=== PATIENT | female | born 1940 | race Caucasian/White ===

== ENCOUNTER → 2016-11-27 | Outpatient (CLI) | payer OTHER ==
[~2016-11-27] MED LIST: ASPI-435 PO; CHOL100027 PO; CLTP PO; DYZ PO; MAGN500C PO; METO25TA3 PO; MULT-506 PO; NAPR500T3 PO; SIMV20TA2 PO; SYN125 PO
[2016-11-27 12:48] LABS: ESTIMATED AVERAGE GLUCOSE 137 mg/dl; HA1C FLAG Normal (Normal)
[2016-11-27 13:04] LABS: BLOOD UREA NITROGEN 23 mg/dl (7-18); BUN/CREATININE RATIO 30.5 (10-20); CALCIUM 9.5 mg/dl (8.5-10.1); CARBON DIOXIDE 32 mmol/L (21-32); CHLORIDE 106 mmol/L (98-107); CREATININE 0.74 mg/dl (0.60-1.20); GLUCOSE 140 mg/dl (70-99); POTASSIUM 3.6 mmol/L (3.5-5.1); SODIUM 141 mmol/L (136-145)
== END | disposition home or self-care (01) ==
LOC: C.LABPVFM 10:04
PROVIDERS: ATTEND Nurse Practitioner
DX: I10 Essential (primary) hypertension (principal); E03.9 Hypothyroidism, unspecified; R73.01 Impaired fasting glucose

== ENCOUNTER 2019-10-05 21:30 | Inpatient (IN) ==
[2019-10-05] MEDS ORDERED: SODIUM CHLORIDE 0.9% 1000ML 1,000 ML IV ONE (21:52)
[2019-10-05 22:25] LABS: Eosinophils # (auto) 0.02 K/uL (0-0.5); Eosinophils % (auto) 0.1 %; Hematocrit (blood only) 48.5 % (37-47); Hemoglobin 16.7 g/dL (12.0-16.0); Immature Granulocytes # (auto) 0.03 K/uL (0.00-0.02); Immature Granulocytes % (auto) 0.2 %; Lymphocytes % (auto) 10.4 %; Mean Corpuscular Hemoglobin 32.4 pg (25-34); Mean Corpuscular Hgb Conc 34.4 g/dL (32-36); Mean Platelet Volume 10.5 fL (7.4-10.4); Monocytes # (auto) 1.31 K/uL (0.11-0.59); Monocytes % (auto) 9.7 %; Neutrophils # (auto) 10.72 K/uL (1.4-6.5); Neutrophils % (auto) 79.6 %; Platelet Count 355 K/uL (130-400); RDW Coefficient of Variation 13.5 % (11.5-14.5); RDW Standard Deviation 46.1 fL (36.4-46.3); Red Blood Count 5.16 M/uL (4.2-5.4); White Blood Count 13.48 K/uL (4.8-10.8)
[2019-10-05 22:41] LABS: Alanine Aminotransferase 45 U/L (12-78); Albumin Level 3.5 gm/dl (3.4-5.0); Aspartate Aminotransferase 27 U/L (15-37); BUN Creatinine Ratio 33.4 (10-20); Blood Urea Nitrogen 34 mg/dl (7-18); Calcium 9.9 mg/dl (8.5-10.1); Carbon Dioxide 35 mmol/L (21-32); Chloride 100 mmol/L (98-107); Creatinine Clr Calc Pharmacy 49.7 ml/min; Est GFR (African American) 60.9; Est GFR (Non-African American) 52.5; Glucose 155 mg/dl (70-99); Magnesium 2.4 mg/dl (1.8-2.4); Sodium 139 mmol/L (136-145)
[2019-10-05 22:52] LABS: Albumin Globulin Ratio 0.9 (0.9-2); Alkaline Phosphatase 58 U/L (45-117); Bilirubin,Total 1.1 mg/dl (0.2-1); Globulin 3.8 gm/dl (2.5-4.0); Total Protein 7.3 gm/dl (6.4-8.2); Troponin I < 0.015 ng/ml (0-0.045)
[2019-10-05] MEDS ORDERED: OPTIRAY 320 125ml IV PRN (23:50)
[2019-10-05 23:59] LABS: Appearance Urine Clear (Clear); Bacteria Urine Automated Negative (Negative); Bilirubin Urine Negative (Negative); Blood Urine Trace (Negative); Color Urine Yellow; Glucose Urine UA Negative (Negative); Ketones Urine Trace (Negative); Leukocyte Esterase Urine 1+ (Negative); Nitrite Urine Negative (Negative); Protein Urine Trace (Negative); Specific Gravity Urine 1.022 (1.000-1.030); Urobilinogen Urine Negative (Negative)
--- NOTE | 2019-10-06 00:16 | Emergency Department Note ---
History of Present Illness General Chief complaint: Fall Stated complaint: WEAKNESS, FALL, FATIGUE Time Seen by Provider: 10/05/19 21:33 Source: patient Mode of arrival: EMS Limitations: no limitations History of Present Illness This patient is an 79-year-old female who presents to the emergency department via EMS for evaluation of weakness and a fall. The patient reports that she fell while getting up to go to the bathroom tonight. She believes that she was tired and may have tripped. Patient does report she has been more weak than normal over the past 4 to 5 days. She states that this started after being outside in the hot sun unloading groceries. She feels it may be heat related. She states that over the past 4 to 5 days, she has been very weak and has wanted to do nothing but sleep all day. She reports some weakness in her left arm which also has been present for several days. She reports a prior supraspinatus repair of the arm. The patient states that she did not strike her head or injure anything when she fell tonight. She states that she tripped and caught herself and landed in a seated position in the bathtub. She called her neighbor, who is a PA and came to help her and recommended that she come here f or evaluation. She denies fevers, headache, chest pain, shortness of breath, abdominal pain, vomiting or urinary symptoms. Home Medications Home Medications Medication Instructions Recorded Confirmed Type Synthroid 125 mcg tablet 125 mcg PO DAILY #90 tab NS 09/26/19 10/05/19 Rx metoprolol succinate 25 mg 25 mg PO DAILY #30 tab 09/26/19 10/05/19 Rx tablet,extended release 24 hr All Day Energy 1 tab PO DAILY 10/05/19 10/05/19 History Probiotic & Vit B 1 tab PO DAILY 10/05/19 10/05/19 History cephalexin [Keflex] 250 mg PO TID 10/05/19 10/05/19 History Allergies Allergy/AdvReac Type Severity Reaction Status Date / Time Penicillins Allergy Unknown HIVES TO Verified 10/05/19 23:03 "CILLINS" Past Med/Surg History Medical History Arthralgia of multiple sites (Chronic) History of hyperlipidemia HTN (hypertension) (Chronic) Hypothyroidism (Chronic) Impaired fasting glucose (Chronic) Open fracture of great toe of left foot (Resolved) Open fracture of great toe of left foot (Inactive) Surgical History History of knee replacement Hx of tonsillectomy Hx of wisdom tooth extraction S/P cholecystectomy (Inactive) Social History Smoking Status: Never smoker Hx Alcohol Use: Yes Alcohol type: wine Hx Substance Use: No Preferred Language: Libyan Communication Ability: Effective Plastics Patternmaker Required: No Beliefs That Will Affect Care: None marital status: Unknown Current Living Situation: Other Current Living Situation Comment: With partner Dalia Angel current occupational status: retired Feels Safe at Home: Yes caffeine: Yes Dental Care, Regularly: No Physical Activity Frequency: Does not Exercise Seatbelt Use: always Sunscreen Use: Yes Review of Systems A total of 10 systems reviewed and were otherwise negative Physical Exam Vital Signs Vital Signs - 24 hr 10/05/19 21:35 10/05/19 21:38 10/05/19 21:39 Temperature 37.0 C Temperature Source Oral Pulse Rate 71 72 71 Pulse Rate from SpO2 Sensor 71 71 Respiratory Rate 20 17 18 Respiratory Effort / Characteristics Non-Labored Spontaneous Respiratory Depth Normal Respiratory Pattern Regular Blood Pressure 203/89 H 203/89 H Blood Pressure Mean 134 127 Pulse Oximetry 95 95 95 Oxygen Delivery Method Room Air Sepsis Recent Fever Within 48 Hours No Sepsis New/Unexplained Change in Mental Status No Sepsis Action Taken by Nursing No Action Required 10/05/19 22:00 10/05/19 22:11 10/05/19 22:30 Temperature Temperature Source Pulse Rate 70 69 69 Pulse Rate from SpO2 Sensor Respiratory Rate 19 Respiratory Effort / Characteristics Respiratory Depth Respiratory Pattern Blood Pressure 173/86 H Blood Pressure Mean 127 Pulse Oximetry Oxygen Delivery Method Sepsis Recent Fever Within 48 Hours Sepsis New/Unexplained Change in Mental Status Sepsis Action Taken by Nursing 10/05/19 22:31 Temperature Temperature Source Pulse Rate 69 Pulse Rate from SpO2 Sensor Respiratory Rate 23 Respiratory Effort / Characteristics Respiratory Depth Respiratory Pattern Blood Pressure 198/92 H Blood Pressure Mean 127 Pulse Oximetry Oxygen Delivery Method Sepsis Recent Fever Within 48 Hours Sepsis New/Unexplained Change in Mental Status Sepsis Action Taken by Nursing VITALS: Vitals are noted on the nurse's note and reviewed by myself. GENERAL: This is an 79-year-old female, in no acute distress, well-developed well-nourished. SKIN: The skin was without rashes, erythema, edema, or bruising. HEAD: Normocephalic atraumatic. EARS: External auditory canals clear, tympanic membranes pearly lay without erythema or effusion bilaterally. EYES: Pupils equal round and reactive to light and accommodation. Extraocular movements intact. MOUTH: Mucous membranes moist. Tonsils are not enlarged. Pharynx without erythema or exudate. NECK: Supple without nuchal rigidity. No lymphadenopathy. HEART: Regular rate and rhythm without murmurs gallops or rubs. LUNGS: Clear to auscultation bilaterally without wheezes, rales or rhonchi. ABDOMEN: Positive bowel sounds x 4. Soft, nontender to palpation. MUSCULOSKELETAL: Patient is full range of motion/strength of her lower extremities. Patient has 2/5 strength in her left upper extremity, 3/5 strength in her right upper extremity. NEURO: Patient was alert and oriented to person place and time. Course Consultations Consultation #1: Dr. Clemente - [facility] [place] Administered Medications Acetaminophen (Tylenol) 650 mg PO Q4H PRN PRN Reason: pain/fever Stop: 11/05/19 03:22 Last Admin: 10/06/19 08:04 Dose: 650 mg Documented by: [id number] Enoxaparin Sodium (Lovenox) 40 mg SQ DAILY@1900 [facility] Stop: 11/05/19 18:59 Last Admin: 10/06/19 19:44 Dose: 40 mg Documented by: [id number] Ioversol (Optiray 320 125ml) 125 ml IV ONCE PRN PRN Reason: Interaction Checking Stop: 10/09/19 23:49 Last Admin: 10/05/19 23:50 Dose: 118 ml Documented by: [id number] Levothyroxine Sodium (Synthroid) 125 mcg PO DAILYBB [facility] Stop: 11/05/19 06:29 Last Admin: 10/06/19 05:25 Dose: 125 mcg Documented by: [id number] Metoprolol Succinate (Toprol Xl) 25 mg PO DAILY [facility] Stop: 11/05/19 08:59 Last Admin: 10/06/19 08:04 Dose: 25 mg Documented by: [id number] Discontinued Medications Hydralazine HCl (Hydralazine Hcl) 10 mg IV NOW [facility] Stop: 10/06/19 16:39 Last Admin: 10/06/19 17:00 Dose: 10 mg Documented by: [id number] Sodium Chloride (Nss 1000ml) 1,000 mls @ 999 mls/hr IV .Q1H1M ONE Stop: 10/05/19 22:52 Last Infusion: 10/05/19 23:40 Dose: 0 mls/hr Documented by: [id number] Admin: 10/05/19 22:19 Dose: 999 mls/hr Documented by: [id number] Potassium Chloride/Sodium Chloride (Normal Saline W/20 Meq Kcl) 20 meq in 1,000 mls @ 100 mls/hr IV .Q10H TONA Stop: 10/06/19 23:59 Last Admin: 10/06/19 15:58 Dose: 100 mls/hr Documented by: [id number] Infusion: 10/06/19 14:50 Dose: 100 mls/hr Documented by: [id number] Infusion: 10/06/19 13:20 Dose: 100 mls/hr Documented by: [id number] Infusion: 10/06/19 12:30 Dose: 0 mls/hr Documented by: [id number] Admin: 10/06/19 04:00 Dose: 100 mls/hr Documented by: [id number] Potassium Chloride (Klor-Con M20) 20 meq PO NOW STA Stop: 10/06/19 08:14 Last Admin: 10/06/19 08:48 Dose: 20 meq Documented by: [id number] Potassium Chloride (Klor-Con M20) 20 meq PO NOW STA Stop: 10/06/19 18:21 Last Admin: 10/06/19 19:07 Dose: 20 meq Documented by: [id number] Medical Decision Making Differential Diagnosis Infection, dehydration, metabolic abnormality, hypo/hyperglycemia, electrolyte disturbance, anemia, hypoxia, cardiac sources, intracerebral event, toxicologic, neurologic, as well as other pathologies. Home Medications Current Medication List: was personally reviewed by me Laboratory Data Attestation: I reviewed the patient's lab results. Result diagrams: 10/06/19 17:28 10/06/19 17:28 Lab Results 10/05/19 10/05/19 10/05/19 Range/Units 22:14 22:14 22:14 WBC 13.48 H (4.8-10.8) K/uL RBC 5.16 (4.2-5.4) M/uL Hgb 16.7 H (12.0-16.0) g/dL Hct 48.5 H (37-47) % MCV 94.0 (80-100) fL MCH 32.4 (25-34) pg MCHC 34.4 (32-36) g/dL RDW Std Deviation 46.1 (36.4-46.3) fL RDW Coeff of Evan 13.5 (11.5-14.5) % Plt Count 355 (130-400) K/uL MPV 10.5 H (7.4-10.4) fL Immature Gran % (Auto) 0.2 % Neut % (Auto) 79.6 % Lymph % (Auto) 10.4 % [place] % (Auto) 9.7 % Eos % (Auto) 0.1 % Baso % (Auto) 0.0 % Neut # (Auto) 10.72 H (1.4-6.5) K/uL Lymph # (Auto) 1.40 (1.2-3.4) K/uL [place] # (Auto) 1.31 H (0.11-0.59) K/uL Eos # (Auto) 0.02 (0-0.5) K/uL Baso # (Auto) 0.00 (0-0.2) K/uL Immature Gran # (Auto) 0.03 H (0.00-0.02) K/uL ESR 21 (0-21) mm/hr Sodium 139 (136-145) mmol/L Potassium 3.0 L (3.5-5.1) mmol/L Chloride 100 (98-107) mmol/L Carbon Dioxide 35 H (21-32) mmol/L Anion Gap 4.0 (3-11) BUN 34 H (7-18) mg/dl Creatinine 1.01 (0.6-1.2) mg/dl Est Cr Clr Drug Dosing 49.7 ml/min Est GFR ( Amer) 60.9 Est GFR (Non-Af Amer) 52.5 BUN/Creatinine Ratio 33.4 H (10-20) Glucose 155 H (70-99) mg/dl Calcium 9.9 (8.5-10.1) mg/dl Phosphorus 2.7 (2.5-4.9) mg/dl Magnesium 2.4 (1.8-2.4) mg/dl Total Bilirubin 1.1 H (0.2-1) mg/dl AST 27 (15-37) U/L ALT 45 (12-78) U/L Alkaline Phosphatase 58 (45-117) U/L Total Creatine Kinase 165 (26-192) U/L Troponin I < 0.015 (0-0.045) ng/ml C-Reactive Protein < 0.29 (0-0.29) mg/dl Total Protein 7.3 (6.4-8.2) gm/dl Albumin 3.5 (3.4-5.0) gm/dl Globulin 3.8 (2.5-4.0) gm/dl Albumin/Globulin Ratio 0.9 (0.9-2) TSH 1.730 (0.300-4.500) uIu/ml Urine Color Urine Appearance (Clear) Urine pH (4.5-7.5) Ur Specific [place] (1.000-1.030) Urine Protein (Negative) Urine Glucose (UA) (Negative) Urine Ketones (Negative) Urine Blood (Negative) Urine Nitrite (Negative) Urine Bilirubin (Negative) Urine Urobilinogen (Negative) Ur Leukocyte Esterase (Negative) Urine WBC (Auto) (0-5) /hpf Urine RBC (Auto) (0-4) /hpf U Hyaline Cast (Auto) (0-5) /lpf U Epithel Cells (Auto) (0-5) /lpf Urine Bacteria (Auto) (Negative) 10/05/19 Range/Units 23:40 WBC (4.8-10.8) K/uL RBC (4.2-5.4) M/uL Hgb (12.0-16.0) g/dL Hct (37-47) % MCV (80-100) fL MCH (25-34) pg MCHC (32-36) g/dL RDW Std Deviation (36.4-46.3) fL RDW Coeff of [place] (11.5-14.5) % Plt Count (130-400) K/uL MPV (7.4-10.4) fL Immature Gran % (Auto) % Neut % (Auto) % Lymph % (Auto) % [place] % (Auto) % Eos % (Auto) % Baso % (Auto) % Neut # (Auto) (1.4-6.5) K/uL Lymph # (Auto) (1.2-3.4) K/uL [place] # (Auto) (0.11-0.59) K/uL Eos # (Auto) (0-0.5) K/uL Baso # (Auto) (0-0.2) K/uL Immature Gran # (Auto) (0.00-0.02) K/uL ESR (0-21) mm/hr Sodium (136-145) mmol/L Potassium (3.5-5.1) mmol/L Chloride (98-107) mmol/L Carbon Dioxide (21-32) mmol/L Anion Gap (3-11) BUN (7-18) mg/dl Creatinine (0.6-1.2) mg/dl Est Cr Clr Drug Dosing ml/min Est GFR ( Amer) Est GFR (Non-Af Amer) BUN/Creatinine Ratio (10-20) Glucose (70-99) mg/dl Calcium (8.5-10.1) mg/dl Phosphorus (2.5-4.9) mg/dl Magnesium (1.8-2.4) mg/dl Total Bilirubin (0.2-1) mg/dl AST (15-37) U/L ALT (12-78) U/L Alkaline Phosphatase (45-117) U/L Total Creatine Kinase (26-192) U/L Troponin I (0-0.045) ng/ml C-Reactive Protein (0-0.29) mg/dl Total Protein (6.4-8.2) gm/dl Albumin (3.4-5.0) gm/dl Globulin (2.5-4.0) gm/dl Albumin/Globulin Ratio (0.9-2) TSH (0.300-4.500) uIu/ml Urine Color Yellow Urine Appearance Clear (Clear) Urine pH 7.0 (4.5-7.5) Ur Specific [place] 1.022 (1.000-1.030) Urine Protein Trace H (Negative) Urine Glucose (UA) Negative (Negative) Urine Ketones Trace H (Negative) Urine Blood Trace H (Negative) Urine Nitrite Negative (Negative) Urine Bilirubin Negative (Negative) Urine Urobilinogen Negative (Negative) Ur Leukocyte Esterase 1+ H (Negative) Urine WBC (Auto) 5-10 H (0-5) /hpf Urine RBC (Auto) 5-10 H (0-4) /hpf U Hyaline Cast (Auto) 5-10 H (0-5) /lpf U Epithel Cells (Auto) 5-10 H (0-5) /lpf Urine Bacteria (Auto) Negative (Negative) Imaging Data Attestation: I personally reviewed and interpreted this imaging study as follows: My Impression: CHEST 1 VIEW: No pulmonary consolidation or pneumothorax. No cardiomegaly. Bony silhouette is unremarkable. Radiologist's Impression: CT HEAD: No intracranial hemorrhage or skull fracture. Involutional changes with small vessel disease. CTA HEAD: No central occlusion related to the [place]. Atherosclerotic changes. CTA NECK: No occlusion or high-grade stenosis. Bovine arch. Fracture of uncertain chronicity versus degenerative changes/calcific tendinopathy related to left shoulder area. Should change of the right shoulder. Radiologist: Brando Milner M.D. ECG Data Attestation: I personally reviewed and interpreted this ECG as follows: Indication: + weakness Rate (beats per minute): 68 Rhythm: + normal sinus ECG Intervals/blocks: + Normal QRS ECG ST segments: + Normal ST segments Change: no significant change Blood Pressure Blood Pressure Findings: Elevated blood pressure Blood Pressure Disposition: elevated BP felt to be situational MDM Narrative The patient is an 79-year-old female who presents today after a fall. Patient states that she has been progressively weaker over the past 4 or 5 days. She reports that she is having a hard time getting around. Patient's neighbor who is a healthcare provider went to her house today to help her and had a very difficult time getting the patient up after her fall. Patient has some weakness of both arms, left greater than right. She initially reports this has been going on for for 5 days, however review of her records shows that the patient has been seen by her primary care provider for the same symptoms in the past. Labs revealed a mild leukocytosis of 13,000. The source of this is unclear. Patient is hypokalemic. Kidney function is within normal limits. Urinalysis is not suggestive of infection. CT of the head as well as CT angiogram of the head and neck were performed and reviewed by radiology with no acute findings. Given the patient's weakness and difficulty getting around at home, I do feel inpatient evaluation is warranted. Patient was agreeable with the plan of care. [facility] agreed to evaluate the patient for further care. Impression & Plan Generalized weakness, Fall, Hypokalemia Discharge Plan Visit Data *Final* Discharge Date/Time: 10/06/19 01:59 Chief Complaint: Fall Stated Complaint: WEAKNESS, FALL, FATIGUE ED Provider: Mp Cuellar ED Midlevel Provider: Niesha Tucker Discharge Problem: Generalized weakness, Fall, Hypokalemia Patient Disposition: Admitted As Inpatient Discharge Instructions Interventions: ED Discharge Assessment Last Done: 10/06/19 01:59 Addendum (Blank) Addendum October 07, 2019 00:23 HPI: 79F with pmhx of HTN, HLD recently not taking her medications p/w fall in the setting of worsening generalized weakness. Patient is a poor historian. Reports to me that she has not been able to move both arms for past 6 days, yet cannot explain how she performs ADLs like this. PE: AFVSS, NAD NC/AT RRR CTAB Abd soft NT/ND Ext: no edema, erythema Neuro: 4+/5 strength BLE, 2/5 strength BUE. Plan: CT head, CTA head and neck without ICH, ischemia or occlusion of large vessels per preliminary [facility] report. BUN 34. H/H 16/48 similar to recent but suggestive dehydration. EKG without overt acute ischemia. Troponin negative. Admit for generalized weakness/confusion. I reviewed the patient's past medical history, medications, and visit nursing notes. I discussed the case with the physician clinical nursing assistant, examined the patient, and agree with the findings and plan as documented in GUERDA Tucker's note. Discharge Problem: Fall Qualifiers: Encounter type: initial encounter Qualified Code(s): W19.XXXA - Unspecified fall, initial encounter
--- NOTE | 2019-10-06 01:12 | History & Physical Report ---
Date of Service October 06, 2019 Assessment & Plan (1) Left arm weakness: Left shoulder pain and weakness, limited mobility affecting ADLs. Calcific tendinosis noted on CT imaging. -Check ESR for possible PMR -Check CK -MRI left shoulder -PT/OT evaluation -Rest/Heat. Patient may benefit from steroid injection Present on Admission?: Yes (2) Hypothyroidism: Chronic. Stable -Continue Synthroid 125mcg po daily Present on Admission?: Yes (3) HTN (hypertension): Blood pressure stable -Continue Metoprolol F/E/N - NSS with KCl repletion, monitor electrolytes, Heart healthy diet as tolerated Ppx- Low risk for DVT Code - Full Dispo - Observation to medical floor Admission and Anticipated Discharge Date Admission Date: 10/06/19 Anticipated date of discharge: 10/07/19 History of Present Illness Chief Complaint: fall, weakness Primary Care Provider: ANNY Tinoco Colleen Sanchez is an 79yo C female presenting from home after a mechanical fall. Patient recently completed treatment for a LUE cellulitis with a course of Keflex. She reports feeling weak for the last 4-5 days as well as having worsening pain in her left shoulder as well as new pain in her right shoulder. This afternoon patient tripped and fell into her bathtub. She denies LOC or head trauma. No CP/SOB/Palpitations/Dizziness/Numbness/Weakness or incontinence preceding or following the fall. She was unable to get out of the bathtub due to weakness. She required assistance from 3 people to get her from the bathroom and ambulate to her bed. Patient complaining of left shoulder pain and weakness, inability to lift her arms and difficulty with ADLs. She denies headache/jaw claudication or leg weakness. No fevers/chills/CP/SOB/cough. No recent travel or exposure to Covid-19 positive individuals. She was evaluated by her PCP for this complaint on 09/26/19. Imaging was offered but patient declined at that time. OMT was offered as well. ER Course: NSS X 1L Allergies Allergy/AdvReac Type Severity Reaction Status Date / Time Penicillins Allergy Unknown HIVES TO Verified 10/05/19 23:03 "CILLINS" Home Medications Home Medications Medication Instructions Recorded Confirmed Type Synthroid 125 mcg tablet 125 mcg PO DAILY #90 tab NS 09/26/19 10/05/19 Rx metoprolol succinate 25 mg 25 mg PO DAILY #30 tab 09/26/19 10/05/19 Rx tablet,extended release 24 hr [employer] 1 tab PO DAILY 10/05/19 10/05/19 History Probiotic & Vit B 1 tab PO DAILY 10/05/19 10/05/19 History cephalexin [Keflex] 250 mg PO TID 10/05/19 10/05/19 History Past Med/Surg History Social History Smoking Status: Never smoker Hx Alcohol Use: No Hx Substance Use: No Preferred Language: [place]serratian marital status: Unknown Current Living Situation: Other Current Living Situation Comment: room mate current occupational status: retired Feels Safe at Home: Yes caffeine: Yes Dental Care, Regularly: No Physical Activity Frequency: Does not Exercise Seatbelt Use: always Sunscreen Use: Yes Review of Systems Review of Systems: All systems reviewed & are unremarkable except as noted in HPI & below Physical Exam Physical Exam: General: patient resting comfortably, NAD, non-toxic in appearance, AA&O x 4 Skin: warm, dry, intact, no rashes or lesions HEENT: NC/AT, PERRL, EOMI, anicteric sclera, conjunctiva without injection, external ear normal to inspection and nontender, nares patent, moist mucus membranes, dentition intact, no oropharyngeal lesions, neck supple, trachea midline, no LAD, no thyromegaly, no JVD, no temporal artery tenderness or nodularity Heart: +S1/S2, regular, no m/r/g Lungs: equal air entry bilaterally, no rales/rhonchi/wheezes Abd: +BS, soft, NT/ND, no masses/organomegaly/ascites Ext: warm, 2+ pulses in UE/LE bilaterally, no clubbing/cyanosis or edema Neuro: chronic right foot drop. 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 Patient unable to lift arms due to weakness Results & Data Results & [facility] ([facility] Vital Signs (Past 12 Hours) Vital Signs Temp Pulse Resp BP Pulse Ox 10/05/19 22:31 69 23 198/92 H 10/05/19 22:30 69 10/05/19 22:11 69 19 173/86 H 10/05/19 22:00 70 10/05/19 21:39 71 18 95 10/05/19 21:38 37.0 C 72 17 203/89 H 95 10/05/19 21:35 71 20 203/89 H 95 Laboratory Results Lab Results 10/05/19 10/05/19 10/05/19 Range/Units 22:14 22:14 23:40 WBC 13.48 H (4.8-10.8) K/uL RBC 5.16 (4.2-5.4) M/uL Hgb 16.7 H (12.0-16.0) g/dL Hct 48.5 H (37-47) % MCV 94.0 (80-100) fL MCH 32.4 (25-34) pg MCHC 34.4 (32-36) g/dL RDW Std Deviation 46.1 (36.4-46.3) fL RDW Coeff of Evan 13.5 (11.5-14.5) % Plt Count 355 (130-400) K/uL MPV 10.5 H (7.4-10.4) fL Immature Gran % (Auto) 0.2 % Neut % (Auto) 79.6 % Lymph % (Auto) 10.4 % [place] % (Auto) 9.7 % Eos % (Auto) 0.1 % Baso % (Auto) 0.0 % Neut # (Auto) 10.72 H (1.4-6.5) K/uL Lymph # (Auto) 1.40 (1.2-3.4) K/uL [place] # (Auto) 1.31 H (0.11-0.59) K/uL Eos # (Auto) 0.02 (0-0.5) K/uL Baso # (Auto) 0.00 (0-0.2) K/uL Immature Gran # (Auto) 0.03 H (0.00-0.02) K/uL Sodium 139 (136-145) mmol/L Potassium 3.0 L (3.5-5.1) mmol/L Chloride 100 (98-107) mmol/L Carbon Dioxide 35 H (21-32) mmol/L Anion Gap 4.0 (3-11) BUN 34 H (7-18) mg/dl Creatinine 1.01 (0.6-1.2) mg/dl Est Cr Clr Drug Dosing 49.7 ml/min Est GFR ( Amer) 60.9 Est GFR (Non-Af Amer) 52.5 BUN/Creatinine Ratio 33.4 H (10-20) Glucose 155 H (70-99) mg/dl Calcium 9.9 (8.5-10.1) mg/dl Magnesium 2.4 (1.8-2.4) mg/dl Total Bilirubin 1.1 H (0.2-1) mg/dl AST 27 (15-37) U/L ALT 45 (12-78) U/L Alkaline Phosphatase 58 (45-117) U/L Troponin I < 0.015 (0-0.045) ng/ml Total Protein 7.3 (6.4-8.2) gm/dl Albumin 3.5 (3.4-5.0) gm/dl Globulin 3.8 (2.5-4.0) gm/dl Albumin/Globulin Ratio 0.9 (0.9-2) TSH 1.730 (0.300-4.500) uIu/ml Urine Color Yellow Urine Appearance Clear (Clear) Urine pH 7.0 (4.5-7.5) Ur Specific [place] 1.022 (1.000-1.030) Urine Protein Trace H (Negative) Urine Glucose (UA) Negative (Negative) Urine Ketones Trace H (Negative) Urine Blood Trace H (Negative) Urine Nitrite Negative (Negative) Urine Bilirubin Negative (Negative) Urine Urobilinogen Negative (Negative) Ur Leukocyte Esterase 1+ H (Negative) Urine WBC (Auto) 5-10 H (0-5) /hpf Urine RBC (Auto) 5-10 H (0-4) /hpf U Hyaline Cast (Auto) 5-10 H (0-5) /lpf U Epithel Cells (Auto) 5-10 H (0-5) /lpf Urine Bacteria (Auto) Negative (Negative) Diagnostic Findings CXR - no acute process CT Head - No intracranial hemorrhage or skull fractures. Involutional changes with small vessel CTA Neck - No occlusion or high-grade stenosis. Bovine arch. Fracture of uncertain chronicity versus degenerative changes/calcific tendinopathy related to left shoulder area. CTA Head - No central occlusion related to the [place]. Atherosclerotic changes Code Status & VTE Plan Code Status FUll PG Care Time/CCT Total # of Minutes Spent Total Time Spent with Patient: Total time spent is greater than 50% in coordination of care (as documented) at patient's floor/unit and/or counseling patient: Coding Level of Care Code 51533 Initial Inpt Care Lvl 2 Diagnoses Left arm weakness R29.898 Hypothyroidism E03.9 Hypothyroidism type: unspecified HTN (hypertension) I10 Hypertension type: essential hypertension (1) Hypothyroidism Hypothyroidism type: unspecified Qualified Code(s): E03.9 - Hypothyroidism, unspecified (2) HTN (hypertension) Hypertension type: essential hypertension Qualified Code(s): I10 - Essential (primary) hypertension
[2019-10-06] MEDS: NSS + 20MEQ KCL 20 MEQ/1,000 ML BAG IV SCH ×2 (04:00→15:58)
[2019-10-06 04:03] LABS: C Reactive Protein < 0.29 mg/dl (0-0.29); Creatine Kinase 165 U/L (26-192); Phosphorus 2.7 mg/dl (2.5-4.9)
[2019-10-06] MEDS: LEVOTHYROXINE SODIUM 125 MCG TABLET PO SCH (05:25)
--- NOTE | 2019-10-06 06:41 | CT Scan Report ---
CT head/brain wo con CLINICAL HISTORY: 79 years-old Female with weakness. Acute head injury status post fall. Acute weakn ess TECHNIQUE: Multiple axial CT images of the head were obtained without contrast. A dose lowering tech nique was utilized adhering to the principles of ALARA. COMPARISON: CTA had and neck of same day FINDINGS: No acute intracranial hemorrhage, midline shift, intracranial mass, hydrocephalus, territorial ischem ia or abnormal extra-axial collection. Age-related involutional changes. Patchy white matter hypodens ities suggest chronic microvascular ischemic disease. Cerebral vascular calcifications. The calvarium is intact. Trace right mastoid effusion. The left mastoid air cells are clear. The par anasal sinuses are also generally clear. Soft tissues and orbits are unremarkable. IMPRESSION: No acute intracranial abnormality. ACT 112: Negative or not required by law. The above report was generated using voice recognition software. It may contain grammatical, syntax o r spelling errors. Electronically signed by: Hong Cox M.D. 10/06/2019 6:39 AM
--- NOTE | 2019-10-06 06:53 | CT Scan Report ---
CT angio head w con CLINICAL HISTORY: 79 years-old Female with weakness. Acute head injury status post fall. Acute wea kness COMPARISON STUDY: Head CT of same day TECHNIQUE: Following the IV administration of 118 cc of Optiray 320, CT angiogram of the brain was pe rformed from the skull base to the vertex. Images are reviewed in the axial, sagittal, and coronal pl anes. 3-D MIPS images are created and assessed. IV contrast was administered without complication. Al l measurements were obtained according to NASCET criteria. A dose lowering technique was utilized adh ering to the principles of ALARA. CT DOSE: 1310.49 mGy.cm FINDINGS: Calcified plaque of the cavernous and supraclinoid segments of the internal carotid arterie s without high-grade stenosis. There is short segment 2 mm area of high-grade luminal narrowing invol ving the left distal M1 segment (image 129 series 5). There is a tiny focal area of high-grade lumina l narrowing also noted involving the mid aspect of the right M1 segment on image 129 series 5. Mild m ultifocal luminal narrowing of the anterior cerebral arteries. Short segment areas of high-grade john nal narrowing involve the right A2 segment on image 147 of series 5 and also on image 181 of series 5 . Calcified plaque of the bilateral V4 segments of the vertebral arteries. Short segment area of high-g rade stenosis involves the left V4 segment, image 45 series 5 secondary to atheromatous plaque. There is mild stenosis involving the right vertebral artery. Patent basilar artery. Posterior cerebral art eries are patent. There is moderate luminal narrowing involving the left P1 segment on image 124 seri es 5. Cerebral venous sinuses are patent. No aneurysm or dissection. There is no abnormal intracrania l enhancement. No acute calvarial fracture. IMPRESSION: 1. 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 This f inding was called/faxed to the nurses station at time of review. 2. No aneurysm, dissection or proximal branch occlusion. ACT 112: Negative or not required by law. The above report was generated using voice recognition software. It may contain grammatical, syntax o r spelling errors. Electronically signed by: Hong Cox M.D. 10/06/2019 6:51 AM
--- NOTE | 2019-10-06 07:03 | XRay Report ---
XR chest 1V portable CLINICAL HISTORY: weakness COMPARISON STUDY: No previous studies for comparison. FINDINGS: The heart is the upper limits of normal in size. There is no overt failure. There is no lob ar consolidation. There is minor basilar atelectasis. Arthritic changes are present within both shoul ders. There is evidence of calcific tendinitis.[ IMPRESSION: No active disease in the chest. ACT 112: Negative or not required by law. Electronically signed by: Avel Yu M.D. 10/06/2019 7:01 AM
--- NOTE | 2019-10-06 07:11 | CT Scan Report ---
CT angio neck with con CLINICAL HISTORY: weakness TRAUMA. POSSIBLE STROKE. COMPARISON STUDY: No previous studies for comparison. TECHNIQUE: CT angiography was performed from the aortic arch to the skull base. MIP imaging was perfo rmed. The patient was scanned in a dynamic helical fashion during intravenous administration of 118 c c of Optiray 320. A dose lowering technique was utilized adhering to the principles of ALARA. CT DOSE: Technique: CT angiogram of the carotid and vertebral arteries was obtained using intravenous contrast and 3-D reconstruction. NASCET criteria was utilized. Findings: The right carotid revealed no evidence of aneurysm and no evidence of dissection. There is no evidenc e of hemodynamic significant stenosis. The left carotid revealed no evidence of hemodynamic significant stenosis. There is no evidence of an eurysm. There is no evidence of dissection. There is no evidence of vertebral occlusion. There is a 50% diameter stenosis of the distal left vert ebral artery. There is no evidence of vertebral artery dissection. There is a bovine arch. IMPRESSION: 1. No evidence of hemodynamically significant carotid stenosis 2. 50% diameter stenosis of the distal left vertebral artery 3. Bovine arch ACT 112: Negative or not required by law. Electronically signed by: Avel Yu M.D. 10/06/2019 7:09 AM
[2019-10-06] MEDS: METOPROLOL SUCC 25MG EXT REL TAB PO SCH (08:04)
[2019-10-06] MEDS: ACETAMINOPHEN 325 MG TAB PO PRN (08:04)
[2019-10-06] MEDS ORDERED: POTASSIUM CHLORIDE 20 MEQ TABCR PO STA ×2 (08:13→18:20)
--- NOTE | 2019-10-06 08:55 | Electrocardiogram Report ---
Test Reason : Blood Pressure : / mmHG Vent. Rate : 068 BPM Atrial Rate : 068 BPM P-R Int : 160 ms QRS Dur : 094 ms QT Int : 448 ms P-R-T Axes : 053 018 055 degrees QTc Int : 476 ms Normal sinus rhythm Normal ECG When compared with ECG of 04-JUN-2013 12:26, Nonspecific ST abnormality no longer present Confirmed by Augie Garza ([id number]) on 10/06/2019 8:54:27 AM Referred By: REFERRED SELF Confirmed By:Augie Garza
--- NOTE | 2019-10-06 13:06 | Magnetic Resonance Report ---
MR shoulder LT wo con HISTORY: Postoperative pain, weakness, limited function of LUE TECHNIQUE: Multisequence, multiplanar MR imaging of the left shoulder was performed without the use o f intravenous contrast. IV contrast: None. COMPARISON STUDY: None. FINDINGS: AC joint: Moderate hypertrophic change. Trace amount of fluid within the subdeltoid region. Rotator cuff: Findings consistent with surgical sutures in the region of the supraspinatus tendon. Th ere appears to be at least a high-grade partial and are focally complete tear of the supraspinatus te ndon. There is mild musculotendinous retraction. The infraspinatus and subscapularis tendons are unremarkable. There is deformity of the lateral aspect of the humeral head presumably on the basis of old posttraum atic change versus postoperative change. Labrum: Generalized degenerative substance change. No well-defined acute tear. Biceps: Intact Bones: Degenerative and/or posttraumatic changes lateral aspect humeral head. This appears to be ric cute based on signal characteristics. Mild soft tissue contusion immediately anterior to the humeral head. Cartilage: Intact Miscellaneous: Intact IMPRESSION: 1. Mild soft tissue contusion anterior to the humeral head. 2. High-grade partial thickness tear versus focal complete tear mid and anterior aspect of the supras pinatus tendon. 3. Degenerative change of the outer cortical margin of the humeral head presumably on the basis of ol d trauma and/or postoperative change. 4. Generalized degenerative changes of the articular surfaces throughout. ACT 112: Negative or not required by law. The above report was generated using voice recognition software. It may contain grammatical, syntax or spelling errors. Electronically signed by: Cristino Man M.D. 10/06/2019 1:05 PM
[2019-10-06] MEDS ORDERED: HydrALAZINE HCL 20 MG/ML VIAL IV STA (16:38)
[2019-10-06 17:37] LABS: Basophils # (auto) 0.01 K/uL (0-0.2); Basophils % (auto) 0.1 %; Eosinophils # (auto) 0.01 K/uL (0-0.5); Eosinophils % (auto) 0.1 %; Hemoglobin 16.3 g/dL (12.0-16.0); Immature Granulocytes # (auto) 0.02 K/uL (0.00-0.02); Immature Granulocytes % (auto) 0.2 %; Lymphocytes # (auto) 1.71 K/uL (1.2-3.4); Lymphocytes % (auto) 14.3 %; Mean Corpuscular Hemoglobin 31.9 pg (25-34); Mean Corpuscular Volume 93.9 fL (80-100); Mean Platelet Volume 10.8 fL (7.4-10.4); Monocytes # (auto) 0.88 K/uL (0.11-0.59); Monocytes % (auto) 7.4 %; Neutrophils # (auto) 9.33 K/uL (1.4-6.5); Neutrophils % (auto) 77.9 %; Platelet Count 307 K/uL (130-400); RDW Coefficient of Variation 13.6 % (11.5-14.5); RDW Standard Deviation 46.6 fL (36.4-46.3); Red Blood Count 5.11 M/uL (4.2-5.4); White Blood Count 11.96 K/uL (4.8-10.8)
[2019-10-06 17:59] LABS: BUN Creatinine Ratio 28.7 (10-20); Calcium 9.3 mg/dl (8.5-10.1); Creatinine Clr Calc Pharmacy 63.6 ml/min; Est GFR (African American) 83.2; Est GFR (Non-African American) 71.8; Potassium 3.3 mmol/L (3.5-5.1)
--- NOTE | 2019-10-06 18:13 | Consultation Report ---
DATE OF CONSULTATION: 10/06/2019 HISTORY OF PRESENT ILLNESS: This is a right hand dominant 79-year-old female seen at the request of Dr. Gisela Clemente for left shoulder pain. Apparently, this 79-year-old female was in her usual state of health approximately 3 days prior to admission when she started to feel like she was overly tired and was sleeping more and felt that may be heat related, however, she is uncertain. She also mentioned that she had a chronic left lower molar that she was concerned about a possible abscess. She had seen her primary dentist before and addressed this; however, was hoping to have it pulled; however, then had no opportunity due to current events. She had a fall on 10/04, says she tripped and caught herself and landed in the seated position in the bathtub. She called her neighbor who is a PA and came to help her, recommended that she come to the hospital for evaluation. She denied fever or chills. She does have occasional headaches and the dental pain, lower left molar. Denies any abdominal or chest pain. Denied vomiting, hematemesis, melena, or urinary symptoms. She had a prior left rotator cuff repair by Dr. Carl Clemente in 2000, which was a mini open repair and had been doing well with that until sometime around early September. She reached up for a dog brush and felt pain in the shoulder sometime after that. The left shoulder had been her strong shoulder up until the beginning of September of this year. 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 She has weakness and inability to elevate or rotate the shoulder. PAST MEDICAL HISTORY: Arthralgia, chronic. History of hyperlipidemia. Dental pain, left lower molar. Hypertension. Hypothyroidism. Impaired fasting glucose. Chronic open fracture of the great toe of the left foot. PAST SURGICAL HISTORY: Knee replacements. History of tonsillectomy. [place] tooth extractions, multiple. Cholecystectomy. Left open rotator cuff repair by Dr. Carl Clemente in 2000. ALLERGIES: PENICILLIN, UNKNOWN HIVES TO CILLINS; however, the patient has been taking Keflex on a regular intermittent basis for multiple ailments for years without any difficulty. MEDICATIONS: Synthroid 125 daily, metoprolol 25 mg daily, All-Day Energy 1 tab daily, probiotic and vitamin B 1 tab daily, Keflex 250 mg p.o. t.i.d. occasionally for dental pain with Anbesol [id number] on occasion. SOCIAL HISTORY: She is since 1976. She lives with her partner, Amina Easton. Denies tobacco use. Drinks wine occasionally. No drug use. She works at [employer] in [place]. She is retired otherwise. PHYSICAL EXAMINATION: This is an 79-year-old female, sitting supine in her hospital room bed. She is alert and oriented x3. Speech clear and fluent. Affect is appropriate. Examination of the left upper extremity demonstrates skin warm, dry and intact. Cap refill less than 2 seconds. Radial pulse 2/4. Radial, ulnar, median and axillary nerve sensory and motor function are intact. She has a prominence of the acromioclavicular joint, tenderness to palpation of the AC joint and also tenderness at the bicipital groove. She has discomfort with active and passive range of motion of the left shoulder, primarily at the anterolateral corner. She has mild crepitation with active and passive range of motion of the left shoulder. She has weakness with abduction, external rotation and forward elevation. Positive drop arm and positive empty can test on the left. She has pain with cross arm impingement testing, positive Mendez. She has positive Yergason's and positive Speed's. Range of motion is somewhat limited due to pain in the left compared to the right. IMAGING: Reviewed, demonstrates a left shoulder partial tear of the supraspinatus tendon with tendinopathy. She has subacromial impingement. She has obvious calcific tendinopathy, bilateral, left greater than right shoulder. She has an inferior spur on the distal acromion. She has arthropathy of the acromioclavicular joint. She has cystic change within the glenoid and the proximal humerus. Degenerative change in the glenohumeral space as well. IMPRESSION: 1. Left shoulder partial tear, supraspinatus tendon with history of previous repair by Dr. Clemente in 2000. 2. Subacromial impingement. 3. Acromioclavicular joint degenerative joint disease. 4. Degenerative changes, glenohumeral joint osteoarthritis, calcific tendinopathy, left shoulder. RECOMMENDATION: At this point, recommend physical therapy and steroid injection x1. Should the symptoms persist or worsen after steroid injection, would recommend possible revision for rotator cuff repair arthroscopically; however, since she has had an open repair previously, it may limit the ability to use an arthroscope in this case. We will consider further based upon conservative management. We will offer steroid injection in the a.m. should symptoms persist. In the interim, topical anti-inflammatories could be considered if approved by the medical service. Thank you for the opportunity to consult in the care of this patient.
--- NOTE | 2019-10-06 18:16 | History & Physical Bridge Note ---
Date of Service October 06, 2019 History & Physical Bridge Note I have examined the patient, reviewed the History & Physical and in the interval since the performance of the History & Physical I have noted the following changes of clinical significance: Recent abx with Keflex for LUE cellulitis, finished on Thursday. ALso with L lower molar tooth infection which has decreased her oral intake over past several weeks. Had been attempting to get in to see dentist. Thought partial coverage previously with keflex. No reported fever, but has had chills. No reported temp since admission. Denies chest pain, shortness of breath, but would obtain bcx if spikes temp. No hx valve replacement so will hold off on any type of ECHO at this time. Patient with reported significant weakness. States primarily located in LUE but generalized. MRI shoulder with partial vs focal full thickness tear supraspinatus. Ortho consulted -- appreciate assistance. Expect conservative management with therapy PT/OT with recommendation for inpatient rehab at discharge. CM to assist Will obtain MRI spine for foot drop, weakness Lyme to be added to labs -- possible longer standing lyme leading to progressive weakness? Pt with elevated WBC at
--- NOTE | 2019-10-06 18:36 | Hospitalist Progress Note ---
Date of Service October 06, 2019 Assessment & Plan (1) Left arm weakness: Recent abx with Keflex for LUE cellulitis, finished on Thursday. Also with L lower molar tooth infection which has decreased her oral intake over past several weeks. Had been attempting to get in to see dentist. Thought partial coverage previously with keflex. No reported fever, but has had chills. No reported temp since admission. Denies chest pain, shortness of breath, but would obtain Bcx if spikes temp. No hx valve replacement so will hold off on any type of ECHO at this time. * Left shoulder pain and weakness, limited mobility affecting ADLs. Calcific tendinosis noted on CT imaging. * EST 21 -- unlikely PMR * CK 165 * MRI LEFT shoulder with partial vs focal full thickness tear supraspinatus * Ortho consulted -- appreciate assistance * PT/OT with rec for SNF at d/c -- CM to assist * Heat to affect area. Possible benefit from steroid injection but will hold off for now * MRI spine pending for LE weakness * Lyme to be added to labs -- possible longer standing lyme leading to progressive weakness and generalized arthralgias. Pt with elevated WBC at 13K, Hgb at 16.7, Plt 355 (1 wk ago at 408). ? MDS (2) Hypothyroidism: * Chronic. Stable * TSH 1.73 * Continue Synthroid 125mcg po daily (3) HTN (hypertension): * Chronic. BP stable at 133/78 * Continue home metoprolol 25mg daily * Continue to monitor (4) Generalized weakness: * PT/OT as above * CM to assist with placement * Lyme pending (5) Fall: (6) Hypokalemia: (7) Obesity, diabetes, and hypertension syndrome: * Most recent A1c 6.9 * Not on an outpatient medications -- will address with pt in AM * (8) Arthralgia of multiple sites: * See above (9) Tooth infection: * reported infection L bottom tooth -- had been attempting to get in with dentist but not yet able. Thought partial coverage with Keflex for recent LUE cellulitis (completed course on thursday) * Will need follow up and possible cont'd abx. Pt with allergy to PCN (10) Hyperlipemia: * Most recent cholesterol September 2019 -- patient should ideally be on statin given elevated cholesterol and atherosclerosis/stenosis on imaging -- will hold off for now given generalized weakness but will need to discuss with pt in AM (11) DVT prophylaxis: * SCDs, Lovenox given limited mobility secondary to weakness Admission and Anticipated Discharge Date Admission Date: October 06, 2019 Subjective BRIDGE NOTE: NO BILL See A/P Results & Data Results & Data ([facility]) Vital Signs (Past 12 Hours) Vital Signs Temp Pulse Resp BP Pulse Ox 10/06/19 16:20 36.7 C 71 16 191/76 H 95 10/06/19 08:53 67 179/71 H 10/06/19 07:53 36.9 C 71 18 184/92 H 94 Laboratory Results 10/06/19 10/06/19 10/05/19 Range/Units 17:28 17:28 23:40 WBC 11.96 H (4.8-10.8) K/uL RBC 5.11 (4.2-5.4) M/uL Hgb 16.3 H (12.0-16.0) g/dL Hct 48.0 H (37-47) % MCV 93.9 (80-100) fL MCH 31.9 (25-34) pg MCHC 34.0 (32-36) g/dL RDW Std Deviation 46.6 H (36.4-46.3) fL RDW Coeff of Evan 13.6 (11.5-14.5) % Plt Count 307 (130-400) K/uL MPV 10.8 H (7.4-10.4) fL Immature Gran % (Auto) 0.2 % Neut % (Auto) 77.9 % Lymph % (Auto) 14.3 % [place] % (Auto) 7.4 % Eos % (Auto) 0.1 % Baso % (Auto) 0.1 % Neut # (Auto) 9.33 H (1.4-6.5) K/uL Lymph # (Auto) 1.71 (1.2-3.4) K/uL [place] # (Auto) 0.88 H (0.11-0.59) K/uL Eos # (Auto) 0.01 (0-0.5) K/uL Baso # (Auto) 0.01 (0-0.2) K/uL Immature Gran # (Auto) 0.02 (0.00-0.02) K/uL ESR (0-21) mm/hr Sodium 141 (136-145) mmol/L Potassium 3.3 L (3.5-5.1) mmol/L Chloride 106 (98-107) mmol/L Carbon Dioxide 28 (21-32) mmol/L Anion Gap 7.0 (3-11) BUN 22 H (7-18) mg/dl Creatinine 0.78 (0.6-1.2) mg/dl Est Cr Clr Drug Dosing 63.6 ml/min Est GFR ( Amer) 83.2 Est GFR (Non-Af Amer) 71.8 BUN/Creatinine Ratio 28.7 H (10-20) Glucose 180 H (70-99) mg/dl Calcium 9.3 (8.5-10.1) mg/dl Phosphorus (2.5-4.9) mg/dl Magnesium (1.8-2.4) mg/dl Total Bilirubin (0.2-1) mg/dl AST (15-37) U/L ALT (12-78) U/L Alkaline Phosphatase (45-117) U/L Total Creatine Kinase (26-192) U/L Troponin I (0-0.045) ng/ml C-Reactive Protein (0-0.29) mg/dl Total Protein (6.4-8.2) gm/dl Albumin (3.4-5.0) gm/dl Globulin (2.5-4.0) gm/dl Albumin/Globulin Ratio (0.9-2) TSH (0.300-4.500) uIu/ml Urine Color Yellow Urine Appearance Clear (Clear) Urine pH 7.0 (4.5-7.5) Ur Specific [place] 1.022 (1.000-1.030) Urine Protein Trace H (Negative) Urine Glucose (UA) Negative (Negative) Urine Ketones Trace H (Negative) Urine Blood Trace H (Negative) Urine Nitrite Negative (Negative) Urine Bilirubin Negative (Negative) Urine Urobilinogen Negative (Negative) Ur Leukocyte Esterase 1+ H (Negative) Urine WBC (Auto) 5-10 H (0-5) /hpf Urine RBC (Auto) 5-10 H (0-4) /hpf U Hyaline Cast (Auto) 5-10 H (0-5) /lpf U Epithel Cells (Auto) 5-10 H (0-5) /lpf Urine Bacteria (Auto) Negative (Negative) 10/05/19 10/05/19 10/05/19 Range/Units 22:14 22:14 22:14 WBC 13.48 H (4.8-10.8) K/uL RBC 5.16 (4.2-5.4) M/uL Hgb 16.7 H (12.0-16.0) g/dL Hct 48.5 H (37-47) % MCV 94.0 (80-100) fL MCH 32.4 (25-34) pg MCHC 34.4 (32-36) g/dL RDW Std Deviation 46.1 (36.4-46.3) fL RDW Coeff of Evan 13.5 (11.5-14.5) % Plt Count 355 (130-400) K/uL MPV 10.5 H (7.4-10.4) fL Immature Gran % (Auto) 0.2 % Neut % (Auto) 79.6 % Lymph % (Auto) 10.4 % [place] % (Auto) 9.7 % Eos % (Auto) 0.1 % Baso % (Auto) 0.0 % Neut # (Auto) 10.72 H (1.4-6.5) K/uL Lymph # (Auto) 1.40 (1.2-3.4) K/uL [place] # (Auto) 1.31 H (0.11-0.59) K/uL Eos # (Auto) 0.02 (0-0.5) K/uL Baso # (Auto) 0.00 (0-0.2) K/uL Immature Gran # (Auto) 0.03 H (0.00-0.02) K/uL ESR 21 (0-21) mm/hr Sodium 139 (136-145) mmol/L Potassium 3.0 L (3.5-5.1) mmol/L Chloride 100 (98-107) mmol/L Carbon Dioxide 35 H (21-32) mmol/L Anion Gap 4.0 (3-11) BUN 34 H (7-18) mg/dl Creatinine 1.01 (0.6-1.2) mg/dl Est Cr Clr Drug Dosing 49.7 ml/min Est GFR ( Amer) 60.9 Est GFR (Non-Af Amer) 52.5 BUN/Creatinine Ratio 33.4 H (10-20) Glucose 155 H (70-99) mg/dl Calcium 9.9 (8.5-10.1) mg/dl Phosphorus 2.7 (2.5-4.9) mg/dl Magnesium 2.4 (1.8-2.4) mg/dl Total Bilirubin 1.1 H (0.2-1) mg/dl AST 27 (15-37) U/L ALT 45 (12-78) U/L Alkaline Phosphatase 58 (45-117) U/L Total Creatine Kinase 165 (26-192) U/L Troponin I < 0.015 (0-0.045) ng/ml C-Reactive Protein < 0.29 (0-0.29) mg/dl Total Protein 7.3 (6.4-8.2) gm/dl Albumin 3.5 (3.4-5.0) gm/dl Globulin 3.8 (2.5-4.0) gm/dl Albumin/Globulin Ratio 0.9 (0.9-2) TSH 1.730 (0.300-4.500) uIu/ml Urine Color Urine Appearance (Clear) Urine pH (4.5-7.5) Ur Specific [place] (1.000-1.030) Urine Protein (Negative) Urine Glucose (UA) (Negative) Urine Ketones (Negative) Urine Blood (Negative) Urine Nitrite (Negative) Urine Bilirubin (Negative) Urine Urobilinogen (Negative) Ur Leukocyte Esterase (Negative) Urine WBC (Auto) (0-5) /hpf Urine RBC (Auto) (0-4) /hpf U Hyaline Cast (Auto) (0-5) /lpf U Epithel Cells (Auto) (0-5) /lpf Urine Bacteria (Auto) (Negative) Diagnostic Findings MRI LEFT SHOULDER IMPRESSION: 1. Mild soft tissue contusion anterior to the humeral head. 2. High-grade partial thickness tear versus focal complete tear mid and anterior aspect of the supraspinatus tendon. 3. Degenerative change of the outer cortical margin of the humeral head presumably on the basis of old trauma and/or postoperative change. 4. Generalized degenerative changes of the articular surfaces throughout. CT HEad IMPRESSION: No acute intracranial abnormality. Head CTA IMPRESSION: 1. 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 This finding was called/faxed to the nurses station at time of review. 2. No aneurysm, dissection or proximal branch occlusion. Neck CTA IMPRESSION: 1. No evidence of hemodynamically significant carotid stenosis 2. 50% diameter stenosis of the distal left vertebral artery 3. Bovine arch PG Care Time/CCT Total # of Minutes Spent Total Time Spent with Patient: Total time spent is greater than 50% in coordination of care (as documented) at patient's floor/unit and/or counseling patient: Coding Level of Care Code None Diagnoses Left arm weakness R29.898 Hypothyroidism E03.9 Hypothyroidism type: unspecified HTN (hypertension) I10 Hypertension type: essential hypertension Generalized weakness R53.1 Fall W19.XXXA Encounter type: initial encounter Hypokalemia E87.6 Obesity, diabetes, and hypertension syndrome E11.69; E11.59; E66.9; I10 Arthralgia of multiple sites M25.50 Tooth infection K04.7 Hyperlipemia E78.5 DVT prophylaxis Z29.9 (1) Hypothyroidism Hypothyroidism type: unspecified Qualified Code(s): E03.9 - Hypothyroidism, unspecified (2) HTN (hypertension) Hypertension type: essential hypertension Qualified Code(s): I10 - Essential (primary) hypertension (3) Fall Encounter type: initial encounter Qualified Code(s): W19.XXXA - Unspecified fall, initial encounter
[2019-10-06] MEDS: ENOXAPARIN INJ 40 MG/0.4 ML SYR SQ SCH (19:44)
--- NOTE | 2019-10-06 20:49 | Magnetic Resonance Report ---
MR cervical spine wo con HISTORY: Pain. Neuropathy. Trauma. b/l UE weakness TECHNIQUE: Multiplanar multisequence MRI of the cervical spine was performed without the use of contr ast. COMPARISON STUDY: None. FINDINGS: Severe degenerative disc changes throughout the entire cervical region. Signal characterist ics of the cervical cord appear unremarkable. C2-C3: No significant central canal or neural foraminal narrowing. C3-C4: Minimal broad-based central disc pole. C4-C5: Minimal broad-based disc bulge. No significant impact of the cervical cord. C5-C6: Significant osteophytic narrowing of the right neural foramina. Left neural foramina is patent . Minimal broad-based disc bulge. C6-C7: No significant central canal or neural foraminal narrowing. C7-T1: No significant central canal or neural foraminal narrowing. IMPRESSION: 1. Considerable degenerative disc changes throughout the entire cervical region. 2. No major compromise of the spinal canal. 3. Significant osteophytic narrowing right neural foramina C5-C6. ACT 112: Negative or not required by law. The above report was generated using voice recognition software. It may contain grammatical, syntax or spelling errors. Electronically signed by: Cristino Man M.D. 10/06/2019 8:48 PM
[2019-10-07] MEDS: LEVOTHYROXINE SODIUM 125 MCG TABLET PO SCH (06:01)
[2019-10-07 07:30] LABS: Basophils # (auto) 0.01 K/uL (0-0.2); Basophils % (auto) 0.1 %; Eosinophils # (auto) 0.01 K/uL (0-0.5); Eosinophils % (auto) 0.1 %; Hematocrit (blood only) 47.6 % (37-47); Hemoglobin 16.5 g/dL (12.0-16.0); Immature Granulocytes # (auto) 0.04 K/uL (0.00-0.02); Immature Granulocytes % (auto) 0.4 %; Lymphocytes # (auto) 1.24 K/uL (1.2-3.4); Lymphocytes % (auto) 11.8 %; Mean Corpuscular Hemoglobin 32.5 pg (25-34); Mean Corpuscular Hgb Conc 34.7 g/dL (32-36); Mean Corpuscular Volume 93.9 fL (80-100); Mean Platelet Volume 10.6 fL (7.4-10.4); Monocytes # (auto) 0.82 K/uL (0.11-0.59); Monocytes % (auto) 7.8 %; Neutrophils % (auto) 79.8 %; Platelet Count 282 K/uL (130-400); RDW Coefficient of Variation 13.7 % (11.5-14.5); RDW Standard Deviation 46.8 fL (36.4-46.3); Red Blood Count 5.07 M/uL (4.2-5.4); White Blood Count 10.52 K/uL (4.8-10.8)
--- NOTE | 2019-10-07 07:47 | Magnetic Resonance Report ---
MR lumbar spine wo con HISTORY: Pain. Neuropathy. b/l UE weakness TECHNIQUE: Multiplanar multisequence MRI of the lumbar spine was performed without the use of contras t. COMPARISON: None. FINDINGS: For the purpose of the report the L5-S1 disc space will be located on axial image 23 of 25. Significant degenerative disc changes throughout. Sagittal images suggest multifactorial spinal steno sis at multiple levels. No evidence for compression deformity. L1-L2: Broad-based paracentral disc herniation. Moderate multifactorial narrowing of the spinal canal . Moderate narrowing of the neural foramina bilaterally. L2-L3: Moderate multifactorial narrowing of the spinal canal. Moderate to significant narrowing of th e neural foramina bilaterally. L3-L4: Mild broad-based disc herniation. Slight grade 1 anterolisthesis of L3 on L4. Moderate multifa ctorial narrowing of the spinal canal. Mild narrowing of neuroforamina bilaterally. L4-L5: Moderate multifactorial narrowing of the spinal canal. Broad-based disc herniation. Narrowing of the right to a lesser extent left neural foramina. L5-S1: The central disc herniation. Slight posterior displacement left S1 nerve root. Significant alonso rowing of the left and to a lesser extent right neural foramina. IMPRESSION: 1. Severe degenerative disc changes throughout with moderate to significant multifactorial spinal prakash nosis throughout the entire lumbar region. 2. Narrowing of the neural foramina bilaterally at virtually all levels.. 3. No evidence for an acute compression deformity. 112: Negative or not required by law. The above report was generated using voice recognition software. It may contain grammatical, syntax or spelling errors. Electronically signed by: Cristino Man M.D. 10/07/2019 7:46 AM
--- NOTE | 2019-10-07 07:49 | Magnetic Resonance Report ---
MR thoracic spine wo con HISTORY: 79 years-old Female b/l UE weakness acute back pain status post fall with bilateral upper e xtremity weakness. COMPARISON: MRI lumbar spine of same day TECHNIQUE: Multiplanar multisequence MRI of the thoracic spine was obtained without the use of IV con trast FINDINGS: The imaged posterior fossa structures and extraskeletal thoracic structures which are imaged appear u nremarkable. Dependent bibasilar consolidation suggest probable atelectasis. Trace right pleural effu karyna. T2 hyperintense foci the bilateral kidneys are incompletely characterized on the study however favors cysts measuring up to 2.8 cm on the left. No adenopathy identified. Study is motion degraded. There is a 1.3 cm vertebral body hemangioma noted at T10. No acute fracture, subluxation, bone marrow or significant soft tissue edema. Signal within the image d cervical and thoracic spinal cord appears unremarkable. Conus medullaris terminates at the L1 inter space. There is moderate multilevel disc space narrowing and spondylitic spurring with small posterio r annular disc bulging noted at multiple levels. Posterior annular fissure at T12-L1 with probable trotter perimposed small central disc protrusion. This flattens the ventral thecal sac without significant ce ntral canal stenosis. No high-grade central canal stenosis identified. There is a least mild multilev el foraminal narrowing. T1-T2: Severe disc space narrowing with spondylitic spurring. Grade 1 anterolisthesis is likely secon neo to long-standing facet arthrosis. Circumferential annular disc bulge flattens the ventral thecal sac. No significant central canal stenosis. Moderate bilateral foraminal narrowing. T2-T3: Severe disc space narrowing with spondylitic spurring. Grade 1 anterolisthesis is likely secon neo to long-standing facet arthrosis. Circumferential annular disc bulge with disc space uncovering. Superimposed left paracentral/left lateral recess disc protrusion results in severe left lateral rec ess narrowing. Moderate central canal stenosis, AP dimension of the thecal sac measuring 7 mm. Modera te bilateral foraminal narrowing. Central canal and neuroforaminal narrowing noted within the imaged upper lumbar spine. IMPRESSION: 1. No acute fracture, subluxation or bone marrow edema. 2. Multilevel disc space narrowing with spondylitic spurring and facet arthrosis as above. 3. At T1-T2 there is severe disc space narrowing with likely degenerative grade 1 anterolisthesis and resultant moderate bilateral foraminal narrowing. 4. At T2-T3 there is severe disc space narrowing with likely degenerative grade 1 anterolisthesis and severe facet arthrosis with left paracentral/left lateral recess disc protrusion resulting in severe left lateral recess narrowing with moderate central canal and moderate bilateral foraminal narrowing . 5. Trace right pleural effusion. ACT 112: Negative or not required by law. The above report was generated using voice recognition software. It may contain grammatical, syntax o r spelling errors. Electronically signed by: Hong Cox M.D. 10/07/2019 7:48 AM
[2019-10-07 07:56] LABS: Albumin Level 2.9 gm/dl (3.4-5.0); BUN Creatinine Ratio 26.4 (10-20); Bilirubin Direct 0.2 mg/dl (0-0.2); Calcium 9.1 mg/dl (8.5-10.1); Est GFR (African American) 98.7; Est GFR (Non-African American) 85.2; Potassium 3.1 mmol/L (3.5-5.1)
[2019-10-07 07:59] LABS: Total Protein 6.8 gm/dl (6.4-8.2)
--- NOTE | 2019-10-07 08:02 | Hospitalist Progress Note ---
Date of Service October 07, 2019 Assessment & Plan (1) Left arm weakness: Recent abx with Keflex for LUE cellulitis, finished on Thursday. Also with L lower molar tooth infection which has decreased her oral intake over past several weeks. Had been attempting to get in to see dentist. Thought partial coverage previously with keflex. No reported fever, but has had chills. No reported temp since admission. Denies chest pain, shortness of breath, but would obtain Bcx if spikes temp. No hx valve replacement so will hold off on any type of ECHO at this time. * Left shoulder pain and weakness, limited mobility affecting ADLs. Calcific tendinosis noted on CT imaging. * EST 21 -- unlikely PMR * CK 165 * MRI LEFT shoulder with partial vs focal full thickness tear supraspinatus * Ortho consulted -- appreciate assistance. Possible injection suggested * PT/OT -- please continue while inpatient with rec for SNF at d/c -- CM to assist. Encompass * Heat to affect area. * MRIs as above * Ortho spine consulted -- conservative management with PT/OT. No radicular symptoms noted per note * Lyme with IgG, IgM positive, WB pending --> follow. Holding off on doxy at this time given + IgG * Adding anaplasmosis, babesiosis, peripheral smear * T 38C this afternoon --> given tylenol with repeat down to 36.3C * Blood cultures drawn -- follow * ?MDS vs progressive lyme vs other tick bourne illness * (2) Hypothyroidism: * Chronic. Stable * TSH 1.73 * Continue Synthroid 125mcg po daily (3) HTN (hypertension): * Chronic. BP significantly elevated at 198/82 -- ordered lisinopril 5mg x 1 this AM and hydralazine 10mg IV x 1 NOW. Denies any CP, SOB, decreased UO or s/sx ischemia at this time. No blurred/changes to vision at this time * Continue home metoprolol 25mg daily * Continue to monitor --> may need to consider addition of ISMAEL/ARB to current regimen given continued elevated BPs during admission and hx DM (4) Generalized weakness: * PT/OT as above -- continue while inpatient * CM to assist with placement * See above (5) Fall: (6) Hypokalemia: * K 3.1 -- orderd 40meq x 1 * Follow (7) Obesity, diabetes, and hypertension syndrome: * Most recent A1c 6.9 * Not on an outpatient medications -- should ideally be initiated on metformin at this time but patient not wanting to be on additional medication at this time (8) Arthralgia of multiple sites: * See above (9) Tooth infection: * reported infection L bottom tooth -- had been attempting to get in with dentist but not yet able. Thought partial coverage with Keflex for recent LUE cellulitis (completed course on thursday) * Will need follow up and possible cont'd abx. Pt with allergy to PCN. Denies pain while feeding lunch tray today. (10) Hyperlipemia: * Most recent cholesterol September 2019 -- patient should ideally be on statin given elevated cholesterol and atherosclerosis/stenosis on imaging -- will hold off for now given generalized weakness but will need to discuss with pt (11) DVT prophylaxis: * SCDs, Lovenox given limited mobility secondary to weakness Admission and Anticipated Discharge Date Admission Date: October 06, 2019 Subjective Patient evaluated this morning. Still with significant weakness. DIffiicult time feeding herself due to LUE weakness. Difficult as well secondary to weakness to RUE. Patient states she had chills yesterday but denies fevers/chills since that time. Episode of anxiety and sweating last night while in MRI and states she will not ever do a closed MRI in the future. States she has been using gravity sneakers/boot at home but discussed getting better fitting AFo to prevent falls. To be seen tomorrow. Still with plans to go to [facility] at discharge but still awaiting further testing to determine cause of weakness prior to discharge. Burning to eyes this morning without pain improved with saline eye drops. Denies visual changes at this time or headache. Main complaint is profound weakness and fatigue. Denies specific joint pain/arthralgia proceeding fall or known tick exposure. Denies chest pain, shortness of breath. Review of Systems Review of Systems: All systems reviewed & are unremarkable except as noted in HPI & below Physical Exam Constitutional: + ill appearing and cooperative Visible difficulty with feeding self lunch tray secondary to inability to raise right arm to mouth without dropping food Eyes: clear drainage b/l eyes no conjunctival injection noted no pain with EOM Neck: trachea midline, no thyromegaly Respiratory: normal respiratory effort, lungs clear to auscultation Cardiovascular: RRR, no murmur, no edema Gastrointestinal (Abdomen): normal bowel sounds, soft, nontender, no hepatosplenomegaly Musculoskeletal: equal strength b/l LE UE: RUE with ROM 45degrees weakness with abduction bilaterally although LUE with significant weakness 3/5 UE strength Skin: warm, dry Neurologic: patellar DTR's 2+ bilat, sensation intact and PERRL, EOMI, accommodation nl, no face palsy, no dysarthria Psychiatric: Orientation: alert, oriented x 3 and cooperative Lymphatic: no cervical or axillary lymphadenopathy Results & Data Results & Data ([facility]) Vital Signs (Past 12 Hours) Vital Signs Temp Pulse Resp BP BP Pulse Ox 10/07/19 01:12 154/80 H 162/82 H 10/07/19 00:10 37.4 C 76 18 180/75 H 93 Laboratory Results 10/07/19 10/07/19 10/07/19 Range/Units 16:41 16:41 08:13 WBC (4.8-10.8) K/uL RBC (4.2-5.4) M/uL Hgb (12.0-16.0) g/dL Hct (37-47) % MCV (80-100) fL MCH (25-34) pg MCHC (32-36) g/dL RDW Std Deviation (36.4-46.3) fL RDW Coeff of Evan (11.5-14.5) % Plt Count (130-400) K/uL MPV (7.4-10.4) fL Immature Gran % (Auto) % Neut % (Auto) % Lymph % (Auto) % [place] % (Auto) % Eos % (Auto) % Baso % (Auto) % Neut # (Auto) (1.4-6.5) K/uL Lymph # (Auto) (1.2-3.4) K/uL [place] # (Auto) (0.11-0.59) K/uL Eos # (Auto) (0-0.5) K/uL Baso # (Auto) (0-0.2) K/uL Immature Gran # (Auto) (0.00-0.02) K/uL Peripher Smr Path Cons Pending Sodium (136-145) mmol/L Potassium (3.5-5.1) mmol/L Chloride (98-107) mmol/L Carbon Dioxide (21-32) mmol/L Anion Gap (3-11) BUN (7-18) mg/dl Creatinine (0.6-1.2) mg/dl Est Cr Clr Drug Dosing ml/min Est GFR ( Amer) Est GFR (Non-Af Amer) BUN/Creatinine Ratio (10-20) Glucose (70-99) mg/dl Calcium (8.5-10.1) mg/dl Magnesium (1.8-2.4) mg/dl Total Bilirubin (0.2-1) mg/dl Direct Bilirubin (0-0.2) mg/dl AST (15-37) U/L ALT (12-78) U/L Alkaline Phosphatase (45-117) U/L Total Protein (6.4-8.2) gm/dl Albumin (3.4-5.0) gm/dl Anaplasma Smear Pending Babesia microti IgG Ab Pending Babesia microti IgM Ab Pending Babesia Interpretation Pending Lyme Disease IgG Ab (Negative) Lyme IgG (Western Blot) Pending Lyme IgG 18 kDa Band Pending Lyme IgG 23 kDa Band Pending Lyme IgG 28 kDa Band Pending Lyme IgG 30 kDa Band Pending Lyme IgG 39 kDa Band Pending Lyme IgG 41 kDa Band Pending Lyme IgG 45 kDa Band Pending Lyme IgG 58 kDa Band Pending Lyme IgG 66 kDa Band Pending Lyme IgG 93 kDa Band Pending Lyme IgM Ab (WB) Pending Lyme Disease IgM Ab (Negative) Lyme IgM 23 kDa Band Pending Lyme IgM 39 kDa Band Pending Lyme IgM 41 kDa Band Pending 10/07/19 10/07/19 10/07/19 Range/Units 08:13 07:02 07:02 WBC (4.8-10.8) K/uL RBC (4.2-5.4) M/uL Hgb (12.0-16.0) g/dL Hct (37-47) % MCV (80-100) fL MCH (25-34) pg MCHC (32-36) g/dL RDW Std Deviation (36.4-46.3) fL RDW Coeff of Evan (11.5-14.5) % Plt Count (130-400) K/uL MPV (7.4-10.4) fL Immature Gran % (Auto) % Neut % (Auto) % Lymph % (Auto) % [place] % (Auto) % Eos % (Auto) % Baso % (Auto) % Neut # (Auto) (1.4-6.5) K/uL Lymph # (Auto) (1.2-3.4) K/uL [place] # (Auto) (0.11-0.59) K/uL Eos # (Auto) (0-0.5) K/uL Baso # (Auto) (0-0.2) K/uL Immature Gran # (Auto) (0.00-0.02) K/uL Peripher Smr Path Cons Sodium 140 (136-145) mmol/L Potassium 3.1 L (3.5-5.1) mmol/L Chloride 106 (98-107) mmol/L Carbon Dioxide 28 (21-32) mmol/L Anion Gap 6.0 (3-11) BUN 17 (7-18) mg/dl Creatinine 0.62 (0.6-1.2) mg/dl Est Cr Clr Drug Dosing 80.0 ml/min Est GFR ( Amer) 98.7 Est GFR (Non-Af Amer) 85.2 BUN/Creatinine Ratio 26.4 H (10-20) Glucose 169 H (70-99) mg/dl Calcium 9.1 (8.5-10.1) mg/dl Magnesium 1.9 (1.8-2.4) mg/dl Total Bilirubin 1.0 (0.2-1) mg/dl Direct Bilirubin 0.2 (0-0.2) mg/dl AST 19 (15-37) U/L ALT 37 (12-78) U/L Alkaline Phosphatase 53 (45-117) U/L Total Protein 6.8 (6.4-8.2) gm/dl Albumin 2.9 L (3.4-5.0) gm/dl Anaplasma Smear Babesia microti IgG Ab Babesia microti IgM Ab Babesia Interpretation Lyme Disease IgG Ab Positive A (Negative) Lyme IgG (Western Blot) Lyme IgG 18 kDa Band Lyme IgG 23 kDa Band Lyme IgG 28 kDa Band Lyme IgG 30 kDa Band Lyme IgG 39 kDa Band Lyme IgG 41 kDa Band Lyme IgG 45 kDa Band Lyme IgG 58 kDa Band Lyme IgG 66 kDa Band Lyme IgG 93 kDa Band Lyme IgM Ab (WB) Lyme Disease IgM Ab Positive A (Negative) Lyme IgM 23 kDa Band Lyme IgM 39 kDa Band Lyme IgM 41 kDa Band 10/07/19 10/06/19 10/06/19 Range/Units 07:02 17:28 17:28 WBC 10.52 11.96 H (4.8-10.8) K/uL RBC 5.07 5.11 (4.2-5.4) M/uL Hgb 16.5 H 16.3 H (12.0-16.0) g/dL Hct 47.6 H 48.0 H (37-47) % MCV 93.9 93.9 (80-100) fL MCH 32.5 31.9 (25-34) pg MCHC 34.7 34.0 (32-36) g/dL RDW Std Deviation 46.8 H 46.6 H (36.4-46.3) fL RDW Coeff of Evan 13.7 13.6 (11.5-14.5) % Plt Count 282 307 (130-400) K/uL MPV 10.6 H 10.8 H (7.4-10.4) fL Immature Gran % (Auto) 0.4 0.2 % Neut % (Auto) 79.8 77.9 % Lymph % (Auto) 11.8 14.3 % [place] % (Auto) 7.8 7.4 % Eos % (Auto) 0.1 0.1 % Baso % (Auto) 0.1 0.1 % Neut # (Auto) 8.40 H 9.33 H (1.4-6.5) K/uL Lymph # (Auto) 1.24 1.71 (1.2-3.4) K/uL [place] # (Auto) 0.82 H 0.88 H (0.11-0.59) K/uL Eos # (Auto) 0.01 0.01 (0-0.5) K/uL Baso # (Auto) 0.01 0.01 (0-0.2) K/uL Immature Gran # (Auto) 0.04 H 0.02 (0.00-0.02) K/uL Peripher Smr Path Cons Sodium 141 (136-145) mmol/L Potassium 3.3 L (3.5-5.1) mmol/L Chloride 106 (98-107) mmol/L Carbon Dioxide 28 (21-32) mmol/L Anion Gap 7.0 (3-11) BUN 22 H (7-18) mg/dl Creatinine 0.78 (0.6-1.2) mg/dl Est Cr Clr Drug Dosing 63.6 ml/min Est GFR ( Amer) 83.2 Est GFR (Non-Af Amer) 71.8 BUN/Creatinine Ratio 28.7 H (10-20) Glucose 180 H (70-99) mg/dl Calcium 9.3 (8.5-10.1) mg/dl Magnesium (1.8-2.4) mg/dl Total Bilirubin (0.2-1) mg/dl Direct Bilirubin (0-0.2) mg/dl AST (15-37) U/L ALT (12-78) U/L Alkaline Phosphatase (45-117) U/L Total Protein (6.4-8.2) gm/dl Albumin (3.4-5.0) gm/dl Anaplasma Smear Babesia microti IgG Ab Babesia microti IgM Ab Babesia Interpretation Lyme Disease IgG Ab (Negative) Lyme IgG (Western Blot) Lyme IgG 18 kDa Band Lyme IgG 23 kDa Band Lyme IgG 28 kDa Band Lyme IgG 30 kDa Band Lyme IgG 39 kDa Band Lyme IgG 41 kDa Band Lyme IgG 45 kDa Band Lyme IgG 58 kDa Band Lyme IgG 66 kDa Band Lyme IgG 93 kDa Band Lyme IgM Ab (WB) Lyme Disease IgM Ab (Negative) Lyme IgM 23 kDa Band Lyme IgM 39 kDa Band Lyme IgM 41 kDa Band Diagnostic Findings MRI Cervical Spine IMPRESSION: 1. Considerable degenerative disc changes throughout the entire cervical region. 2. No major compromise of the spinal canal. 3. Significant osteophytic narrowing right neural foramina C5-C6. MRI Lumbar Spine IMPRESSION: 1. Severe degenerative disc changes throughout with moderate to significant multifactorial spinal stenosis throughout the entire lumbar region. 2. Narrowing of the neural foramina bilaterally at virtually all levels.. 3. No evidence for an acute compression deformity. MRI Thoracic Spine IMPRESSION: 1. No acute fracture, subluxation or bone marrow edema. 2. Multilevel disc space narrowing with spondylitic spurring and facet arthrosis as above. 3. At T1-T2 there is severe disc space narrowing with likely degenerative grade 1 anterolisthesis and resultant moderate bilateral foraminal narrowing. 4. At T2-T3 there is severe disc space narrowing with likely degenerative grade 1 anterolisthesis and severe facet arthrosis with left paracentral/left lateral recess disc protrusion resulting in severe left lateral recess narrowing with moderate central canal and moderate bilateral foraminal narrowing. 5. Trace right pleural effusion. PG Care Time/CCT Total # of Minutes Spent Total Time Spent with Patient: Total time spent is greater than 50% in coordination of care (as documented) at patient's floor/unit and/or counseling patient: Coding Level of Care Code 32364 Subseq Hosp Care Lvl 3 Diagnoses Left arm weakness R29.898 Hypothyroidism E03.9 Hypothyroidism type: unspecified HTN (hypertension) I10 Hypertension type: essential hypertension Generalized weakness R53.1 Fall W19.XXXA Encounter type: initial encounter Hypokalemia E87.6 Obesity, diabetes, and hypertension syndrome E11.69; E11.59; E66.9; I10 Arthralgia of multiple sites M25.50 Tooth infection K04.7 Hyperlipemia E78.5 DVT prophylaxis Z29.9 (1) Hypothyroidism Hypothyroidism type: unspecified Qualified Code(s): E03.9 - Hypothyroidism, unspecified (2) HTN (hypertension) Hypertension type: essential hypertension Qualified Code(s): I10 - Essential (primary) hypertension (3) Fall Encounter type: initial encounter Qualified Code(s): W19.XXXA - Unspecified fall, initial encounter
[2019-10-07] MEDS ORDERED: POTASSIUM CHLORIDE 20 MEQ TABCR PO STA (08:05)
[2019-10-07] MEDS ORDERED: lisinopriL 5 MG TAB PO ONE (08:10)
[2019-10-07] MEDS: NSS + 20MEQ KCL 20 MEQ/1,000 ML BAG IV SCH ×2 (08:36→20:54)
[2019-10-07] MEDS: METOPROLOL SUCC 25MG EXT REL TAB PO SCH (08:36)
[2019-10-07 09:44] LABS: Lyme Ab IgG w/WB Rflx Positive (Negative); Lyme Ab IgM w/WB Rflx Positive (Negative)
--- NOTE | 2019-10-07 10:00 | Orthopedic Consultation ---
Date of Consultation October 07, 2019 Assessment & Plan (1) Right foot drop: At this point the patient has a well-established right foot drop. She does have multilevel multifactorial spinal stenosis noted on her MRI. She does not complain of any radicular complaints or claudicant symptoms but has generalized weakness. I believe continue with physical therapy and occupational therapy is reasonable. Dr. Dye and I have reviewed the films and do not believe urgent intervention is necessary. She may follow-up as an outpatient if symptoms persist. Please contact us if you have any other questions or concerns. History of Present Illness Attending Physician: Jesse Fox MD History of Present Illness Patient is a pleasant 79-year-old female who was seen bedside in room 316. She has been having increased difficulty ambulating. Due to her difficulty she had MRIs of her cervical thoracic and lumbar spine performed. 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 She has an AFO at home which is ill fitting. She does not feel that her legs are any weaker than they had been. She is however having difficulties with ambulation. She is not having any fatimah radicular complaints. She is not complaining of any claudicant symptoms. She denies any other numbness, tingling, or paresthesias. Allergies Allergy/AdvReac Type Severity Reaction Status Date / Time Penicillins Allergy Unknown HIVES TO Verified 10/05/19 23:03 "CILLINS" Home Medications Home Medications Medication Instructions Recorded Confirmed Type Synthroid 125 mcg tablet 125 mcg PO DAILY #90 tab NS 09/26/19 10/05/19 Rx metoprolol succinate 25 mg 25 mg PO DAILY #30 tab 09/26/19 10/05/19 Rx tablet,extended release 24 hr [employer] 1 tab PO DAILY 10/05/19 10/05/19 History Probiotic & Vit B 1 tab PO DAILY 10/05/19 10/05/19 History cephalexin [Keflex] 250 mg PO TID 10/05/19 10/05/19 History Patient History Medical History Arthralgia of multiple sites (Chronic) History of hyperlipidemia HTN (hypertension) (Chronic) Hypothyroidism (Chronic) Impaired fasting glucose (Chronic) Open fracture of great toe of left foot (Resolved) Open fracture of great toe of left foot (Inactive) Surgical History History of knee replacement Hx of tonsillectomy Hx of wisdom tooth extraction S/P cholecystectomy (Inactive) Social History Smoking Status: Never smoker Hx Alcohol Use: Yes Alcohol type: wine Hx Substance Use: No Preferred Language: Turkish Communication Ability: Effective Export Manager Required: No Beliefs That Will Affect Care: None marital status: Unknown Current Living Situation: Other Current Living Situation Comment: With partner Dalia Angel current occupational status: retired Feels Safe at Home: Yes caffeine: Yes Dental Care, Regularly: No Physical Activity Frequency: Does not Exercise Seatbelt Use: always Sunscreen Use: Yes Physical Exam Physical Exam: On exam she is alert and oriented. She is seated on the side of her bed. She is nontender along the lower portion of her lumbar spine. Her lower extremity motor exam reveals no focal atrophy or strength 5 out of 5 to detailed muscle testing with exception of the anterior tibialis inverters and everters of the right foot. Sensation is intact to light touch. She has full range of motion hips and knees. Her gait was not observed. Results & Data ([facility]) Vital Signs (Past 12 Hours) Vital Signs Temp Pulse Resp BP BP Pulse Ox 10/07/19 08:50 190/90 H 10/07/19 08:15 36.7 C 71 16 205/82 H 92 10/07/19 01:12 154/80 H 162/82 H 10/07/19 00:10 37.4 C 76 18 180/75 H 93
[2019-10-07] MEDS ORDERED: DOXYCYCLINE HYCLATE 100 MG in DEXTROSE 5% 100 ML IV SCH (10:30)
[2019-10-07] MEDS: ARTIFICIAL TEARS OP OINT 3.5 GM TUBE OP PRN (13:43)
[2019-10-07] MEDS: ACETAMINOPHEN 325 MG TAB PO PRN (16:10)
[2019-10-07] MEDS ORDERED: HydrALAZINE HCL 20 MG/ML VIAL IV STA (16:13)
[2019-10-07] MEDS: ENOXAPARIN INJ 40 MG/0.4 ML SYR SQ SCH (19:42)
[2019-10-08] MEDS: LEVOTHYROXINE SODIUM 125 MCG TABLET PO SCH (05:50)
[2019-10-08] MEDS: NSS + 20MEQ KCL 20 MEQ/1,000 ML BAG IV SCH ×2 (08:17→22:21)
[2019-10-08] MEDS: METOPROLOL SUCC 25MG EXT REL TAB PO SCH (09:11)
[2019-10-08 10:20] LABS: Eosinophils # (auto) 0.02 K/uL (0-0.5); Eosinophils % (auto) 0.2 %; Hematocrit (blood only) 46.7 % (37-47); Hemoglobin 16.1 g/dL (12.0-16.0); Immature Granulocytes # (auto) 0.08 K/uL (0.00-0.02); Immature Granulocytes % (auto) 0.7 %; Lymphocytes # (auto) 1.36 K/uL (1.2-3.4); Lymphocytes % (auto) 12.1 %; Mean Corpuscular Hemoglobin 32.1 pg (25-34); Mean Corpuscular Hgb Conc 34.5 g/dL (32-36); Monocytes # (auto) 0.72 K/uL (0.11-0.59); Monocytes % (auto) 6.4 %; Neutrophils # (auto) 9.06 K/uL (1.4-6.5); Neutrophils % (auto) 80.6 %; Platelet Count 288 K/uL (130-400); RDW Coefficient of Variation 13.9 % (11.5-14.5); Red Blood Count 5.02 M/uL (4.2-5.4); White Blood Count 11.24 K/uL (4.8-10.8)
[2019-10-08 10:54] LABS: BUN Creatinine Ratio 24.5 (10-20); Calcium 8.8 mg/dl (8.5-10.1); Creatinine Clr Calc Pharmacy 69.9 ml/min; Est GFR (African American) 93.2; Est GFR (Non-African American) 80.4; Potassium 3.6 mmol/L (3.5-5.1)
[2019-10-08] MEDS: lisinopriL 5 MG TAB PO SCH (12:37)
[2019-10-08] MEDS ORDERED: DOCUSATE SODIUM 100 MG CAP PO ONE (13:21)
--- NOTE | 2019-10-08 13:29 | Hospitalist Progress Note ---
Date of Service October 08, 2019 Assessment & Plan (1) Generalized weakness: Recent abx with Keflex for LUE cellulitis, finished on Thursday. Also with L lower molar tooth infection which has decreased her oral intake over past several weeks. Had been attempting to get in to see dentist. Thought partial coverage previously with keflex. 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 * Left shoulder pain and weakness, limited mobility affecting ADLs. Calcific tendinosis noted on CT imaging. * ESR 21 -- unlikely PMR * CK 165 * MRI LEFT shoulder with partial vs focal full thickness tear supraspinatus * Ortho consulted -- appreciate assistance. Possible injection suggested * PT/OT -- please continue while inpatient with rec for SNF at d/c -- CM to assist. [facility] denied. Ref sent to [facility] pending. * Heat to affect area -- ordered K pad but pt had not received. RN to call SP and have brought up. Will also add voltaren gel topical to see if any additional relief/improvement * MRIs as above * Ortho spine consulted -- conservative management with PT/OT. No radicular symptoms noted per note * Lyme with IgG, IgM positive, WB pending --> follow. Holding off on doxy at this time given + IgG but will follow WB. * Peripheral smear without evidence for inclusion bodies. Babesiosis pending * T 38C afternoon 10/06 --> given tylenol with repeat down to 36.3C. No further fever reported * UA intially without growth, then re-incubated --> resulted with corynebacterium urealyticum -- WBC only elevated up to 11.2k so would doubt this as source. * Blood cultures drawn -- follow, NGTD * Patient with recorded Pox 74% on RA. Of note, patient denied cough, shortness of breath or sputum production during encounter.Bibasilar crackles on exam althouhg patient with difficult time doing incentive spirometer without assistance CXR obtained which showed LLL infiltrate CT chest pending --> based on results, would initiate ceftriaxone or similar. * ECHO pending to r/o IE given tooth infection/weakness/back pain (2) Left arm weakness: * See above (3) Hypothyroidism: * Chronic. Stable * TSH 1.73 * Continue Synthroid 125mcg po daily (4) HTN (hypertension): * Chronic. * BPs have been elevated -- given additional dose hydralazine 10mg IV x 1. Will order prn hydralazine to be utilized for SBP >180/DBP >100 * Added lisinopril 5mg daily (on 10/07) given DM (A1c 6.9 on most recent draw) * BP currently 136/71 after administration of hydralazine and lisinopril * Continue home metoprolol 25mg daily * VS changed to Q4h for closer monitoring * Trop 0.018, likely in setting of HTN -- repeat level pending now that BP better controlled * Continue to monitor (5) Fall: * See above (6) Hypokalemia: * K 3.1 -- ordered 40meq x 1 * Resolved -- K 3.6 * Continue to monitor (7) Obesity, diabetes, and hypertension syndrome: * Most recent A1c 6.9 * Not on an outpatient medications -- should ideally be initiated on metformin at this time but patient not wanting to be on additional medication at this time (8) Arthralgia of multiple sites: * See above (9) Tooth infection: * reported infection L bottom tooth -- had been attempting to get in with dentist but not yet able. Thought partial coverage with Keflex for recent LUE cellulitis * Will need follow up and possible cont'd abx. Pt with allergy to PCN. Denies pain while feeding lunch tray today. * Placed on clinda empirically given DM and pt states she actually only took for one day (10) Hyperlipemia: * Most recent cholesterol September 2019 -- patient should ideally be on statin given elevated cholesterol and atherosclerosis/stenosis on imaging -- will hold off for now given generalized weakness but will need to discuss with pt prior to discharge (11) DVT prophylaxis: * SCDs, Lovenox given limited mobility secondary to weakness Admission and Anticipated Discharge Date Admission Date: October 07, 2019 Subjective Patient evaluated this morning. Feeling cold, but noted thermostat in room turned all the way down. I adjusted this level. Patient states she is still having difficulty with feeding herself. I personally assisted patient in eating 100% of her lunch tray, including fruit and turkey sandwich with half glass of water. No further reported fevers. Improved strength to legs, but states she is having a friend bring in her shoes this afternoon because the socks are too slippery for her to ambulate without feeling like she is going to fall. Patient reports pain to left shoulder and states she has not had heating pad to this area as of yet. Some pain between shoulder blades this morning while up to eat. Non-reproducible on exam. Denies chest pain, shortness of breath, abdominal pain, dysuria at this time. States she had a looser stool this morning but denies that it is liquid. Review of Systems Review of Systems: All systems reviewed & are unremarkable except as noted in HPI & below Physical Exam Constitutional: + physical limitations (with feeding herself upon entry to room) and cooperative; no acute distress Eyes: + anicteric sclerae and PERRL Neck: trachea midline, no thyromegaly Respiratory: normal respiratory effort and able to speak in complete sentences; no respiratory distress Auscultation: + diminished lung sounds and + crackles (bibasilar); no wheezes Cardiovascular: RRR, no murmur, no edema Gastrointestinal (Abdomen): normal bowel sounds, soft, nontender, no hepatosplenomegaly Musculoskeletal: equal strength b/l LE with exception of R foot drop UE: RUE with ROM up to 45degrees, 4/5 strength, LUE with limited mobility/ROM and 2/5 strength weakness with abduction with ROM Skin: warm, dry Neurologic: PERRL, EOMI, accommodation nl, no face palsy, no dysarthria sensation intact Psychiatric: Orientation: alert, oriented x 3 and cooperative Lymphatic: no cervical or axillary lymphadenopathy Results & Data Results & Data ([facility]) Vital Signs (Past 12 Hours) Vital Signs Temp Pulse Resp BP Pulse Ox 10/08/19 16:50 136/71 10/08/19 15:16 36.4 C L 75 17 198/84 H 93 10/08/19 13:32 36.8 C 96 H 20 178/72 H 74 L 10/08/19 07:11 37.1 C 72 20 182/78 H 93 10/07/19 23:18 37.2 C 73 16 182/79 H 94 10/07/19 17:32 125/73 Intake and Output 10/08/19 10/08/19 10/08/19 06:59 14:59 22:59 Intake Total 910.667 / 910.667 Output Total 700 / 1875 150 / 150 Balance -700 / -421 760.667 / 760.667 Intake: IV 910.667 / 910.667 NORMAL SALINE w/20 MEQ KCL 20 910.667 / 910.667 meq In 1,000 ml @ 80 mls/hr IV .[id number] [facility] Rx#:[id number] Output: Urine Amount (Catheter) 700 / 975 150 / 150 External 700 / 975 150 / 150 Other: # Unmeasured Voids 1 Laboratory Results 10/08/19 10/08/19 10/08/19 Range/Units Unknown 09:40 09:40 WBC (4.8-10.8) K/uL RBC (4.2-5.4) M/uL Hgb (12.0-16.0) g/dL Hct (37-47) % MCV (80-100) fL MCH (25-34) pg MCHC (32-36) g/dL RDW Std Deviation (36.4-46.3) fL RDW Coeff of Evan (11.5-14.5) % Plt Count (130-400) K/uL MPV (7.4-10.4) fL Immature Gran % (Auto) % Neut % (Auto) % Lymph % (Auto) % Gallia % (Auto) % Eos % (Auto) % Baso % (Auto) % Neut # (Auto) (1.4-6.5) K/uL Lymph # (Auto) (1.2-3.4) K/uL Gallia # (Auto) (0.11-0.59) K/uL Eos # (Auto) (0-0.5) K/uL Baso # (Auto) (0-0.2) K/uL Immature Gran # (Auto) (0.00-0.02) K/uL Sodium 139 (136-145) mmol/L Potassium 3.6 D (3.5-5.1) mmol/L Chloride 109 H (98-107) mmol/L Carbon Dioxide 24 (21-32) mmol/L Anion Gap 6.0 (3-11) BUN 17 (7-18) mg/dl Creatinine 0.71 (0.6-1.2) mg/dl Est Cr Clr Drug Dosing 69.9 ml/min Est GFR ( Amer) 93.2 Est GFR (Non-Af Amer) 80.4 BUN/Creatinine Ratio 24.5 H (10-20) Glucose 201 H (70-99) mg/dl Calcium 8.8 (8.5-10.1) mg/dl Troponin I 0.018 (0-0.045) ng/ml Nasal Screen MRSA (PCR) Negative (Negative) Anaplasma Smear 10/08/19 10/07/19 Range/Units 09:40 16:41 WBC 11.24 H (4.8-10.8) K/uL RBC 5.02 (4.2-5.4) M/uL Hgb 16.1 H (12.0-16.0) g/dL Hct 46.7 (37-47) % MCV 93.0 (80-100) fL MCH 32.1 (25-34) pg MCHC 34.5 (32-36) g/dL RDW Std Deviation 47.0 H (36.4-46.3) fL RDW Coeff of Evan 13.9 (11.5-14.5) % Plt Count 288 (130-400) K/uL MPV 11.0 H (7.4-10.4) fL Immature Gran % (Auto) 0.7 % Neut % (Auto) 80.6 % Lymph % (Auto) 12.1 % Gallia % (Auto) 6.4 % Eos % (Auto) 0.2 % Baso % (Auto) 0.0 % Neut # (Auto) 9.06 H (1.4-6.5) K/uL Lymph # (Auto) 1.36 (1.2-3.4) K/uL Gallia # (Auto) 0.72 H (0.11-0.59) K/uL Eos # (Auto) 0.02 (0-0.5) K/uL Baso # (Auto) 0.00 (0-0.2) K/uL Immature Gran # (Auto) 0.08 H (0.00-0.02) K/uL Sodium (136-145) mmol/L Potassium (3.5-5.1) mmol/L Chloride (98-107) mmol/L Carbon Dioxide (21-32) mmol/L Anion Gap (3-11) BUN (7-18) mg/dl Creatinine (0.6-1.2) mg/dl Est Cr Clr Drug Dosing ml/min Est GFR ( Amer) Est GFR (Non-Af Amer) BUN/Creatinine Ratio (10-20) Glucose (70-99) mg/dl Calcium (8.5-10.1) mg/dl Troponin I (0-0.045) ng/ml Nasal Screen MRSA (PCR) (Negative) Anaplasma Smear See Comment Diagnostic Findings CXR IMPRESSION: Small parenchymal infiltrate left base. PG Care Time/CCT Total # of Minutes Spent Total Time Spent with Patient: Total time spent is greater than 50% in coordination of care (as documented) at patient's floor/unit and/or counseling patient: Coding Level of Care Code 72529 Subseq Hosp Care Lvl 3 Diagnoses Generalized weakness R53.1 Left arm weakness R29.898 Hypothyroidism E03.9 Hypothyroidism type: unspecified HTN (hypertension) I10 Hypertension type: essential hypertension Fall W19.XXXA Encounter type: initial encounter Hypokalemia E87.6 Obesity, diabetes, and hypertension syndrome E11.69; E11.59; E66.9; I10 Arthralgia of multiple sites M25.50 Tooth infection K04.7 Hyperlipemia E78.5 DVT prophylaxis Z29.9 (1) Hypothyroidism Hypothyroidism type: unspecified Qualified Code(s): E03.9 - Hypothyroidism, unspecified (2) HTN (hypertension) Hypertension type: essential hypertension Qualified Code(s): I10 - Essential (primary) hypertension (3) Fall Encounter type: initial encounter Qualified Code(s): W19.XXXA - Unspecified fall, initial encounter
[2019-10-08] MEDS ORDERED: CLINDAMYCIN HCL 150 MG CAP PO SCH (14:00)
[2019-10-08] MEDS: POLYETHYLENE (MIRALAX) 17 GM PACK PO SCH (14:19)
[2019-10-08] MEDS ORDERED: HydrALAZINE HCL 20 MG/ML VIAL IV STA ×2 (15:30→20:27)
--- NOTE | 2019-10-08 16:54 | XRay Report ---
XR chest 2V PA/lateral CLINICAL HISTORY: hypoxia dyspnea COMPARISON STUDY: 10/05/2019 FINDINGS: Small parenchymal infiltrate left base. Lungs otherwise appear clear. Diaphragms are smooth . IMPRESSION: Small parenchymal infiltrate left base. ACT 112: Negative or not required by law. The above report was generated using voice recognition software. It may contain grammatical, syntax or spelling errors. Electronically signed by: Cristino Man M.D. 10/08/2019 4:53 PM
--- NOTE | 2019-10-08 18:43 | CT Scan Report ---
CT chest wo con CT DOSE: 883.49 mGy.cm HISTORY: Dyspnea f/u LLL infiltrate on CXR, hypoxia TECHNIQUE: Multiaxial CT images of the chest were performed without contrast. A dose lowering techni que was utilized adhering to the principles of ALARA. COMPARISON: None. FINDINGS: Left basilar parenchymal infiltrate. Smaller right basilar infiltrate. Small bilateral pleu ral effusions. Mid and upper lungs are considered clear. There is atherosclerotic change and ectasia thoracic. Limited evaluation of the upper abdomen is unremarkable. IMPRESSION: 1. Left and to a lesser extent right basilar parenchymal infiltrates. 2. Very small bilateral pleural effusions. ACT 112: Negative or not required by law. The above report was generated using voice recognition software. It may contain grammatical, syntax or spelling errors. Electronically signed by: Cristino Man M.D. 10/08/2019 6:42 PM
[2019-10-08] MEDS ORDERED: cefTRIAXone SODIUM 1,000 MG in DEXTROSE 5% 50 ML IV SCH (19:00)
[2019-10-08] MEDS: cefTRIAXone SODIUM 2,000 MG in DEXTROSE 5% 50 ML IV SCH (20:03)
[2019-10-08] MEDS: ENOXAPARIN INJ 40 MG/0.4 ML SYR SQ SCH (20:10)
[2019-10-08] MEDS: DOXYCYCLINE HYCLATE 100 MG in DEXTROSE 5% 100 ML IV SCH (20:41)
[2019-10-08] MEDS: DICLOFENAC SOD 1% GEL 100 GM TUBE EXT SCH (22:59)
[2019-10-09 05:51] LABS: Eosinophils # (auto) 0.03 K/uL (0-0.5); Eosinophils % (auto) 0.2 %; Hemoglobin 14.8 g/dL (12.0-16.0); Immature Granulocytes # (auto) 0.05 K/uL (0.00-0.02); Immature Granulocytes % (auto) 0.4 %; Lymphocytes # (auto) 1.52 K/uL (1.2-3.4); Mean Corpuscular Hemoglobin 32.1 pg (25-34); Mean Corpuscular Hgb Conc 34.4 g/dL (32-36); Mean Corpuscular Volume 93.3 fL (80-100); Monocytes # (auto) 0.82 K/uL (0.11-0.59); Monocytes % (auto) 6.5 %; Neutrophils # (auto) 10.25 K/uL (1.4-6.5); Neutrophils % (auto) 80.9 %; Platelet Count 272 K/uL (130-400); RDW Coefficient of Variation 14.1 % (11.5-14.5); RDW Standard Deviation 47.9 fL (36.4-46.3); Red Blood Count 4.61 M/uL (4.2-5.4); White Blood Count 12.67 K/uL (4.8-10.8)
[2019-10-09] MEDS: DICLOFENAC SOD 1% GEL 100 GM TUBE EXT SCH ×3 (06:13→20:50)
[2019-10-09] MEDS: LEVOTHYROXINE SODIUM 125 MCG TABLET PO SCH (06:13)
[2019-10-09 06:19] LABS: BUN Creatinine Ratio 28.2 (10-20); Calcium 8.4 mg/dl (8.5-10.1); Creatinine Clr Calc Pharmacy 81.3 ml/min; Est GFR (African American) 99.2; Est GFR (Non-African American) 85.6; Potassium 3.6 mmol/L (3.5-5.1)
[2019-10-09 06:24] LABS: Troponin I 0.034 ng/ml (0-0.045)
--- NOTE | 2019-10-09 09:21 | Orthopedic Progress Note ---
Date of Service October 09, 2019 Assessment & Plan (1) Left arm weakness: Left shoulder RC tear and calcific tendinitis. Continue conservative management until can be seen as outpatient. Steroid injection questionable with active oral infection, will discuss with primary team, poss out patient f/u for injection. PT/ OT as able. Admission and Anticipated Discharge Date Admission Date: October 07, 2019 Anticipated date of discharge: 10/07/19 Subjective F/U Left shoulder pain/ weakness. Still cannot raise her arm. States this is a chronic condition for both shoulders Left worse than right. Being treated for dental infection. Diagnosed with RC tear and Calcific tendonitis. Physical Exam Physical Exam: Left UE, AROM to 20 degrees of FE. 2/5 isometric strength Fingers mobile PROM deferred. Results & Data ([facility]) Vital Signs (Past 12 Hours) Vital Signs Temp Pulse Pulse Resp BP Pulse Ox 10/09/19 07:30 36.4 C L 78 18 163/75 H 95 10/08/19 23:45 37.2 C 92 H 16 145/72 H 92
[2019-10-09] MEDS: METOPROLOL SUCC 25MG EXT REL TAB PO SCH (09:27)
[2019-10-09] MEDS: lisinopriL 5 MG TAB PO SCH (09:27)
[2019-10-09] MEDS: POLYETHYLENE (MIRALAX) 17 GM PACK PO SCH ×2 (09:27→12:28)
[2019-10-09] MEDS: DOXYCYCLINE HYCLATE 100 MG in DEXTROSE 5% 100 ML IV SCH ×2 (09:32→20:41)
--- NOTE | 2019-10-09 10:11 | Hospitalist Progress Note ---
Date of Service October 09, 2019 Assessment & Plan (1) Generalized weakness: Recent abx with Keflex for LUE cellulitis, finished on Thursday. Also with L lower molar tooth infection which has decreased her oral intake over past several weeks. Had been attempting to get in to see dentist. Thought partial coverage previously with keflex. 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 * Left shoulder pain and weakness on admission, limited mobility affecting ADLs s/p fall. Calcific tendinosis noted on CT imaging. --> Although, with generalized weakness and b/l UE weakness * ESR 21 -- unlikely PMR * CK 165 * MRI LEFT shoulder with partial vs focal full thickness tear supraspinatus * Ortho consulted -- possible injection suggested but holding off given recent dental infxn * PT/OT -- please continue while inpatient with rec for SNF at d/c -- CM to assist. [facility] denied. Ref sent to [facility] pending. * Heat to affect area -- ordered K pad but pt had not received. RN to call SP and have brought up. Voltaren gel topical to see if any additional relief/improvement * MRIs as above * Ortho spine consulted -- conservative management with PT/OT. No radicular symptoms noted per note * Peripheral smear without evidence for inclusion bodies. Babesiosis pending * T 38C afternoon 10/06 --> given Tylenol with repeat down to 36.3C. No further fever reported * UA initially without growth, then re-incubated --> resulted with corynebacterium urealyticum -- WBC only elevated up to 11.2k so would doubt this as source. * Blood cultures drawn -- follow, NGTD * ECHO pending to r/o IE given tooth infection/weakness/back pain * Initiated on Ceftriaxone and Doxy IV for pneumonia on imaging evening 10/07 ( which should also cover for possible Lyme Neuritis) * Lyme with IgG, IgM positive, WB pending --> follow. Initially holding off on doxy at this time given + IgG but will follow WB. * Neurology consulted -- appreciate assistance. Concerning with subacute onset, absent reflexes. idiopathic polyneuropathy cannot be excluded. Give MRIs of spine with stenosis at T2-T3/T1-T2 could causes issues downstream but no obv UMN signs although could be masked by a significant polyneuropathy. In either case would not explain proximal arm weakness. --> If WB comes back positive, may be a Lyme Neuritis and would be treated with Ceftriaxone IV x 28 days (initiated evening of 10/07 given pneumonia noted on and combined with doxy for atypical coverage to cover for both possibilities) and would need a PICC line. If still with significant issues after discharge, could consider EMG and nerve studies on all 4 limbs outpatient. If without improvement could consider spinal tap for further evaluation. Case was discussed with Dr Han who also spoke with Dr. Dye who has reviewed films. (2) Left arm weakness: * See above (3) Hypothyroidism: * Chronic. Stable * TSH 1.73 * Continue Synthroid 125mcg po daily (4) HTN (hypertension): * Chronic. * BPs have been elevated but are under slightly better control. Had received multiple doses of hydralazine and initiated on Lisinopril 5mg daily * Currently BP 163/75 * Continue home metoprolol 25mg -- could consider titrating this up as well if needing more BP control * VS changed to Q4h for closer monitoring * Trop slightly bumped, likely secondary to HTN --> will repeat to ensure coming down * Continue to monitor (5) Fall: * See above (6) Hypokalemia: * K 3.1 -- ordered 40meq x 1 * Continues to be stable at 3.6 (7) Obesity, diabetes, and hypertension syndrome: * Most recent A1c 6.9 * Not on an outpatient medications -- should ideally be initiated on metformin at this time but patient not wanting to be on additional medication at this time (8) Arthralgia of multiple sites: * See above (9) Tooth infection: * reported infection L bottom tooth -- had been attempting to get in with dentist but not yet able. Thought partial coverage with Keflex for recent LUE cellulitis * Will need follow up and possible cont'd abx. Pt with allergy to PCN. Denies pain while feeding lunch tray today. * Placed on clinda empirically but placed on IV abx as above that should cover (10) Hyperlipemia: * Most recent cholesterol September 2019 -- patient should ideally be on statin given elevated cholesterol and atherosclerosis/stenosis on imaging * -- will hold off for now given generalized weakness but will need to discuss with pt prior to discharge (11) Pneumonia: * Patient with recorded Pox 74% on RA. Of note, patient denied cough, shortness of breath or sputum production during encounter.Bibasilar crackles on exam although patient with difficult time doing incentive spirometer without assistance * CXR obtained which showed LLL infiltrate * CT chest with confirmation of infiltrate with small b/l effusions. Pox 95%on RA and has been using IS when able to have assistance with this * Started on Ceftriaxone, Doxy IV, continued (should also cover for Lyme as above) (12) DVT prophylaxis: * SCDs, Lovenox given limited mobility secondary to weakness Dispo: follow WB, possible need for tap if not with improvement Admission and Anticipated Discharge Date Admission Date: October 07, 2019 Subjective Patient evaluated this morning. States that yesterday when I fed her lunch was the only time she has had a complete meal. Strength about the same today. Awaiting shoes from a friend. Discussed conversation with Neurology regarding her weakness and possibility for a lyme neuritis and what that would entail as far as treatment with both the patient and son Ryan on the phone in the room during conversation. Discussed if minimal improvement we may need to consider a tap but we will await western blot and continue with current IV antibiotics at this time. Denies any further fever. Some chills. Denies chest pain, shortness of breath, abdominal pain, n/v/d/c at this time. Still with back and neck pain, discussed voltaren gel to see if any relief. Still feeling very fatigued and concerns regarding having someone help her with meals to help get her strength back. Review of Systems Review of Systems: All systems reviewed & are unremarkable except as noted in HPI & below Physical Exam Constitutional: well developed, + physical limitations (when eating) and cooperative; no acute distress Eyes: + anicteric sclerae and PERRL Respiratory: normal respiratory effort and able to speak in complete sentences; no labored breathing Auscultation: + crackles (bibasilar crackles); no wheezes Cardiovascular: RRR, no murmur, no edema Gastrointestinal (Abdomen): normal bowel sounds, soft, nontender, no hepatosplenomegaly Skin: warm, dry Neurologic: 0/5 strength of shoulders bilaterally 2-3/5 strength RUE but 2/5 on LUE with muscle testing 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) Vital Signs (Past 12 Hours) Vital Signs Temp Pulse Pulse Resp BP Pulse Ox 10/09/19 07:30 36.4 C L 78 18 163/75 H 95 10/08/19 23:45 37.2 C 92 H 16 145/72 H 92 Laboratory Results 10/09/19 10/09/19 10/09/19 Range/Units 06:42 05:13 05:13 WBC 12.67 H (4.8-10.8) K/uL RBC 4.61 (4.2-5.4) M/uL Hgb 14.8 (12.0-16.0) g/dL Hct 43.0 (37-47) % MCV 93.3 (80-100) fL MCH 32.1 (25-34) pg MCHC 34.4 (32-36) g/dL RDW Std Deviation 47.9 H (36.4-46.3) fL RDW Coeff of Evan 14.1 (11.5-14.5) % Plt Count 272 (130-400) K/uL MPV 11.0 H (7.4-10.4) fL Immature Gran % (Auto) 0.4 % Neut % (Auto) 80.9 % Lymph % (Auto) 12.0 % Ashley % (Auto) 6.5 % Eos % (Auto) 0.2 % Baso % (Auto) 0.0 % Neut # (Auto) 10.25 H (1.4-6.5) K/uL Lymph # (Auto) 1.52 (1.2-3.4) K/uL Ashley # (Auto) 0.82 H (0.11-0.59) K/uL Eos # (Auto) 0.03 (0-0.5) K/uL Baso # (Auto) 0.00 (0-0.2) K/uL Immature Gran # (Auto) 0.05 H (0.00-0.02) K/uL PT 11.0 (9.0-12.0) Seconds INR 1.0 (0.9-1.1) Sodium (136-145) mmol/L Potassium (3.5-5.1) mmol/L Chloride (98-107) mmol/L Carbon Dioxide (21-32) mmol/L Anion Gap (3-11) BUN (7-18) mg/dl Creatinine (0.6-1.2) mg/dl Est Cr Clr Drug Dosing ml/min Est GFR ( Amer) Est GFR (Non-Af Amer) BUN/Creatinine Ratio (10-20) Glucose (70-99) mg/dl Calcium (8.5-10.1) mg/dl Troponin I (0-0.045) ng/ml Random Cortisol 27.59 mcg/dl 10/09/19 10/08/19 10/08/19 Range/Units 05:13 17:05 09:40 WBC (4.8-10.8) K/uL RBC (4.2-5.4) M/uL Hgb (12.0-16.0) g/dL Hct (37-47) % MCV (80-100) fL MCH (25-34) pg MCHC (32-36) g/dL RDW Std Deviation (36.4-46.3) fL RDW Coeff of Evan (11.5-14.5) % Plt Count (130-400) K/uL MPV (7.4-10.4) fL Immature Gran % (Auto) % Neut % (Auto) % Lymph % (Auto) % Ashley % (Auto) % Eos % (Auto) % Baso % (Auto) % Neut # (Auto) (1.4-6.5) K/uL Lymph # (Auto) (1.2-3.4) K/uL Ashley # (Auto) (0.11-0.59) K/uL Eos # (Auto) (0-0.5) K/uL Baso # (Auto) (0-0.2) K/uL Immature Gran # (Auto) (0.00-0.02) K/uL PT (9.0-12.0) Seconds INR (0.9-1.1) Sodium 144 (136-145) mmol/L Potassium 3.6 (3.5-5.1) mmol/L Chloride 113 H (98-107) mmol/L Carbon Dioxide 25 (21-32) mmol/L Anion Gap 6.0 (3-11) BUN 17 (7-18) mg/dl Creatinine 0.61 (0.6-1.2) mg/dl Est Cr Clr Drug Dosing 81.3 ml/min Est GFR ( Amer) 99.2 Est GFR (Non-Af Amer) 85.6 BUN/Creatinine Ratio 28.2 H (10-20) Glucose 159 H (70-99) mg/dl Calcium 8.4 L (8.5-10.1) mg/dl Troponin I 0.034 0.018 0.018 (0-0.045) ng/ml Random Cortisol mcg/dl Diagnostic Findings CXR IMPRESSION: Small parenchymal infiltrate left base. CT Chest IMPRESSION: 1. Left and to a lesser extent right basilar parenchymal infiltrates. 2. Very small bilateral pleural effusions. PG Care Time/CCT Total # of Minutes Spent Total Time Spent with Patient: Total time spent is greater than 50% in coordination of care (as documented) at patient's floor/unit and/or counseling patient: Coding Level of Care Code 84958 Subseq Hosp Care Lvl 3 Diagnoses Generalized weakness R53.1 Left arm weakness R29.898 Hypothyroidism E03.9 Hypothyroidism type: unspecified HTN (hypertension) I10 Hypertension type: essential hypertension Fall W19.XXXA Encounter type: initial encounter Hypokalemia E87.6 Obesity, diabetes, and hypertension syndrome E11.69; E11.59; E66.9; I10 Arthralgia of multiple sites M25.50 Tooth infection K04.7 Hyperlipemia E78.5 Pneumonia J18.9 DVT prophylaxis Z29.9 (1) Hypothyroidism Hypothyroidism type: unspecified Qualified Code(s): E03.9 - Hypothyroidism, unspecified (2) HTN (hypertension) Hypertension type: essential hypertension Qualified Code(s): I10 - Essential (primary) hypertension (3) Fall Encounter type: initial encounter Qualified Code(s): W19.XXXA - Unspecified fall, initial encounter
--- NOTE | 2019-10-09 10:14 | Neurology Consultation ---
Date of Consultation October 09, 2019 Assessment & Plan (1) Generalized weakness: (2) Left arm weakness: (3) Right foot drop: (4) Lumbar spinal stenosis: (5) Thoracic spinal stenosis: (6) Idiopathic polyneuropathy: This patient has the subacute (1 month) onset of weakness in all 4 limbs, left arm greater than the right , and arms greater than the legs. the weakness pattern is more proximal than distal. CK and sed rate were normal. This started as a presumed cellulitis in the left upper extremity helped with Keflex. It has progressed despite improvement of the left upper extremity swelling and there is a positive IgG and IgM Lyme screening test. Western blot is pending. she was initiated on IV ceftriaxone and doxycycline last evening. With the absent reflexes an underlying idiopathic polyneuropathy cannot be excluded although there is not much in the way of sensory deficit on exam. MRIs of the spine revealed some significant stenosis at T2-3 and T1-2 as well as diffusely in the lumbar spine. This type of spinal stenosis could cause issues from that level down, however, there are no obvious upper motor neuron signs. Upper motor neuron signs , however, could be masked by a significant polyneuropathy. in addition the upper thoracic spinal stenosis does not explain the proximal arm weakness bilaterally. The patient has no meningeal signs or encephalopathy. The patient has an old (43 years) right foot drop stemming from her lumbar spine disease. This is stable. 1. Continue IV Rocephin and doxycycline. If the Western blot is positive for IgM Lyme, I would recommend 1 month IV Rocephin via a PICC line 2. Awaiting Western blot results. 3. PT and OT for strengthening and better use of hands for activities of daily living 4. have dietary assess her food likes and dislikes. 5. if she is not improving ( or worsens ) in the next couple of days I would consider CT scan of the head and LP. Overall, I spent a total of 105 minutes this case including review of records, review of MRI films, direct evaluation the patient at bedside, and discussion of the case with the patient and RN at bedside, Dr. [facility], and Edel Lebron PA-C, including differential diagnosis and treatment options. History of Present Illness Reason for Consultation: Patient is an 79-year-old, who I was asked to see at the request of Edel Lebron PA-C, for neurologic consultation regarding weakness Requesting Physician: Edel Lebron PA-C Attending Physician: Jesse Fox MD History of Present Illness patient tells me that she had lumbar spine problems in the past and about 43 years ago she ended up having right foot weakness from this. Because she was a single parent at the time, she elected not to undergo lumbar surgery but treated her right leg weakness conservatively. She had that up having a permanent right foot drop. She has had some mild hypertension and diabetes for several years as well as some dyslipidemia hypothyroidism. In 2000 she had a fall, tripping while pulling a sled full of wood and carrying wood in the other arm, ending up dislocating her left shoulder. Dr. Clemente repaired the supraspinatus tendon and she did well with her left shoulder and arm since. Patient has diffuse osteoarthritis in the joints and is post total knee replacement bilaterally. however, in the half 2019, she was doing very well being active with no significant weakness, pain, or numbness in her limbs (other than the old right foot drop). In early September she stuck her finger with a metal bristle cleaning something outdoors by September 08 she started having pain and swelling in her left elbow area and this spread up to the shoulder and down the arm. She does not remember any cut at the elbow and never had any new joint pains or rashes. she did, however, within a few days of the onset of the left arm swelling, start having left arm weakness centered around the shoulder upper arms. Within a few days she noted some right shoulder weakness which was never quite as bad as the left. She did not have new neck pain. On September 16 she received Keflex 4 times a day and this decrease the pain and swelling of the left arm. However, the weakness in the left and right upper extremities continued to progress (always left more than right). on September 25, she saw her PCP who felt that the cellulitis was getting somewhat better but noted pain and weakness in the left shoulder as well as some neck pain. On October 04, patient slipped and fell in the bathroom catching herself injuring her left upper extremity. She arrived to the emergency and had a temperature of 37.0, pulse 72 and regular, blood pressure 203/89, and O2 saturation 95 percent. Exam was noted for 2/5 strength in the left upper extremity and 3/5 strength in the right upper extremity. CBC showed a elevated white count of 30.48 and the sed rate was 21. Glucose was 155 otherwise Chem profile was unremarkable. CK was 165 and TSH was 1.73. Urinalysis was unremarkable. Blood cultures have shown no growth after 24 hours. She has positive Lyme screening test for both IgM and IgG but Western blot is pending. Anaplasmosis screen was negative. MRI of the left shoulder showed partial supraspinatus tear and osteoarthritis. MRI of the cervical spine showed significant degenerative changes of disc and bone with some multiple levels of very mild stenosis but no cord impingement. MRI of the thoracic spine showed a significant /moderate spinal stenosis at T2-3 and to a lesser degree at T1-2. This was from disc and bone. MRI of the lumbar spine showed severe diffuse spinal stenosis from disc and bone. the patient denies spine pain or new balance issues. She has some incontinence of urine since 2003 but this is unchanged. She has an infected left lower 2 which has not been removed yet. Her energy level is decreased since this has all started in September. Blood pressure today is 163/75. Allergies Allergy/AdvReac Type Severity Reaction Status Date / Time Penicillins Allergy Unknown HIVES TO Verified 10/05/19 23:03 "CILLINS" Home Medications Home Medications Medication Instructions Recorded Confirmed Type Synthroid 125 mcg tablet 125 mcg PO DAILY #90 tab NS 09/26/19 10/05/19 Rx metoprolol succinate 25 mg 25 mg PO DAILY #30 tab 09/26/19 10/05/19 Rx tablet,extended release 24 hr All Day Energy 1 tab PO DAILY 10/05/19 10/05/19 History Probiotic & Vit B 1 tab PO DAILY 10/05/19 10/05/19 History cephalexin [Keflex] 250 mg PO TID 10/05/19 10/05/19 History Patient History Medical History Arthralgia of multiple sites (Chronic) History of hyperlipidemia HTN (hypertension) (Chronic) Hypothyroidism (Chronic) Impaired fasting glucose (Chronic) Open fracture of great toe of left foot (Resolved) Open fracture of great toe of left foot (Inactive) Surgical History History of knee replacement Hx of tonsillectomy Hx of wisdom tooth extraction S/P cholecystectomy (Inactive) Family History Grandfather (Paternal) Myocardial infarction Father , age 73 of a stroke Stroke Mother , age 87 of renal disease Kidney disease Denies family history of Ovarian cancer Prostate cancer Breast cancer Colorectal cancer Social History Smoking Status: Never smoker Hx Alcohol Use: Yes Alcohol type: wine Alcohol Intake Frequency Comment: very rare, 2 or 3 times per year Hx Substance Use: No Preferred Language: Italian Communication Ability: Effective Panel 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 Required: No Beliefs That Will Affect Care: None marital status: Unknown Current Living Situation: Other Current Living Situation Comment: With partner Dalia Angel 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 Other Information That Helps Us Care for You: No Feels Safe at Home: Yes Safety Concerns: Feels Safe At This Time caffeine: Yes Dental Care, Regularly: No Physical Activity Frequency: Does not Exercise Seatbelt Use: always Sunscreen Use: Yes Review of Systems Constitutional: + fatigue and + weakness; no fever Eyes: no diplopia, no eye pain and no worsening vision Ear, Nose, Mouth, Throat: no ear pain, no tinnitus, no hearing loss, no dizziness, no hoarseness and no dysphagia Respiratory: no cough and no dyspnea Cardiovascular: no chest pain, no palpitations and no lightheadedness Gastrointestinal: no abdominal pain, no nausea and no vomiting Genitourinary: no dysuria, no urinary frequency and no urinary incontinence Musculoskeletal: + back pain, + neck pain and + joint pain; no radicular pain and no myalgia Integumentary: no rash and no lesions Neurologic: + localized weakness and + generalized weakness; no gait abnormality, no tingling, no numbness, no tremor(s), no abnormal movements, no headache(s), no abnormal speech, no confusion and no memory loss Psychiatric: no depression, no irritability, no anxiety, no difficulty concentrating, no confusion and no hallucinations Endocrine: + fatigue; no flushing Hematologic / Lymphatic: no easy bleeding and no easy bruising Allergy / Immunological: no urticaria and no problem reported Exam (Neuro) Physical Exam: The patient is right-handed. The patient is awake, alert, and attentive. Speech is normal without any aphasia or dysarthria. She can name objects, repeat phrases, and has normal spontaneous speech. Mentation and thought processes are intact, with orientation to person, place and time, and normal fund of knowledge. Attention and concentration are normal. Mood and affect are normal and appropriate. General appearance and grooming are normal. Short and long-term memory are intact. Pupils are 4 mm bilaterally and reactive to light. Extraocular eye muscles are intact without nystagmus. Visual acuity and visual velazquez seem normal grossly to confrontation. There are no deficits to sensation in the face in all 3 distributions of the fifth cranial nerve bilaterally. Corneal reflexes are positive bilaterally. Facial strength and symmetry was normal bilaterally. Hearing seems normal to whisper and finger rub bilaterally. Palate moves well without asymmetry. There is normal sternocleidomastoid and trapezius (shoulder shrug) strength bilaterally. Tongue is midline with good strength bilaterally. Neck has a full range of motion without discomfort. Cervical, thoracic, and lumbar spine are nontender to palpation. Gait is not tested and stance sitting up in bed on her own is quite poor. Patient is very weak and cannot out stretch her arms. There are no resting, postural, or action tremors. It is very difficult for her to reach her nose with her finger but she does not have any obvious ataxia or tremor.. There is good facility in the hands. No other abnormal involuntary movements are noted. Motor strength is 0/5 at the shoulders bilaterally. Biceps and triceps is 3/5 on the right and 2/5 on the left. Rpg Programmer and intrinsic hand muscles seem closer to 4-/ 5 bilaterally. Hip flexor and quadriceps strength is 4/5 bilaterally. This would also include hip abduction and abduction. Tibialis anterior is 0/5 on the right and 5/5 on the left. There is 1/5 toe movement on the right and it is 5/5 on the left. The limbs have some decreased tone in the arms. tone in the legs is recent. There is no atrophy noted in the muscles. Muscle bulk is normal, there is no tenderness to palpation, no myotonia to percussion, and no fasciculations seen. Sensory examination is intact to touch and pin throughout all 4 limbs diffusely. Reflexes are 0/4 in the biceps, triceps, brachioradialis, quadriceps, and Achil les tendons bilaterally. There is no clonus bilaterally. Toes are downgoing with plantar stimulation bilaterally. Peripheral pulses are present and of normal quality distally in all 4 limbs. There is no peripheral edema noted in the limbs. Results & Data ([facility]) Vital Signs (Past 12 Hours) Vital Signs Temp Pulse Pulse Resp BP Pulse Ox 10/09/19 07:30 36.4 C L 78 18 163/75 H 95 10/08/19 23:45 37.2 C 92 H 16 145/72 H 92 PG Care Time/CCT Total # of Minutes Spent Total Time Spent with Patient: Total time spent is greater than 50% in coordination of care (as documented) at patient's floor/unit and/or counseling patient: Coding Level of Care Code 89753 Initial Inpt Care Lvl 3 Diagnoses Generalized weakness R53.1 Left arm weakness R29.898 Right foot drop M21.371 Lumbar spinal stenosis M48.061 Thoracic spinal stenosis M48.04 Idiopathic polyneuropathy G60.9 Time Spent (min) 105 Comment Add [id number] the [id number]
[2019-10-09] MEDS: NSS + 20MEQ KCL 20 MEQ/1,000 ML BAG IV SCH (12:28)
[2019-10-09] MEDS ORDERED: METOPROLOL TARTRATE 25 MG TAB PO STA (15:58)
[2019-10-09] MEDS: cefTRIAXone SODIUM 2,000 MG in DEXTROSE 5% 50 ML IV SCH (20:41)
[2019-10-09] MEDS: ENOXAPARIN INJ 40 MG/0.4 ML SYR SQ SCH (20:47)
[2019-10-10] MEDS: HydrALAZINE HCL 20 MG/ML VIAL IV PRN ×2 (00:17→07:11)
[2019-10-10] MEDS: NSS + 20MEQ KCL 20 MEQ/1,000 ML BAG IV SCH ×2 (01:34→12:49)
[2019-10-10] MEDS: ACETAMINOPHEN 325 MG TAB PO PRN (01:38)
[2019-10-10] MEDS: DICLOFENAC SOD 1% GEL 100 GM TUBE EXT SCH ×3 (06:20→22:54)
[2019-10-10] MEDS: LEVOTHYROXINE SODIUM 125 MCG TABLET PO SCH (06:21)
[2019-10-10] MEDS: DOXYCYCLINE HYCLATE 100 MG in DEXTROSE 5% 100 ML IV SCH ×2 (06:22→20:43)
[2019-10-10 06:24] LABS: Basophils # (auto) 0.01 K/uL (0-0.2); Basophils % (auto) 0.1 %; Eosinophils # (auto) 0.23 K/uL (0-0.5); Eosinophils % (auto) 3.2 %; Hematocrit (blood only) 44.3 % (37-47); Hemoglobin 15.4 g/dL (12.0-16.0); Immature Granulocytes # (auto) 0.06 K/uL (0.00-0.02); Immature Granulocytes % (auto) 0.8 %; Lymphocytes # (auto) 1.49 K/uL (1.2-3.4); Lymphocytes % (auto) 20.6 %; Mean Corpuscular Hemoglobin 32.1 pg (25-34); Mean Corpuscular Hgb Conc 34.8 g/dL (32-36); Mean Corpuscular Volume 92.3 fL (80-100); Monocytes # (auto) 0.59 K/uL (0.11-0.59); Monocytes % (auto) 8.1 %; Neutrophils # (auto) 4.87 K/uL (1.4-6.5); Neutrophils % (auto) 67.2 %; Platelet Count 255 K/uL (130-400); RDW Coefficient of Variation 13.8 % (11.5-14.5); RDW Standard Deviation 46.8 fL (36.4-46.3); White Blood Count 7.25 K/uL (4.8-10.8)
[2019-10-10 06:52] LABS: Albumin Level 2.6 gm/dl (3.4-5.0); BUN Creatinine Ratio 29.9 (10-20); Calcium 8.8 mg/dl (8.5-10.1); Creatinine Clr Calc Pharmacy 90.2 ml/min; Est GFR (African American) 102.7; Est GFR (Non-African American) 88.6; Magnesium 1.7 mg/dl (1.8-2.4); Potassium 3.4 mmol/L (3.5-5.1)
[2019-10-10 06:55] LABS: Albumin Globulin Ratio 0.7 (0.9-2); Bilirubin,Total 0.6 mg/dl (0.2-1); Globulin 3.5 gm/dl (2.5-4.0); Total Protein 6.1 gm/dl (6.4-8.2)
[2019-10-10] MEDS ORDERED: POTASSIUM CHLORIDE 20 MEQ TABCR PO STA (09:14)
[2019-10-10] MEDS: lisinopriL 5 MG TAB PO SCH (10:15)
[2019-10-10] MEDS: METOPROLOL SUCC 50MG EXT REL TAB PO SCH (10:15)
[2019-10-10] MEDS: POLYETHYLENE (MIRALAX) 17 GM PACK PO SCH (10:16)
--- NOTE | 2019-10-10 13:17 | XCELERA ---
[id number]___[id number]
--- NOTE | 2019-10-10 13:45 | Neurology Progress Note ---
Date of Service October 10, 2019 Assessment & Plan (1) Generalized weakness: Colleen Sanchez is an 79 yo woman w/ PMH of hypertension, prediabetes, hypothyroidism, anxiety, obesity, chronic right foot drop and recent tooth infection who presents to [facility] with subacute proximal weakness, worse on the left than the right, that has progressed over the last month. #Generalized weakness: c/f possible new onset myasthenia gravis given bilateral ptosis and generalized weakness vs possible GBS vs possible West Nile virus infection, most likely brainstem stroke or encephalitis. -Recommend obtaining LP with glucose, protein, cell counts, CSF bio fire panel and West Nile virus PCR -Lyme titer appears to be age-indeterminate infection since both IgG and IgM are positive and newer studies show that Lyme infection can keep the titers positive for up to 20 years -Would obtain MRI brain without contrast to rule out stroke or encephalitis -Would send for myasthenia antibodies as well (will order for you) -Agree with outpatient EMG if no other cause found #Possible delirium: She seemed a bit delirious this afternoon when talking with her. Would do standard delirium precautions with lights on during day, lights off at night, frequent reorientation and avoidance of benzos/opiates as able to. Thank you for this interesting consult. Plan of care discussed with primary team. Please call or text with questions. (2) Thoracic spinal stenosis: (3) Lumbar spinal stenosis: Admission and Anticipated Discharge Date Admission Date: October 07, 2019 Anticipated date of discharge: 10/07/19 Subjective NAEs overnight. She was intermittently inattentive this afternoon, and would start to fall asleep at times. She reports that her face feels weak, she has pain in bilateral shoulders and feels weaker on the left than the right side. She does have a left facial droop that was not noticed previously in the documentation. She reports having a several year history of significant neuropathy that extends from her feet up to her knees. Review of Systems Review of Systems: 14 point review of systems completed and negative except as in HPI. Results & Data ([facility]) Vital Signs (Past 12 Hours) Vital Signs Temp Pulse Pulse Resp BP Pulse Ox 10/10/19 10:13 81 159/74 H 10/10/19 08:02 36.6 C 66 16 206/82 H 94 10/10/19 07:41 183/72 H 10/10/19 07:05 206/82 H 10/10/19 04:58 37.4 C 77 12 184/88 H 95 Exam (Neuro) Physical Exam: General Exam: GEN: NAD, sitting in chair. HEENT: No conjunctival injection, no rhinorrhea. CV: RRR, no peripheral edema PULM: Nonlabored respirations on room air. Neuro Exam: MS: Drowsy, required frequent stimulation to stay awake. Oriented to person, place, and month/year. Speech fluent and appropriate with mild dysarthria, no paraphasic errors. Language intact including naming, comprehension, repetition. Cognition and memory grossly intact. Inattentive. No neglect. CN: Visual velazquez full. No extinction to double simultaneous stimuli. No optic disc edema on fundoscopic exam. PERRLA OU. EOMI without nystagmus. Facial sensation intact to LT. Left facial droop. Hearing intact to conversation. Uvula midline with symmetric palatal elevation. Shoulder shrug normal. Tongue midline. Bilateral ptosis noted with diplopia on extended upgaze. Unable to elevate head from bed. MOTOR: Normal bulk, decreased tone in BUEs. Unable to assess pronator drift due BUE weakness. BUE strength 1/5 at deltoids, 3/5 R biceps, 2/5 L biceps, 2/5 bilateral triceps, and 4/5 hand grasp bilaterally. BLE strength 4/5 at R iliopsoas, 4-/5 L iliopsoas, 4/5 bilateral hamstrings, 4/5 bilateral quadriceps, 5/5 L tibialis anterior, 0/5 R tibialis anterior, and 5/5 gastrocnemius bilaterally. REFLEXES: Trace at biceps, triceps, brachioradialis, absent patella and absent Achilles bilaterally. Flexor plantar responses bilaterally. SENSORY: Intact to LT without extinction to double simultaneous stimuli. Vibration intact in BUEs, absent in BLEs up to the knees. COORDINATION: No dysmetria or ataxia on [id number] bilaterally. Normal Regi bilaterally. GAIT: deferred given weakness/fall risk PG Care Time/CCT Total # of Minutes Spent Total Time Spent with Patient: Total time spent is greater than 50% in coordination of care (as documented) at patient's floor/unit and/or counseling patient: Coding Level of Care Code 80932 Subseq Hosp Care Lvl 3 Diagnoses Generalized weakness R53.1 Thoracic spinal stenosis M48.04 Lumbar spinal stenosis M48.061
[2019-10-10 14:38] LABS: 18KDIGG Band REACTIVE; 23KDIGG Band REACTIVE; 23KDIGM Band REACTIVE; 28KDIGG Band NON-REACTIVE; 30KDIGG Band NON-REACTIVE; 39KDIGG Band NON-REACTIVE; 39KDIGM Band REACTIVE; 41KDIGG Band REACTIVE; 41KDIGM Band REACTIVE; 45KDIGG Band NON-REACTIVE; 58KDIGG Band NON-REACTIVE; 66KDIGG Band NON-REACTIVE; 93KDIGG Band REACTIVE; Lyme Antibodies, WB IgG NEGATIVE (NEGATIVE); Lyme Antibodies, WB IgM POSITIVE (NEGATIVE)
--- NOTE | 2019-10-10 17:43 | Hospitalist Progress Note ---
Date of Service October 10, 2019 Assessment & Plan (1) Generalized weakness: Recent abx with Keflex for LUE cellulitis, finished on Thursday. Also with L lower molar tooth infection which has decreased her oral intake over past several weeks. Had been attempting to get in to see dentist. Thought partial coverage previously with keflex. 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 * Left shoulder pain and weakness on admission, limited mobility affecting ADLs s/p fall. Calcific tendinosis noted on CT imaging. --> Although, with generalized weakness and b/l UE weakness * ESR 21 -- unlikely PMR * CK 165 * MRI LEFT shoulder with partial vs focal full thickness tear supraspinatus * Ortho consulted -- possible injection suggested but holding off given recent dental infxn * PT/OT -- please continue while inpatient with rec for SNF at d/c -- CM to assist. [facility] denied. Ref sent to [facility] pending. * Heat to affect area Voltaren gel topical to see if any additional relief/improvement * MRIs as above * Ortho spine consulted -- conservative management with PT/OT. No radicular symptoms noted per note * Peripheral smear without evidence for inclusion bodies. Babesiosis pending * UA initially without growth, then re-incubated --> resulted with corynebacterium urealyticum -- WBC only elevated up to 11.2k so would doubt this as source. * Blood cultures NGTD * ECHO without vegetation but cannot exclude defnitively, normal EF * Initiated on Ceftriaxone and Doxy IV for pneumonia on imaging evening 10/07 (which should also cover for possible Lyme Neuritis) * Lyme with IgG, IgM positive, WB pending --> follow. Initially holding off on doxy at this time given + IgG but will follow WB. * Neurology consulted -- appreciate assistance. Concern for new onset myasthenia gravis vs west nile vs brain stem stroke vs GBS --> WB with 3 reactive IGM bands and 3 reactive IGg bands - possible Lyme Neuritis and would be treated with Ceftriaxone IV x 28 days (initiated evening of 8 given pneumonia noted on and combined with doxy for atypical coverage to cover for both possibilities) and would need a PICC line. If still with significant issues after discharge, could consider EMG and nerve studies on all 4 limbs outpatient. Patient will have LP tomorrow as well as MRI brain per neurology. (2) Left arm weakness: * See above (3) Hypothyroidism: * Chronic. Stable * TSH 1.73 * Continue Synthroid 125mcg po daily (4) HTN (hypertension): * Chronic. * BPs have been elevated - will increase lisinopril to 10mg * Continue prn hydralazine * SBP running 150s to 180s systolically * Continue home metoprolol 25mg -- could consider titrating this up as well if needing more BP control * VS changed to Q4h for closer monitoring * Trop normal x 3, no complaints of chest pain or sob. (5) Fall: * See above (6) Hypokalemia: * K 3.4 -- ordered 40meq x 1, replaced mag as well with 1g IV * bmp am (7) Obesity, diabetes, and hypertension syndrome: * Most recent A1c 6.9 * Not on an outpatient medications -- should ideally be initiated on metformin but patient not wanting to be on additional medication at this time (8) Arthralgia of multiple sites: * See above (9) Tooth infection: * reported infection L bottom tooth -- had been attempting to get in with dentist but not yet able. Thought partial coverage with Keflex for recent LUE cellulitis * Will need follow up and possible cont'd abx. No pain with eating * continue ceftriaxone (10) Hyperlipemia: * Most recent cholesterol September 2019 -- patient should ideally be on statin given elevated cholesterol and atherosclerosis/stenosis on imaging * -- will hold off for now given generalized weakness but will need to discuss with pt prior to discharge (11) Pneumonia: * Patient with recorded Pox 74% on RA. O * CXR showed LLL infiltrate * CT chest with confirmation of infiltrate with small b/l effusions. * Continue IS * Continue Ceftriaxone, Doxy IV (12) DVT prophylaxis: * SCDs, Lovenox - held for LP am Dispo: continued hospital stay, LP am Admission and Anticipated Discharge Date Admission Date: October 07, 2019 Subjective Ms. Sanchez continues to have significant weakness. She is requiring max assistance from 2 nurses to get to the [facility]. She cannot lift her arms or legs. ROS Constitutional: no chills, aches, sweats or fever Respiratory: no sob,cough, sputum, or wheezing Cardiac: no chest pain, palpitations, edema, orthopnea or lightheadedness GI: no abdominal pain, nausea, vomiting, diarrhea or constipation : no dysuria or hesitancy Extremities: no joint pain or weakness Skin: no rash All other systems reviewed and negative Physical Exam Physical Exam: General: no distress Eyes: normal inspection, PERLL Respiratory: chest non tender, clear to auscultation, normal breath sounds, no respiratory distress, no accessory muscle use Cardiac: regular rate and rhythm, no rub or gallop, no murmur, no edema, no jvd GI/: active bowel sounds, no abd pain or tenderness, soft, non distended Extremities: normal range of motion, normal strength, non tender Neuro/Psych: alert and oriented x 3, normal mood and affect, generalized weakness Skin: normal color, dry Results & Data Results & Data ([facility]) Vital Signs (Past 12 Hours) Vital Signs Temp Pulse Pulse Resp BP Pulse Ox 10/10/19 15:02 36.4 C L 78 20 186/82 H 94 10/10/19 10:13 81 159/74 H 10/10/19 08:02 36.6 C 66 16 206/82 H 94 10/10/19 07:41 183/72 H 10/10/19 07:05 206/82 H PG Care Time/CCT Total # of Minutes Spent Total Time Spent with Patient: Total time spent is greater than 50% in coordination of care (as documented) at patient's floor/unit and/or counseling patient: Coding Level of Care Code 11647 Subseq Hosp Care Lvl 3 Diagnoses Generalized weakness R53.1 Left arm weakness R29.898 Hypothyroidism E03.9 Hypothyroidism type: unspecified HTN (hypertension) I10 Hypertension type: essential hypertension Fall W19.XXXA Encounter type: initial encounter Hypokalemia E87.6 Obesity, diabetes, and hypertension syndrome E11.69; E11.59; E66.9; I10 Arthralgia of multiple sites M25.50 Tooth infection K04.7 Hyperlipemia E78.5 Pneumonia J18.9 DVT prophylaxis Z29.9 (1) Hypothyroidism Hypothyroidism type: unspecified Qualified Code(s): E03.9 - Hypothyroidism, unspecified (2) HTN (hypertension) Hypertension type: essential hypertension Qualified Code(s): I10 - Essential (primary) hypertension (3) Fall Encounter type: initial encounter Qualified Code(s): W19.XXXA - Unspecified fall, initial encounter
[2019-10-10] MEDS ORDERED: MAGNESIUM SULFATE / D5W 1 GM/100 ML BAG IV ONE (18:15)
[2019-10-10] MEDS: cefTRIAXone SODIUM 2,000 MG in DEXTROSE 5% 50 ML IV SCH (19:13)
[2019-10-11] MEDS: HydrALAZINE HCL 20 MG/ML VIAL IV PRN ×2 (00:37→12:32)
[2019-10-11] MEDS: NSS + 20MEQ KCL 20 MEQ/1,000 ML BAG IV SCH ×3 (02:13→14:41)
[2019-10-11] MEDS: DOXYCYCLINE HYCLATE 100 MG in DEXTROSE 5% 100 ML IV SCH (06:42)
[2019-10-11] MEDS: DICLOFENAC SOD 1% GEL 100 GM TUBE EXT SCH ×3 (06:43→21:49)
[2019-10-11] MEDS: LEVOTHYROXINE SODIUM 125 MCG TABLET PO SCH (06:44)
--- NOTE | 2019-10-11 06:44 | Magnetic Resonance Report ---
MR brain wo con HISTORY: Mental status change r/o brainstem stroke or encephalitis TECHNIQUE: Multiplanar multisequence MRI of the brain was performed without the use of contrast. COMPARISON STUDY: None. FINDINGS: There are no areas of restricted diffusion to suggest acute infarction. The midline structu res are intact. The paranasal sinuses are clear. The mastoid air cells are clear. The ventricles and sulci are within normal limits for age. There is no mass, hematoma, midline shift. The major vascular flow-voids at the skull base are well maintained. Age-related atrophy and chronic small vessel dickerson e IMPRESSION: No acute intracranial abnormality. Age-related atrophy and chronic small vessel change ACT 112: Negative or not required by law. The above report was generated using voice recognition software. It may contain grammatical, syntax or spelling errors. Electronically signed by: Cristino Man M.D. 10/11/2019 6:43 AM
[2019-10-11 07:23] LABS: Basophils # (auto) 0.01 K/uL (0-0.2); Basophils % (auto) 0.1 %; Eosinophils # (auto) 0.29 K/uL (0-0.5); Eosinophils % (auto) 3.4 %; Hematocrit (blood only) 46.9 % (37-47); Hemoglobin 16.4 g/dL (12.0-16.0); Immature Granulocytes # (auto) 0.06 K/uL (0.00-0.02); Immature Granulocytes % (auto) 0.7 %; Lymphocytes % (auto) 15.2 %; Mean Corpuscular Hemoglobin 32.3 pg (25-34); Mean Corpuscular Volume 92.5 fL (80-100); Mean Platelet Volume 10.7 fL (7.4-10.4); Monocytes # (auto) 0.69 K/uL (0.11-0.59); Monocytes % (auto) 8.1 %; Neutrophils # (auto) 6.21 K/uL (1.4-6.5); Neutrophils % (auto) 72.5 %; Platelet Count 271 K/uL (130-400); RDW Standard Deviation 46.9 fL (36.4-46.3); Red Blood Count 5.07 M/uL (4.2-5.4); White Blood Count 8.56 K/uL (4.8-10.8)
[2019-10-11 07:50] LABS: Albumin Level 2.6 gm/dl (3.4-5.0); BUN Creatinine Ratio 25.4 (10-20); Calcium 8.8 mg/dl (8.5-10.1); Creatinine Clr Calc Pharmacy 97.3 ml/min; Est GFR (African American) 105.3; Est GFR (Non-African American) 90.8; Potassium 3.8 mmol/L (3.5-5.1)
[2019-10-11 07:53] LABS: Albumin Globulin Ratio 0.7 (0.9-2); Bilirubin,Total 0.5 mg/dl (0.2-1); Globulin 3.8 gm/dl (2.5-4.0); Total Protein 6.4 gm/dl (6.4-8.2)
[2019-10-11] MEDS: lisinopriL 10 MG TAB PO SCH (08:39)
[2019-10-11] MEDS: METOPROLOL SUCC 50MG EXT REL TAB PO SCH (08:40)
[2019-10-11 11:15] LABS: CSF Chemistry Tube # 1
[2019-10-11] MEDS: POLYETHYLENE (MIRALAX) 17 GM PACK PO SCH (11:17)
[2019-10-11 11:20] LABS: CSF Glucose 93 mg/dl (40-70)
--- NOTE | 2019-10-11 11:26 | Fluoroscopy Report ---
FL lumbar puncture diagnostic CLINICAL HISTORY: Weakness. Possible infection COMPARISON STUDY: None FLUOROSCOPY TIME: 1.8 minutes. NUMBER OF FLUOROSCOPIC IMAGES: 9 FINDINGS: A timeout was performed. The risks the procedure were explained to the patient and informed consent was obtained. The patient prepped and draped in sterile fashion. The skin was anesthetized 1% lidocaine. Under fluoroscopic guidance, utilizing a 20-gauge needle, a lumbar puncture was attempted at the L5-S 1 level. Despite satisfactory needle position, no fluid was present. A fluoroscopically guided lumbar puncture was attempted at the L4-5 level. 6 cc of blood-tinged fluid was removed and into 4 tubes for laboratory analysis. The patient was sent to the floor for postprocedure observation. Careful monitoring recommended given the blood tinged fluid and the history of the patient previously being on anticoagulants IMPRESSION: 1. Lumbar puncture performed at the L4-5 level with 6 cc of blood-tinged fluid removed and into 4 tubes for laboratory analysis. 2. The patient was sent to the floor for postprocedure observation. ACT 112: Negative or not required by law. Electronically signed by: Avel Yu M.D. 10/11/2019 11:25 AM
[2019-10-11 12:02] LABS: Total Protein CSF 514.9 mg/dl (15-45)
[2019-10-11 12:08] LABS: Appearance CSF BLOODY; Color CSF RED; Mononuclear WBC CSF 97.6 %; Polynuclear WBC CSF 2.4 %; Red Blood Cell CSF (A) 13000 /uL (0-); White Blood Cell CSF (A) 551 /uL (0-5)
[2019-10-11 12:45] LABS: CSF Count Tube # 3; CSF Xanthrochromic Xanthochromic; Cryptococcus neoformans/ga PCR Not Detected (NotDetected); Cytomegalovirus PCR Not Detected (NotDetected); Enterovirus PCR Not Detected (NotDetected); Escherichia coli K1 PCR Not Detected (NotDetected); Haemophilius influenzae PCR Not Detected (NotDetected); Herpes Simplex Virus 1 PCR Not Detected (NotDetected); Herpes Simplex Virus 2 PCR Not Detected (NotDetected); Human Herpes Virus 6 PCR Not Detected (NotDetected); Human Parechovirus PCR Not Detected (NotDetected); Listeria monocytogenes PCR Not Detected (NotDetected); Neisseria meningitidis PCR Not Detected (NotDetected); Streptococcus agalactiae PCR Not Detected (NotDetected); Streptococcus pneumoniae PCR Not Detected (NotDetected); Varicella Zoster Virus PCR Not Detected (NotDetected)
--- NOTE | 2019-10-11 14:31 | Neurology Progress Note ---
Date of Service October 11, 2019 Assessment & Plan (1) Generalized weakness: Colleen Sanchez is an 79 yo woman w/ PMH of hypertension, prediabetes, hypothyroidism, anxiety, obesity, chronic right foot drop and recent tooth infection who presents to [facility] with subacute proximal weakness, worse on the left than the right, that has progressed over the last month. #Generalized weakness: c/f bacterial vs viral meningitis, unlikely to be GBS given CSF results -Broaden coverage to include bactrim IV and acyclovir IV (renal based dosing) with IVFs to prevent nephrotoxicity -No need for steroids as strep pneumo negative/outside of first 24 hours of infection -Would repeat blood culture and make sure that Listeria is also being tested -Continue ceftriaxone/doxycycline -Consider sending off for CSF fungal stains (crypto/Coccidioides) if CSF studies otherwise negative #Possible delirium: Improved today. Would do standard delirium precautions with lights on during day, lights off at night, frequent reorientation and avoidance of benzos/opiates as able to. Thank you for this interesting consult. Plan of care discussed with primary team. Please call or text with questions. (2) Thoracic spinal stenosis: (3) Lumbar spinal stenosis: Admission and Anticipated Discharge Date Admission Date: October 07, 2019 Anticipated date of discharge: 10/07/19 Subjective NAEs overnight. 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 LP obtained and notable for 551 WBCs with lymphocytic predominance/64754 RBCS/93 glucose/514.9 protein c/w meningitis. CSF biofire negative. Review of Systems Review of Systems: 14 point review of systems completed and negative except as in HPI. Results & Data ([facility]) Vital Signs (Past 12 Hours) Vital Signs Temp Pulse Pulse Resp BP Pulse Ox 10/11/19 13:58 158/75 H 10/11/19 13:00 163/77 H 10/11/19 12:28 36.4 C L 63 18 191/85 H 95 10/11/19 11:14 36.5 C 66 20 180/82 H 95 10/11/19 08:07 36.7 C 76 18 151/79 H 94 10/11/19 04:30 167/88 H Exam (Neuro) Physical Exam: General Exam: GEN: NAD, sitting in bed. HEENT: No conjunctival injection, no rhinorrhea. CV: RRR, no peripheral edema PULM: Nonlabored respirations on room air. Neuro Exam: MS: Alert, awake. Oriented to person, place, and month/year. Speech fluent and appropriate with mild dysarthria, no paraphasic errors. Language intact including naming, comprehension, repetition. Cognition and memory grossly intact. Inattentive. No neglect. CN: Visual velazquez full. No extinction to double simultaneous stimuli. No optic disc edema on fundoscopic exam. PERRLA OU. EOMI without nystagmus. Facial sensation intact to LT. Left facial droop. Hearing intact to conversation. Uvula midline with symmetric palatal elevation. Shoulder shrug normal. Tongue midline. Bilateral ptosis noted with diplopia on extended upgaze. Unable to elevate head from bed. MOTOR: Normal bulk, decreased tone in BUEs. Unable to assess pronator drift due BUE weakness. BUE strength 1/5 at deltoids, 3/5 R biceps, 2/5 L biceps, 2/5 bilateral triceps, and 4/5 hand grasp bilaterally. BLE strength 4/5 at R clemencia opsoas, 4-/5 L iliopsoas, 4/5 bilateral hamstrings, 4/5 bilateral quadriceps, 5/5 L tibialis anterior, 0/5 R tibialis anterior, and 5/5 gastrocnemius bilaterally. REFLEXES: Trace at biceps, triceps, brachioradialis, absent patella and absent Achilles bilaterally. Flexor plantar responses bilaterally. SENSORY: Intact to LT without extinction to double simultaneous stimuli. Vibration intact in BUEs, absent in BLEs up to the knees. COORDINATION: No dysmetria or ataxia on [id number] bilaterally. Normal Regi bilaterally. GAIT: deferred given weakness/fall risk PG Care Time/CCT Total # of Minutes Spent Total Time Spent with Patient: Total time spent is greater than 50% in coordination of care (as documented) at patient's floor/unit and/or counseling patient: Coding Level of Care Code 80132 Subseq Hosp Care Lvl 3 Diagnoses Generalized weakness R53.1 Thoracic spinal stenosis M48.04 Lumbar spinal stenosis M48.061
[2019-10-11] MEDS: cefTRIAXone SODIUM 2,000 MG in DEXTROSE 5% 50 ML IV SCH (15:53)
[2019-10-11] MEDS ORDERED: SODIUM CHLORIDE 0.9% 1000ML 1,000 ML IV SCH (16:00)
[2019-10-11] MEDS: SULFA IV SCH ×2 (16:28→22:00)
[2019-10-11] MEDS: TRIMETH IV SCH ×2 (16:28→22:00)
[2019-10-11] MEDS: DEXTROSE 5% IV SCH ×2 (16:28→22:00)
--- NOTE | 2019-10-11 16:58 | Critical Care Consultation ---
Date of Consultation October 11, 2019 Assessment & Plan (1) Poor venous access: 79 yo F PMHx recent LUE cellulitis tx with Keflex, HTN, HLD, prediabetes, chronic R foot drop 2/2 lumbar spinal stenosis requiring central venous catheter due to poor venous access and preparation for long-term antibiotic use. Poor venous access: - Noted on IV team exam to have insufficient venous diameter for ultrasound- guided PICC/midline placement. - Will require long-term antibiotics (~28 days) for possible Lyme neuritis. - Please see Dr. Noriega's procedure note for procedure details. (2) Temporary central venous catheter in place: History of Present Illness Reason for Consultation: poor venous access, need for long-term antibiotics Requesting Physician: Kary Ayala Attending Physician: Carlos Dobbs MD History of Present Illness 79 yo F PMHx 79yo female PMHx recent LUE cellulitis tx with Keflex HTN, HLD, prediabetes, chronic R foot drop 2/2 lumbar spinal stenosis admitted from home for mechanical fall, L shoulder pain and weakness L>R UE. Found to have a high-g rade partial thickness tear of the mid and anterior aspect of the supraspinatus tendon by Orthopedics. Developed fever and mild leukocytosis several days into admission and was tested for Lyme IgM and IgG, both of which came back positive. Patient was started on ceftriaxone and doxycycline at that time. Neurology was consulted for subacute weakness, and noted absent reflexes in the biceps, triceps, brachioradialis, quadriceps, and Achilles tendons bilaterally, with negative Babinski. 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 LP was performed and notable for WBCs 551 with lymphocytic predominance, RBCs 13,000, glucose 93, total protein 514.9. CSF meningitis PCR panel sent. Recommendation made by Neurology to broaden coverage to Bactrim, acyclovir, ceftriaxone, and doxycycline IV with need for central access given treatment duration of 28 days. Both of pt's arms were evaluated for ultrasound-guided placement. She was found on evaluation to have insufficient venous diameter for placement. Right basilic vein was non-compressible. As patient was not appropriate for PICC/midline placement under ultrasound guidance, pond supervisor team was consulted for central line placement. Allergies Allergy/AdvReac Type Severity Reaction Status Date / Time Penicillins Allergy Unknown HIVES TO Verified 10/05/19 23:03 "CILLINS" Home Medications Home Medications Medication Instructions Recorded Confirmed Type Synthroid 125 mcg tablet 125 mcg PO DAILY #90 tab NS 09/26/19 10/05/19 Rx metoprolol succinate 25 mg 25 mg PO DAILY #30 tab 09/26/19 10/05/19 Rx tablet,extended release 24 hr [employer] 1 tab PO DAILY 10/05/19 10/05/19 History Probiotic & Vit B 1 tab PO DAILY 10/05/19 10/05/19 History cephalexin [Keflex] 250 mg PO TID 10/05/19 10/05/19 History Patient History Medical History Arthralgia of multiple sites (Chronic) History of hyperlipidemia HTN (hypertension) (Chronic) Hypothyroidism (Chronic) Impaired fasting glucose (Chronic) Open fracture of great toe of left foot (Resolved) Open fracture of great toe of left foot (Inactive) Surgical History History of knee replacement Hx of tonsillectomy Hx of wisdom tooth extraction S/P cholecystectomy (Inactive) Family History Grandfather (Paternal) Myocardial infarction Father , age 73 of a stroke Stroke Mother , age 87 of renal disease Kidney disease Denies family history of Ovarian cancer Prostate cancer Breast cancer Colorectal cancer Social History Smoking Status: Never smoker Hx Alcohol Use: Yes Alcohol type: wine Alcohol Intake Frequency Comment: very rare, 2 or 3 times per year Hx Substance Use: No Preferred Language: Guatemalan Communication Ability: Effective Terrazzo Supervisor Required: No Beliefs That Will Affect Care: None marital status: Unknown Current Living Situation: Other Current Living Situation Comment: With partner Dalia Angel 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 Other Information That Helps Us Care for You: No Feels Safe at Home: Yes Safety Concerns: Feels Safe At This Time caffeine: Yes Dental Care, Regularly: No Physical Activity Frequency: Does not Exercise Seatbelt Use: always Sunscreen Use: Yes Review of Systems Constitutional: no fever and no chills Respiratory: no cough and no dyspnea Cardiovascular: no chest pain, no palpitations and no edema Gastrointestinal: no nausea, no vomiting and no diarrhea/loose stools Physical Exam Constitutional: WD/WN, vitals as above Neck: trachea midline, no thyromegaly normal visual inspection No neck masses Cardiovascular: Rate/Rhythm: regular rate and regular rhythm 3+ carotid pulse bilaterally no carotid bruits Skin: No masses visible on anterior chest Psychiatric: Orientation: alert and oriented x 3 Results & Data Results & Data ([facility]) Vital Signs (Past 12 Hours) Vital Signs Temp Pulse Pulse Resp BP Pulse Ox 10/11/19 15:22 36.3 C L 75 17 169/81 H 96 10/11/19 13:58 158/75 H 10/11/19 13:00 163/77 H 10/11/19 12:28 36.4 C L 63 18 191/85 H 95 10/11/19 11:14 36.5 C 66 20 180/82 H 95 10/11/19 08:07 36.7 C 76 18 151/79 H 94 Resident Activity Tracking Resident Involvement: Resident Care Provided Care Provided: Adult Hospital Medicine
[2019-10-11] MEDS ORDERED: NSS + 20MEQ KCL 20 MEQ/1,000 ML BAG IV SCH (17:00)
--- NOTE | 2019-10-11 17:10 | Hospitalist Progress Note ---
Date of Service October 11, 2019 Assessment & Plan (1) Generalized weakness: Recent abx with Keflex for LUE cellulitis, finished on Thursday. Also with L lower molar tooth infection which has decreased her oral intake over past several weeks. Had been attempting to get in to see dentist. Thought partial coverage previously with keflex. 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 * Left shoulder pain and weakness on admission, limited mobility affecting ADLs s/p fall. Calcific tendinosis noted on CT imaging. --> Although, with generalized weakness and b/l UE weakness * ESR 21 -- unlikely PMR * CK 165 * MRI LEFT shoulder with partial vs focal full thickness tear supraspinatus * Ortho consulted -- possible injection suggested but holding off given recent dental infxn * PT/OT -- please continue while inpatient with rec for SNF at d/c -- CM to assist. [facility] denied. Ref sent to [facility] pending. * Heat to affect area Voltaren gel topical to see if any additional relief/improvement * MRIs as above * Ortho spine consulted -- conservative management with PT/OT. No radicular symptoms noted per note * Peripheral smear without evidence for inclusion bodies. Babesiosis pending * UA initially without growth, then re-incubated --> resulted with corynebacterium urealyticum -- WBC only elevated up to 11.2k so would doubt this as source. * Blood cultures NGTD, repeated per neuro rec * ECHO without vegetation but cannot exclude definitively, normal EF * Initiated on Ceftriaxone and Doxy IV for pneumonia on imaging evening 10/07 (which should also cover for possible Lyme Neuritis). 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 Increased ceftriaxone to 2g BID to cover for meningitis * Lyme WB with 3 reactive IGM bands and 3 reactive IGg bands - possible Lyme Neuritis and would be treated with Ceftriaxone IV x 28 days (initiated evening of 8 given pneumonia noted on and combined with doxy for atypical coverage to cover for both possibilities) and would need a PICC line. 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 (2) Left arm weakness: * See above (3) Hypothyroidism: * Chronic. Stable * TSH 1.73 * Continue Synthroid 125mcg po daily (4) HTN (hypertension): * Chronic. * BPs have been elevated - increased lisinopril to 10mg * Continue prn hydralazine * SBP running 150s to 180s systolically * Continue home metoprolol 25mg -- could consider titrating this up as well if needing more BP control * VS changed to Q4h for closer monitoring * Trop normal x 3, no complaints of chest pain or sob. (5) Fall: * See above (6) Hypokalemia: * resolved (7) Obesity, diabetes, and hypertension syndrome: * Most recent A1c 6.9 * Not on an outpatient medications -- should ideally be initiated on metformin but patient not wanting to be on additional medication at this time (8) Arthralgia of multiple sites: * See above (9) Tooth infection: * reported infection L bottom tooth -- had been attempting to get in with dentist but not yet able. Thought partial coverage with Keflex for recent LUE cellulitis * Will need follow up and possible cont'd abx. No pain with eating * continue ceftriaxone (10) Hyperlipemia: * Most recent cholesterol September 2019 -- patient should ideally be on statin given elevated cholesterol and atherosclerosis/stenosis on imaging * -- will hold off for now given generalized weakness but will need to discuss with pt prior to discharge (11) Pneumonia: * Patient with recorded Pox 74% on RA, hypoxia now resolved * CXR showed LLL infiltrate * CT chest with confirmation of infiltrate with small b/l effusions. * Continue IS * Continue Ceftriaxone, Doxy IV (12) DVT prophylaxis: * SCDs, Lovenox - held for LP am - will resume tomorrow morning Patient's son updated over the phone Admission and Anticipated Discharge Date Admission Date: October 07, 2019 Subjective Ms. Sanchez continues to be quite weak. She is not having any pain. ROS Constitutional: no chills, aches, sweats or fever Respiratory: no sob,cough, sputum, or wheezing Cardiac: no chest pain, palpitations, edema, orthopnea or lightheadedness GI: no abdominal pain, nausea, vomiting, diarrhea or constipation : no dysuria or hesitancy Extremities: no joint pain or weakness Skin: no rash All other systems reviewed and negative Physical Exam Physical Exam: General: no distress Eyes: normal inspection, PERLL Respiratory: chest non tender, clear to auscultation, normal breath sounds, no respiratory distress, no accessory muscle use Cardiac: regular rate and rhythm, no rub or gallop, no murmur, no edema, no jvd GI/: active bowel sounds, no abd pain or tenderness, soft, non distended Extremities: generalized weakness left > right, non tender Neuro/Psych: alert and oriented x 3, normal mood and affect, left facial droop Skin: normal color, dry Results & Data Results & Data ([facility]) Vital Signs (Past 12 Hours) Vital Signs Temp Pulse Pulse Resp BP Pulse Ox 10/11/19 15:22 36.3 C L 75 17 169/81 H 96 10/11/19 13:58 158/75 H 10/11/19 13:00 163/77 H 10/11/19 12:28 36.4 C L 63 18 191/85 H 95 10/11/19 11:14 36.5 C 66 20 180/82 H 95 10/11/19 08:07 36.7 C 76 18 151/79 H 94 PG Care Time/CCT Total # of Minutes Spent Total Time Spent with Patient: Total time spent is greater than 50% in coordination of care (as documented) at patient's floor/unit and/or counseling patient: Coding Level of Care Code 96414 Subseq Hosp Care Lvl 3 Diagnoses Generalized weakness R53.1 Left arm weakness R29.898 Hypothyroidism E03.9 Hypothyroidism type: unspecified HTN (hypertension) I10 Hypertension type: essential hypertension Fall W19.XXXA Encounter type: initial encounter Hypokalemia E87.6 Obesity, diabetes, and hypertension syndrome E11.69; E11.59; E66.9; I10 Arthralgia of multiple sites M25.50 Tooth infection K04.7 Hyperlipemia E78.5 Pneumonia J18.9 DVT prophylaxis Z29.9 (1) Hypothyroidism Hypothyroidism type: unspecified Qualified Code(s): E03.9 - Hypothyroidism, unspecified (2) HTN (hypertension) Hypertension type: essential hypertension Qualified Code(s): I10 - Essential (primary) hypertension (3) Fall Encounter type: initial encounter Qualified Code(s): W19.XXXA - Unspecified fall, initial encounter
--- NOTE | 2019-10-11 18:23 | Procedure Note ---
Procedure Note Date of Service October 11, 2019 Procedure date: Noted above Procedure: Central venous access Pre-procedure indication: Poor vascular access, need for long-term antibiotic administration. Post-procedure Diagnosis: same as above Prior to Procedure: Informed Consent: The risks, benefits, indications, potential complications, and alternatives were explained to the patient and informed consent obtained. Attending Staff: Latrice Noriega DO Resident/APC: Dr. Rachel REYES Skin Prep: Chlorhexidine Anesthesia: 4 mL 1% lidocaine without epinephrine The identity of the patient was confirmed and a bedside time out was performed. Description of Procedure: After sterile prep and sterile drape utilizing standard sterile technique the superficial skin of the right internal jugular area was anesthetized. The target vessel was identified and entered with an 22- gauge needle. Dark venous blood return was noted. A guidewire was inserted through the needle and into the vessel. The needle was withdrawn and a skin kashmir was made. A tissue dilator was advanced via Seldinger technique and removed. A single lumen catheter was inserted via Seldinger technique to a distance of 15 cm and the guidewire removed. The port comfort and flushed easily. A Biopatch was placed, and the catheter was secured via commercial securement de vice. A sterile dressing was then applied. Complications: None Estimated blood loss: Trace Patient tolerated the procedure well. Procedure Date: Noted Above Procedure: Procedural Ultrasound Indication: Central venous access Attending: Latrice Noriega DO Resident/Physician Oil Driller: Dr. Rachel REYES Artery visualized: Yes Vein visualized: Yes Compressible Vein: Yes Vein patent: Yes Guidewire or Short Catheter seen in vein prior to dilation: Yes Line confirmed in Vein with ultrasound: Yes Lung Sliding on side of attempt (if applicable): NA If no lung sliding or not obtained has CXR been ordered: Yes Impression: Successful central venous access placement Images obtained are saved for permanent record Coding CPT Codes Tubes, Drains, and Vasc Access - Tubes, Drains, and Vasc Access: [id number] Insertion Of Non-tunneled Catheter Age 4 Yrs> ([id number]) Tubes, Drains, and Vasc Access - Tubes, Drains, and Vasc Access: [id number] Ultrasoun d Guidance For Vascular ([id number]) [facility] Procedure Codes (Charges) Tubes, Drains, and Vasc Access Procedure 1: Tubes, Drains, and Vasc Access: [id number] Insertion Of Non-tunneled Catheter Age 4 Yrs> Procedure 2: Tubes, Drains, and Vasc Access: [id number] Ultrasound Guidance For Vascular
--- NOTE | 2019-10-11 18:28 | XRay Report ---
SINGLE VIEW CHEST CLINICAL HISTORY: Central venous catheter placement. FINDINGS: An AP, portable, semierect chest radiograph is compared to chest x-ray and chest CT dated . The examination is degraded by portable technique and patient rotation. A right internal jug ular central venous catheter has been placed. The tip of the catheter projects over the SVC. The hear t is top normal for projection noting atherosclerotic calcification of the thoracic aorta. The pulmon ellen vasculature is noncongested. Chronic interstitial thickening is similar to previous. Airspace opa cities are present at the left lung base. No large pleural effusion is identified. No pneumothorax is seen. The skeletal structures are osteopenic. The bony thorax is grossly intact. IMPRESSION: 1. A right internal jugular central venous catheter has been placed as above. 2. No pneumothorax is seen post procedure. 3. Airspace opacities are again seen at the left lung base. ACT 112: Negative or not required by law. Electronically signed by: Miki Harden M.D. 10/11/2019 6:27 PM
[2019-10-11] MEDS: SODIUM CHLORIDE 0.9% 1000ML 1,000 ML IV SCH (18:30)
[2019-10-11] MEDS: ACYCLOVIR SOD 600 MG in DEXTROSE 5% 100 ML IV SCH (19:24)
[2019-10-11] MEDS ORDERED: PHARMACY GLYCEMIC MGMT CONSULT PRN (21:36)
[2019-10-11] MEDS ORDERED: GLUCOSE 10 TABS/TUBE PO PRN (21:45)
[2019-10-11] MEDS ORDERED: CARBOHYDRATES FOR HYPOGLYCEMIA PO PRN (21:45)
[2019-10-11] MEDS ORDERED: GLUCAGON FOR INJ 1 MG VIAL SQ PRN (21:45)
[2019-10-11] MEDS ORDERED: DEXTROSE 50% 50 ML SYRINGE IV PRN (21:45)
[2019-10-11] MEDS ORDERED: GLUCOSE 40% GEL 15 GM TUBE PO PRN (21:45)
[2019-10-11] MEDS ORDERED: LANTUS PER UNIT CHARGE SQ ONE (21:45)
[2019-10-11] MEDS: DOXYCYCLINE HYCLATE 100 MG CAP PO SCH (21:46)
[2019-10-11] MEDS: INSULIN ASPART 100 UNITS/ML 3 ML PEN SC SCH (22:01)
[2019-10-12] MEDS ORDERED: INSULIN ASPART 100 UNITS/ML 3 ML PEN SC SCH
[2019-10-12] MEDS: ACYCLOVIR SOD 600 MG in DEXTROSE 5% 100 ML IV SCH ×3 (01:28→17:57)
[2019-10-12] MEDS: cefTRIAXone SODIUM 2,000 MG in DEXTROSE 5% 50 ML IV SCH ×2 (04:01→14:46)
[2019-10-12] MEDS: SODIUM CHLORIDE 0.9% 1000ML 1,000 ML IV SCH ×2 (04:01→15:31)
[2019-10-12] MEDS: TRIMETH IV SCH ×3 (04:42→21:47)
[2019-10-12] MEDS: DEXTROSE 5% IV SCH ×3 (04:42→21:47)
[2019-10-12] MEDS: SULFA IV SCH ×3 (04:42→21:47)
[2019-10-12] MEDS: LEVOTHYROXINE SODIUM 125 MCG TABLET PO SCH (05:41)
[2019-10-12] MEDS: DICLOFENAC SOD 1% GEL 100 GM TUBE EXT SCH ×3 (05:41→21:46)
[2019-10-12 06:09] LABS: Hematocrit (blood only) 43.7 % (37-47); Hemoglobin 14.7 g/dL (12.0-16.0); Mean Corpuscular Hgb Conc 33.6 g/dL (32-36); Mean Corpuscular Volume 92.2 fL (80-100); Mean Platelet Volume 10.7 fL (7.4-10.4); Platelet Count 290 K/uL (130-400); RDW Coefficient of Variation 13.9 % (11.5-14.5); RDW Standard Deviation 47.4 fL (36.4-46.3); Red Blood Count 4.74 M/uL (4.2-5.4); White Blood Count 7.64 K/uL (4.8-10.8)
[2019-10-12 06:32] LABS: BUN Creatinine Ratio 18.2 (10-20); Est GFR (African American) 101.5; Est GFR (Non-African American) 87.6; Potassium 3.5 mmol/L (3.5-5.1)
[2019-10-12] MEDS: METOPROLOL SUCC 50MG EXT REL TAB PO SCH (08:41)
[2019-10-12] MEDS: POLYETHYLENE (MIRALAX) 17 GM PACK PO SCH (08:41)
[2019-10-12] MEDS: lisinopriL 10 MG TAB PO SCH (08:42)
[2019-10-12] MEDS: DOXYCYCLINE HYCLATE 100 MG CAP PO SCH ×2 (08:43→21:45)
[2019-10-12] MEDS: INSULIN ASPART 100 UNITS/ML 3 ML PEN SC SCH ×4 (08:53→21:46)
--- NOTE | 2019-10-12 09:48 | Pharmacy Report ---
Glycemic Control Consultation - Date of Service October 12, 2019 - Scope Scope: Glycemic Pharmacist consulted for glycemic control and to write orders per [facility] inpatient glycemic control protocol. - Objective Weight: 89.6 kg Accuchecks BSG (last 24hrs): 10/11/19 10/11/19 10/11/19 11:57 17:19 20:45 Glucose POC Glucose 139 H 224 H 225 H 10/12/19 10/12/19 10/12/19 00:01 05:47 08:18 Glucose 178 H POC Glucose 188 H 128 H Laboratory Data (last 24hrs): 10/12/19 05:47 Potassium 3.5 Carbon Dioxide 24 Anion Gap 9.0 Creatinine 0.57 L Est Cr Clr Drug Dosing 87.0 - Recent Pertinent Medications Outpatient Anti-diabetic Regimen: * None * A1c = 6.9 % (09/26/19) Prior to consult, patient was not receiving any insulin/antidiabetic medications Risk Factors for Insulin Resistance: * Infection: Lyme disease/meningitis? IV ceftriaxone, IV sulfamethoxazole/trimethoprim, IV acyclovir, PO doxycycline * IVF: NS @ 100 mL/hr * Diet: Heart healthy - Assessment & Plan Assessment & Plan: ASSESSMENT: * AB is an 79 year old female admitted to [facility] on 10/04 for generalized weakness * Currently ordered IV ceftriaxone, IV acyclovir, IV sulfamethoxazole/trimethoprim, and PO doxycycline for possible meningitis vs. lyme disease * All currently ordered IV antibiotics are in D5W ~ originally 2400 mL/day of D5W * - IV sulfamethoxazole/trimethoprim changed from q6h to q12h, which will decrease fluids to 1400 mL of D5W/day total (~70 g of dextrose/day) * BSGs elevated yesterday, ranging (139-225 mg/dL) * Patient would prefer to manage BSGs with diet, originally refused, but is now accepting insulin * Lantus 15 units x 1 given last evening - fasting BSG of 128 mg/dL this morning PLAN FOR INPATIENT GLYCEMIC CONTROL: * Basal insulin - scale * Lantus 0-15 units (see EHR for details) * Bolus insulin - tighten carb ratio * NovoLog per scale ACHS or Q6hrs while NPO * Goal Range: Low 110 mg/dL - High 140 mg/dL * Correction Factor: 25 mg/dL/unit * Nutritional / Prandial insulin per carb ratio of 1 unit per 7 grams CHO consumed * Please note that the plan above was derived based on current level of insulin resistance and hospital stress. These recommendations are appropriate for inpatient admission only. Plan of care upon discharge will need to be reassessed to avoid potential outpatient hypo/hyperglycemia. Thank you.
--- NOTE | 2019-10-12 17:02 | Hospitalist Progress Note ---
Date of Service October 12, 2019 Assessment & Plan (1) Generalized weakness: Recent abx with Keflex for LUE cellulitis, finished on Thursday. Also with L lower molar tooth infection which has decreased her oral intake over past several weeks. Had been attempting to get in to see dentist. Thought partial coverage previously with keflex. No reported fever, but has had chills [employer]. * Left shoulder pain and weakness on admission, limited mobility affecting ADLs s/p fall. Calcific tendinosis noted on CT imaging. --> Although, with generalized weakness and b/l UE weakness * ESR 21 -- unlikely PMR * CK 165 * MRI LEFT shoulder with partial vs focal full thickness tear supraspinatus * Ortho consulted -- possible injection suggested but holding off given recent dental infxn * PT/OT -- please continue while inpatient with rec for SNF at d/c -- CM to assist. [facility] denied. Ref sent to [facility] pending. * Heat to affect area Voltaren gel topical to see if any additional relief/improvement * MRIs as above * Ortho spine consulted -- conservative management with PT/OT. No radicular symptoms noted per note * Peripheral smear without evidence for inclusion bodies. Babesiosis pending * UA initially without growth, then re-incubated --> resulted with corynebacterium urealyticum -- WBC only elevated up to 11.2k so would doubt this as source. * Blood cultures NGTD, repeated per neuro rec * ECHO without vegetation but cannot exclude definitively, normal EF * Initiated on Ceftriaxone and Doxy IV for pneumonia on imaging evening 10/07 (which should also cover for possible Lyme Neuritis). 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 Increased ceftriaxone to 2g BID to cover for meningitis * Lyme WB with 3 reactive IGM bands and 3 reactive IGg bands - possible Lyme Neuritis and would be treated with Ceftriaxone IV x 28 days (initiated evening of 10/07 given pneumonia noted on and combined with doxy for atypical coverage to cover for both possibilities) and would need a PICC line. 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 10/11 - patient developed some dysarthria and was very drowsy. She is oriented when she awakens and conversant. She did have a low blood sugar this evening in the 60s which may have contributed. Discussed with neurology who suggested a brain MRI with contrast. Patient is very resistant to another MRI so will hold off on ordering another one for now. Given that she is not exhibiting other new focal symptoms, will monitor her tonight and re-evaluate in the morning. (2) Left arm weakness: * See above (3) Hypothyroidism: * Chronic. Stable * TSH 1.73 * Continue Synthroid 125mcg po daily (4) HTN (hypertension): * Chronic. * BPs continue be somewhat labile - increased lisinopril to 10mg * Continue prn hydralazine * Continue home metoprolol 25mg -- could consider titrating this up as well if needing more BP control * VS changed to Q4h for closer monitoring * Trop normal x 3, no complaints of chest pain or sob. (5) Fall: * See above (6) Hypokalemia: * resolved (7) Obesity, diabetes, and hypertension syndrome: * Most recent A1c 6.9 * Not on an outpatient medications -- should ideally be initiated on metformin but patient not wanting to be on additional medication at this time * Blood sugars elevated, likely partially due to dextrose in abx. Pharmacy consulted for glycemic management (8) Arthralgia of multiple sites: * See above (9) Tooth infection: * reported infection L bottom tooth -- had been attempting to get in with dentist but not yet able. Thought partial coverage with Keflex for recent LUE cellulitis * Will need follow up and possible cont'd abx. No pain with eating * continue ceftriaxone (10) Hyperlipemia: * Most recent cholesterol September 2019 -- patient should ideally be on statin given elevated cholesterol and atherosclerosis/stenosis on imaging * -- will hold off for now given generalized weakness but will need to discuss with pt prior to discharge (11) Pneumonia: * Patient with recorded Pox 74% on RA, hypoxia now resolved * CXR showed LLL infiltrate * CT chest with confirmation of infiltrate with small b/l effusions. * Continue IS * Continue Ceftriaxone, Doxy IV (12) DVT prophylaxis: * SCDs, Lovenox Admission and Anticipated Discharge Date Admission Date: October 07, 2019 Subjective Ms. Sanchez continues to be very weak but otherwise does not have symptoms. This evening she has developed some dysarthria. She continues to be oriented throughout our discussion ROS Constitutional: no chills, aches, sweats or fever Respiratory: no sob,cough, sputum, or wheezing Cardiac: no chest pain, palpitations, edema, orthopnea or lightheadedness GI: no abdominal pain, nausea, vomiting, diarrhea or constipation : no dysuria or hesitancy Extremities: generalized weakness Skin: no rash All other systems reviewed and negative Physical Exam Physical Exam: General: no distress Eyes: normal inspection, PERLL Respiratory: chest non tender, clear to auscultation, normal breath sounds, no respiratory distress, no accessory muscle use Cardiac: regular rate and rhythm, no rub or gallop, 2/6 systolic murmur, no edema, no jvd GI/: active bowel sounds, no abd pain or tenderness, soft, non distended Extremities: normal range of motion, generalized weakness, non tender Neuro/Psych: drowsy and oriented x 3, normal mood and affect, dysarthria, left facial droop Skin: normal color, dry Results & Data Results & Data ([facility]) Vital Signs (Past 12 Hours) Vital Signs Temp Pulse Resp BP BP Pulse Ox 10/12/19 15:01 36.9 C 65 18 112/61 95 10/12/19 07:29 156/68 H 10/12/19 07:26 36.4 C L 65 16 187/74 H 95 PG Care Time/CCT Total # of Minutes Spent Total Time Spent with Patient: Total time spent is greater than 50% in coordinat ion of care (as documented) at patient's floor/unit and/or counseling patient: Coding Level of Care Code 02672 Subseq Hosp Care Lvl 3 Diagnoses Generalized weakness R53.1 Left arm weakness R29.898 Hypothyroidism E03.9 Hypothyroidism type: unspecified HTN (hypertension) I10 Hypertension type: essential hypertension Fall W19.XXXA Encounter type: initial encounter Hypokalemia E87.6 Obesity, diabetes, and hypertension syndrome E11.69; E11.59; E66.9; I10 Arthralgia of multiple sites M25.50 Tooth infection K04.7 Hyperlipemia E78.5 Pneumonia J18.9 DVT prophylaxis Z29.9 (1) Hypothyroidism Hypothyroidism type: unspecified Qualified Code(s): E03.9 - Hypothyroidism, unspecified (2) HTN (hypertension) Hypertension type: essential hypertension Qualified Code(s): I10 - Essential (primary) hypertension (3) Fall Encounter type: initial encounter Qualified Code(s): W19.XXXA - Unspecified fall, initial encounter
[2019-10-12 18:59] LABS: Babesia microti IgG <1:64 titer (<1:64)
[2019-10-12] MEDS: ENOXAPARIN INJ 40 MG/0.4 ML SYR SQ SCH (19:05)
[2019-10-12] MEDS ORDERED: INSULIN GLARGINE SOLOSTAR 100 UNITS/ML 3 ML PEN SC SCH (21:00)
[2019-10-13] MEDS: SODIUM CHLORIDE 0.9% 1000ML 1,000 ML IV SCH ×2 (01:31→11:01)
[2019-10-13] MEDS: ACYCLOVIR SOD 600 MG in DEXTROSE 5% 100 ML IV SCH ×3 (02:44→18:56)
[2019-10-13] MEDS: ARTIFICIAL TEARS OP OINT 3.5 GM TUBE OP PRN ×2 (02:45→21:38)
[2019-10-13] MEDS: cefTRIAXone SODIUM 2,000 MG in DEXTROSE 5% 50 ML IV SCH ×2 (03:54→16:25)
[2019-10-13] MEDS ORDERED: HEPARIN 100 UNIT/ML 5ML FLUSH FLUSH PRN (04:50)
[2019-10-13] MEDS: DICLOFENAC SOD 1% GEL 100 GM TUBE EXT SCH ×3 (05:03→21:57)
[2019-10-13] MEDS: LEVOTHYROXINE SODIUM 125 MCG TABLET PO SCH (06:17)
[2019-10-13 08:37] LABS: Hematocrit (blood only) 41.9 % (37-47); Hemoglobin 14.3 g/dL (12.0-16.0); Mean Corpuscular Hemoglobin 31.6 pg (25-34); Mean Corpuscular Hgb Conc 34.1 g/dL (32-36); Mean Corpuscular Volume 92.7 fL (80-100); Mean Platelet Volume 10.7 fL (7.4-10.4); Platelet Count 289 K/uL (130-400); RDW Coefficient of Variation 14.4 % (11.5-14.5); RDW Standard Deviation 48.3 fL (36.4-46.3); Red Blood Count 4.52 M/uL (4.2-5.4); White Blood Count 8.51 K/uL (4.8-10.8)
[2019-10-13 09:12] LABS: Albumin Level 2.3 gm/dl (3.4-5.0); BUN Creatinine Ratio 22.9 (10-20); Calcium 8.5 mg/dl (8.5-10.1); Creatinine Clr Calc Pharmacy 56.4 ml/min; Est GFR (African American) 71.9; Est GFR (Non-African American) 62.1; Potassium 3.7 mmol/L (3.5-5.1)
[2019-10-13 09:17] LABS: Albumin Globulin Ratio 0.7 (0.9-2); Bilirubin,Total 0.2 mg/dl (0.2-1); Globulin 3.3 gm/dl (2.5-4.0); Total Protein 5.6 gm/dl (6.4-8.2)
[2019-10-13] MEDS: lisinopriL 10 MG TAB PO SCH (09:18)
[2019-10-13] MEDS: DOXYCYCLINE HYCLATE 100 MG CAP PO SCH ×2 (09:18→20:14)
[2019-10-13] MEDS: METOPROLOL SUCC 50MG EXT REL TAB PO SCH (09:19)
[2019-10-13] MEDS: POLYETHYLENE (MIRALAX) 17 GM PACK PO SCH (09:23)
[2019-10-13] MEDS: INSULIN ASPART 100 UNITS/ML 3 ML PEN SC SCH ×4 (09:38→21:07)
--- NOTE | 2019-10-13 10:16 | Neurology Progress Note ---
Date of Service October 13, 2019 Assessment & Plan (1) Generalized weakness: Colleen Sanchez is an 79 yo woman w/ PMH of hypertension, prediabetes, hypothyroidism, anxiety, obesity, chronic right foot drop and recent tooth infection who presents to [facility] with subacute proximal weakness, worse on the left than the right, that has progressed over the last month. #Generalized weakness: most c/f WNV vs tickborne encephalitis, less likely insidious fungal infection like crypto or Listeria. Unfortunately, abx started more than 24 hours before LP so yield of organism may be low (assuming coverage by ceftriaxone/doxycycline). - recommend continuing IV ceftriaxone for the full duration of [employer] disease treatment (usually 21 days) - would continue IV acyclovir pending WNV result - would like to repeat MRI brain w/ contrast when able/pt ok to do to see if the diffusion restriction is resolving (related more to infection) or if it represents an evolving infarct. Ok to do this as an outpatient with an open MRI as long as no significant decompensation neurologically. #Possible delirium: Improved today. Would do standard delirium precautions with lights on during day, lights off at night, frequent reorientation and avoidance of benzos/opiates as able to. Thank you for this interesting consult. Plan of care discussed with primary team. Please call or text with questions. (2) Thoracic spinal stenosis: (3) Lumbar spinal stenosis: Admission and Anticipated Discharge Date Admission Date: October 07, 2019 Anticipated date of discharge: 10/07/19 Subjective Had episode of drowsiness a/w dysarthria yesterday evening. Noted to have blood sugars in the 60s. Did not want repeat MRI brain given claustrophobia. Is looking much better this afternoon, no longer having ptosis and more engaged in conversation. Review of Systems Review of Systems: 14 point review of systems completed and negative except as in HPI. Results & Data ([facility]) Vital Signs (Past 12 Hours) Vital Signs Temp Pulse Pulse Resp BP Pulse Ox 10/13/19 05:09 36.4 C L 74 12 134/76 95 10/12/19 23:40 36.7 C 61 20 148/69 H 94 10/12/19 23:17 78 18 94 Exam (Neuro) Physical Exam: General Exam: GEN: NAD, sitting in bed. HEENT: No conjunctival injection, no rhinorrhea. CV: RRR, no peripheral edema PULM: Nonlabored respirations on room air. Neuro Exam: MS: Alert, awake. Oriented to person, place, and month/year. Speech fluent and appropriate with mild dysarthria, no paraphasic errors. Language intact including naming, comprehension, repetition. Cognition and memory grossly intact. More attentive. No neglect. CN: Visual velazquez full. No extinction to double simultaneous stimuli. No optic disc edema on fundoscopic exam. PERRLA OU. EOMI without nystagmus. Facial sensation intact to LT. Left facial droop. Hearing intact to conversation. Uvula midline with symmetric palatal elevation. Shoulder shrug normal. Tongue midline. Ptosis resolved. Able to elevate head from bed. MOTOR: Normal bulk, decreased tone in BUEs. Unable to assess pronator drift due BUE weakness. BUE strength 1/5 at deltoids, 4-/5 R biceps, 3/5 L biceps, 4-/5 bilateral triceps, and 5-/5 hand grasp bilaterally. BLE strength 4/5 at R iliop soas, 4/5 L iliopsoas, 4+/5 bilateral hamstrings, 4+/5 bilateral quadriceps, 5/5 L tibialis anterior, 0/5 R tibialis anterior, and 5/5 gastrocnemius bilaterally. REFLEXES: Trace at biceps, triceps, brachioradialis, absent patella and absent Achilles bilaterally. Flexor plantar responses bilaterally. SENSORY: Intact to LT without extinction to double simultaneous stimuli. Vibration intact in BUEs, absent in BLEs up to the knees. COORDINATION: No dysmetria or ataxia on [id number] bilaterally. Normal Regi bilaterally. GAIT: deferred given weakness/fall risk PG Care Time/CCT Total # of Minutes Spent Total Time Spent with Patient: Total time spent is greater than 50% in coordination of care (as documented) at patient's floor/unit and/or counseling patient: Coding Level of Care Code 77880 Subseq Hosp Care Lvl 3 Diagnoses Generalized weakness R53.1 Thoracic spinal stenosis M48.04 Lumbar spinal stenosis M48.061
--- NOTE | 2019-10-13 10:18 | Pharmacy Report ---
Pharmacy Glycemic Short Note 2 - Date of Service October 13, 2019 - Glycemic Short BSG Results (Last 24 hours): 10/12/19 10/12/19 10/12/19 12:10 17:13 17:16 Glucose POC Glucose 231 H 63 L* 73 10/12/19 10/12/19 10/13/19 17:54 21:00 08:16 Glucose 96 POC Glucose 81 132 H 10/13/19 08:23 Glucose POC Glucose 99 OUTPATIENT ANTIDIABETIC REGIMEN: * None * A1c = 6.9 % (09/26/19) ASSESSMENT: * BSGs ranging 63-231 mg/dL * Received 18 units of insulin yesterday * 0 units of Lantus, 18 units of prandial/correctional * Fasting BSG of 99 mg/dL - will continue to hold basal * Will loosen CF today given BSG of 63 mg/dL yesterday after being corrected for BSG of 231 mg/dL * Maintain carb ratio PLAN FOR INPATIENT GLYCEMIC CONTROL: * Basal insulin * Hold * Bolus insulin - loosen CF, raise upper end of goal range * NovoLog per scale ACHS or Q6hrs while NPO * Goal Range: Low 110 mg/dL - High 150 mg/dL * Correction Factor: 35 mg/dL/unit * Nutritional / Prandial insulin per carb ratio of 1 unit per 7 grams CHO consumed * Consider tightening AM carb ratio tomorrow given trend of elevated BSGs prior to lunch PLAN FOR DISCHARGE: * HbA1c of 6.9% - continuing with diet control seems reasonable * Support patient self-management * Healthy Lifestyle (diet, exercise, and smoking cessation) * Prevention of complications (BP, Lipid goals, Immunizations) * Consider outpatient Diabetes Self-Management Education & Support
[2019-10-13] MEDS: DEXTROSE 5% IV SCH ×2 (11:18→21:57)
[2019-10-13] MEDS: SULFA IV SCH ×2 (11:18→21:57)
[2019-10-13] MEDS: TRIMETH IV SCH ×2 (11:18→21:57)
--- NOTE | 2019-10-13 15:55 | Hospitalist Progress Note ---
Date of Service October 13, 2019 Assessment & Plan (1) Meningitis: WBCs 551 on lumber puncture 10/10 - PCRs all negative. Awaiting Lyme PCR and [place]. 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 Continue acyclovir pending WNV result. Would also like to repeat MRI brain w/ contrast if Ms. Sanchez becomes agreeable - thus far she has declined * Neurology consulted -- appreciate assistance. * Neurology recommended fluids be given with abx to protect renal function, however I think with the amount of fluid patient is getting with the abx (over 2L a day) I will go ahead and discontinue the IVF as this will probably suffice to support the kidneys. She did have pleural effusions on her CT and is up 6L (2) Generalized weakness: Left shoulder pain and weakness on admission, limited mobility affecting ADLs s/p fall. Calcific tendinosis noted on CT imaging. * MRI LEFT shoulder with partial vs focal full thickness tear supraspinatus * Ortho consulted -- possible injection suggested but holding off given recent dental infxn * Ortho spine consulted due to multilevel multifactorial spinal stenosis noted on her MRI.-- conservative management with PT/OT. No radicular symptoms noted per note * Peripheral smear without evidence for inclusion bodies. Babesiosis pending. * Blood cultures NGTD, repeated per neuro rec 10/10 * ECHO without vegetation but cannot exclude definitively, normal EF * Meningitis treated as above (3) Left arm weakness: * See above (4) Hypothyroidism: * Chronic. Stable * TSH 1.73 * Continue Synthroid 125mcg po daily (5) HTN (hypertension): * Chronic. * BPs continue be somewhat labile - increased lisinopril to 10mg 10/10 - could titrate up further if needed * Continue prn hydralazine * Continue home metoprolol 25mg * Trop normal x 3, no complaints of chest pain or sob. (6) Fall: * See above (7) Hypokalemia: * resolved (8) Obesity, diabetes, and hypertension syndrome: * Most recent A1c 6.9 * Not on an outpatient medications -- should ideally be initiated on metformin but patient not wanting to be on additional medication at this time * Blood sugars elevated, likely partially due to dextrose in abx. Pharmacy consulted for glycemic management (9) Arthralgia of multiple sites: * See above (10) Tooth infection: * reported infection L bottom tooth -- had been attempting to get in with dentist but not yet able. Thought partial coverage with Keflex for recent LUE cellulitis * Will need follow up and possible cont'd abx. No pain with eating * continue ceftriaxone (11) Hyperlipemia: * Most recent cholesterol September 2019 -- patient should ideally be on statin given elevated cholesterol and atherosclerosis/stenosis on imaging * -- will hold off for now given generalized weakness (12) Pneumonia: * Patient with recorded Pox 74% on RA, hypoxia now resolved * CXR showed LLL infiltrate * CT chest with confirmation of infiltrate with small b/l effusions. * Continue IS * Continue Ceftriaxone, Doxy IV (13) DVT prophylaxis: * SCDs, Lovenox Admission and Anticipated Discharge Date Admission Date: October 07, 2019 Subjective Ms. Sanchez is doing much better this morning than last night, no further dysarthria. She has more strength in her arms, able to feed her herself half of her meal with her right arm today. Updated her son Ryan by phone ROS Constitutional: no chills, aches, sweats or fever Respiratory: no sob,cough, sputum, or wheezing Cardiac: no chest pain, palpitations, edema, orthopnea or lightheadedness GI: no abdominal pain, nausea, vomiting, diarrhea or constipation : no dysuria or hesitancy Extremities: generalized weakness Skin: no rash All other systems reviewed and negative Physical Exam Physical Exam: General: no distress Eyes: normal inspection, PERLL Respiratory: chest non tender, clear to auscultation, normal breath sounds, no respiratory distress, no accessory muscle use Cardiac: regular rate and rhythm, no rub or gallop, systolic murmur 2/6 LUSB, no edema, no jvd GI/: active bowel sounds, no abd pain or tenderness, soft, non distended Extremities: normal range of motion, generalized weakness with left arm weaker than right, non tender Neuro/Psych: alert and oriented x 3, normal mood and affect, left facial droop Skin: normal color, dry Results & Data Results & Data ([facility]) Vital Signs (Past 12 Hours) Vital Signs Temp Pulse Resp BP Pulse Ox 10/13/19 15:39 36.3 C L 65 18 143/83 H 95 10/13/19 05:09 36.4 C L 74 12 134/76 95 PG Care Time/CCT Total # of Minutes Spent Total Time Spent with Patient: Total time spent is greater than 50% in coordination of care (as documented) at patient's floor/unit and/or counseling patient: Coding Level of Care Code 05620 Subseq Hosp Care Lvl 3 Diagnoses Meningitis G03.9 Generalized weakness R53.1 Left arm weakness R29.898 Hypothyroidism E03.9 Hypothyroidism type: unspecified HTN (hypertension) I10 Hypertension type: essential hypertension Fall W19.XXXA Encounter type: initial encounter Hypokalemia E87.6 Obesity, diabetes, and hypertension syndrome E11.69; E11.59; E66.9; I10 Arthralgia of multiple sites M25.50 Tooth infection K04.7 Hyperlipemia E78.5 Pneumonia J18.9 DVT prophylaxis Z29.9 (1) Hypothyroidism Hypothyroidism type: unspecified Qualified Code(s): E03.9 - Hypothyroidism, unspecified (2) HTN (hypertension) Hypertension type: essential hypertension Qualified Code(s): I10 - Essential (primary) hypertension (3) Fall Encounter type: initial encounter Qualified Code(s): W19.XXXA - Unspecified fall, initial encounter
[2019-10-13] MEDS: ENOXAPARIN INJ 40 MG/0.4 ML SYR SQ SCH (18:58)
[2019-10-14] MEDS: ACYCLOVIR SOD 600 MG in DEXTROSE 5% 100 ML IV SCH ×3 (02:54→17:59)
[2019-10-14] MEDS: cefTRIAXone SODIUM 2,000 MG in DEXTROSE 5% 50 ML IV SCH (03:44)
[2019-10-14] MEDS: DICLOFENAC SOD 1% GEL 100 GM TUBE EXT SCH ×3 (05:25→22:29)
[2019-10-14] MEDS: LEVOTHYROXINE SODIUM 125 MCG TABLET PO SCH (05:30)
[2019-10-14 06:29] LABS: Hematocrit (blood only) 41.4 % (37-47); Hemoglobin 13.9 g/dL (12.0-16.0); Mean Corpuscular Hemoglobin 31.4 pg (25-34); Mean Corpuscular Hgb Conc 33.6 g/dL (32-36); Mean Corpuscular Volume 93.7 fL (80-100); Mean Platelet Volume 11.2 fL (7.4-10.4); Platelet Count 291 K/uL (130-400); RDW Coefficient of Variation 14.7 % (11.5-14.5); RDW Standard Deviation 49.4 fL (36.4-46.3); Red Blood Count 4.42 M/uL (4.2-5.4); White Blood Count 8.74 K/uL (4.8-10.8)
[2019-10-14 06:57] LABS: BUN Creatinine Ratio 25.6 (10-20); Calcium 8.1 mg/dl (8.5-10.1); Est GFR (African American) 72.9; Est GFR (Non-African American) 62.9; Potassium 3.8 mmol/L (3.5-5.1)
[2019-10-14] MEDS: POLYETHYLENE (MIRALAX) 17 GM PACK PO SCH (09:18)
[2019-10-14] MEDS: lisinopriL 10 MG TAB PO SCH (09:19)
[2019-10-14] MEDS: DOXYCYCLINE HYCLATE 100 MG CAP PO SCH (09:19)
[2019-10-14] MEDS: METOPROLOL SUCC 50MG EXT REL TAB PO SCH (09:19)
[2019-10-14] MEDS: INSULIN ASPART 100 UNITS/ML 3 ML PEN SC SCH ×4 (09:21→21:21)
[2019-10-14] MEDS: DEXTROSE 5% IV SCH (10:57)
[2019-10-14] MEDS: SULFA IV SCH (10:57)
[2019-10-14] MEDS: TRIMETH IV SCH (10:57)
--- NOTE | 2019-10-14 13:17 | Pharmacy Report ---
Pharmacy Glycemic Short Note 2 - Date of Service October 14, 2019 - Glycemic Short BSG Results (Last 24 hours): 10/13/19 10/13/19 10/13/19 17:20 17:22 20:56 Glucose POC Glucose 66 L* 74 113 H 10/14/19 10/14/19 10/14/19 05:35 08:07 12:12 Glucose 101 H POC Glucose 98 258 H OUTPATIENT ANTIDIABETIC REGIMEN: * None * A1c = 6.9 % (09/26/19) ASSESSMENT: * BSGs ranging 66-219 mg/dL * Received 15 units of insulin yesterday * 0 units of Lantus, 15 units of prandial/correctional * Fasting BSG of 98 mg/dL - will continue to hold basal * Will utilize tightened carb ratio with breakfast, as patient's BSGs tend to be highest before lunchtime * Observed trend of overcorrecting elevated BSG at lunchtime leading to lows at dinner - will increase upper end of goal range and further loosen CF * Elevated BSGs most likely due to significant dextrose content in IV antibiotics * May need to loosen Novolog parameters once antibiotics are de-escalated PLAN FOR INPATIENT GLYCEMIC CONTROL: * Basal insulin * Hold * Bolus insulin - tighten breakfast carb ratio, loosen CF, raise upper end of goal range * NovoLog per scale ACHS or Q6hrs while NPO * Goal Range: Low 100 mg/dL - High 160 mg/dL * Correction Factor: 45 mg/dL/unit * Nutritional / Prandial insulin per carb ratio of 1 unit per 6 grams CHO consumed at breakfast * Nutritional / Prandial insulin per carb ratio of 1 unit per 7 grams CHO consumed at lunch, dinner, and bedtime PLAN FOR DISCHARGE: * HbA1c of 6.9% - continuing with diet control seems reasonable * Based on age and comorbidities - a reasonable A1c goal for AB is < 8% * Support patient self-management * Healthy Lifestyle (diet, exercise, and smoking cessation) * Prevention of complications (BP, Lipid goals, Immunizations) * Consider outpatient Diabetes Self-Management Education & Support
--- NOTE | 2019-10-14 15:47 | Hospitalist Progress Note ---
Date of Service October 14, 2019 Assessment & Plan (1) Meningitis: WBCs 551 on lumber puncture 10/10 - PCRs all negative. Awaiting Lyme PCR and [place]. 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 Continue acyclovir pending WNV result. Would also like to repeat MRI brain w/ contrast if Ms. Sanchez becomes agreeable - thus far she has declined * Neurology consulted -- appreciate assistance. * Neurology recommended fluids be given with abx to protect renal function, however I think with the amount of fluid patient is getting with the abx (over 2L a day) I will go ahead and discontinue the IVF as this will probably suffice to support the kidneys. She did have pleural effusions on her CT and is up 6L - On 10/13, she is improving. Will stop Bactrim and doxycycline per neurology recs. Will need 3 weeks ceftriaxone and 2 weeks of acyclovir. (2) Generalized weakness: Left shoulder pain and weakness on admission, limited mobility affecting ADLs s/p fall. Calcific tendinosis noted on CT imaging. - Extensive work-up with ortho and ortho spine. Nothing acute inpatient needed. - Likely due to meningitis treated as above (3) HTN (hypertension): BP is 135/70 today. BPs continue be somewhat labile - increased lisinopril to 10mg 10/10 - could titrate up further if needed. - Continue lisinopril, metoprolol - Continue hydralazine PRN (4) Diabetes: Most recent A1c 6.9%. Not on an outpatient medications -- should ideally be initiated on metformin but patient not wanting to be on additional medication at this time. - Sliding scale insulin - Glycemic pharmacy following (5) Hypothyroidism: Chronic. Stable. TSH 1.73. - Continue Synthroid 125mcg po daily (6) Tooth infection: Reported infection left bottom tooth -- had been attempting to get in with dentist but not yet able. Thought partial coverage with Keflex for recent LUE cellulitis. - Will need follow up and possible cont'd abx. No pain with eating. - Continue ceftriaxone for meningitis (7) Hyperlipemia: Most recent cholesterol was 210 September 2019 - patient should ideally be on statin given elevated cholesterol and atherosclerosis/stenosis on imaging. - Will hold off for now given generalized weakness (8) Pneumonia: Patient with recorded Pox of 74% on RA, hypoxia now resolved. - CT chest on 10/07 with LLL and RLL infiltrates with small b/l effusions. - Continue ceftriaxone. - Finished doxycycline on 10/14. (9) DVT prophylaxis: SCDs, Lovenox Admission and Anticipated Discharge Date Admission Date: October 07, 2019 Subjective Weak, but stronger today. No major concerns at present. Reports no fevers/chills, chest pain, shortness of breath, abdominal pain, nausea, or vomiting. Physical Exam Constitutional: WD/WN, vitals as above Eyes: EOM intact bilaterally; no conjunctival abnormality ENMT: external ear and nose normal, oropharynx normal Neck: trachea midline, no thyromegaly normal visual inspection Respiratory: normal respiratory effort, lungs clear to auscultation no respiratory distress Cardiovascular: RRR, no murmur, no edema Gastrointestinal (Abdomen): Inspection/Auscultation: abdomen normal to inspection; abdomen not distended Musculoskeletal: Extremities: + abnormal muscle tone (Limited strength in shoulders) Skin: no rashes, warm and dry Neurologic: moves all extremities and awake Psychiatric: Orientation: alert, oriented to person and cooperative Results & Data Results & Data ([facility]) Vital Signs (Past 12 Hours) Vital Signs Temp Pulse Pulse Resp BP Pulse Ox 10/14/19 08:22 36.8 C 65 18 134/72 96 10/14/19 07:23 87 19 97 10/14/19 04:51 36.8 C 68 12 128/72 95 PG Care Time/CCT Total # of Minutes Spent Total Time Spent with Patient: Total time spent is greater than 50% in coordination of care (as documented) at patient's floor/unit and/or counseling patient: Coding Level of Care Code 65179 Subseq Hosp Care Lvl 2 Diagnoses Meningitis G03.9 Generalized weakness R53.1 HTN (hypertension) I10 Hypertension type: essential hypertension Diabetes E11.9 Hypothyroidism E03.9 Hypothyroidism type: unspecified Tooth infection K04.7 Hyperlipemia E78.5 Pneumonia J18.9 DVT prophylaxis Z29.9 (1) Hypothyroidism Hypothyroidism type: unspecified Qualified Code(s): E03.9 - Hypothyroidism, unspecified (2) HTN (hypertension) Hypertension type: essential hypertension Qualified Code(s): I10 - Essential (primary) hypertension
--- NOTE | 2019-10-14 16:10 | Neurology Progress Note ---
Date of Service October 14, 2019 Assessment & Plan (1) Generalized weakness: Colleen Sanchez is an 79 yo woman w/ PMH of hypertension, prediabetes, hypothyroidism, anxiety, obesity, chronic right foot drop and recent tooth infection who presents to [facility] with subacute proximal weakness, worse on the left than the right, that has progressed over the last month. #Meningitis c/b generalized weakness: most c/f WNV vs tickborne encephalitis, less likely insidious fungal infection like crypto or Listeria. Unfortunately, abx started more than 24 hours before LP so yield of organism may be low (assuming coverage by ceftriaxone/doxycycline). Has baseline severe BLE neuropathy and bilateral knee replacements complicating picture of her gait. - recommend continuing IV ceftriaxone for the full duration of TMH TEACHER disease treatment (usually 21 days) - would continue IV acyclovir pending WNV result (if negative, ok to discontinue) - would like to repeat MRI brain w/ contrast when able/pt ok to do to see if the diffusion restriction is resolving (related more to infection) or if it represents an evolving infarct. Ok to do this as an outpatient with an open MRI as long as no significant decompensation neurologically. - follow up in 3-6 weeks with neurology (can be a telehealth visit or virtual check in) #Possible delirium: Improved, no further AMS noted. Would do standard delirium precautions with lights on during day, lights off at night, frequent reorientation and avoidance of benzos/opiates as able to. Thank you for this interesting consult. Plan of care discussed with primary team. Please call or text with questions. (2) Thoracic spinal stenosis: (3) Lumbar spinal stenosis: (4) Meningitis: (5) Idiopathic polyneuropathy: Admission and Anticipated Discharge Date Admission Date: October 07, 2019 Anticipated date of discharge: 10/07/19 Subjective Reports having onset of loose stools overnight. Feeling a bit better otherwise, able to sit at the edge of the bed and was able to ambulate with walker with PT today. Denies any other new neurological symptoms including new numbness, tingling or weakness. Review of Systems Review of Systems: 14 point review of systems completed and negative except as in HPI. Results & Data ([facility]) Vital Signs (Past 12 Hours) Vital Signs Temp Pulse Pulse Resp BP Pulse Ox 10/14/19 08:22 36.8 C 65 18 134/72 96 10/14/19 07:23 87 19 97 10/14/19 04:51 36.8 C 68 12 128/72 95 Exam (Neuro) Physical Exam: General Exam: GEN: NAD, sitting in bed. HEENT: No conjunctival injection, no rhinorrhea. CV: RRR, no peripheral edema PULM: Nonlabored respirations on room air. Neuro Exam: MS: Alert, awake. Oriented to person, place, and month/year. Speech fluent and appropriate with mild dysarthria, no paraphasic errors. Language intact incl uding naming, comprehension, repetition. Cognition and memory grossly intact. More attentive. No neglect. CN: Visual velazquez full. No extinction to double simultaneous stimuli. No optic disc edema on fundoscopic exam. PERRLA OU. EOMI without nystagmus. Facial sensation intact to LT. Left facial droop. Hearing intact to conversation. Uvula midline with symmetric palatal elevation. Shoulder shrug normal. Tongue midline. Ptosis resolved. Able to elevate head from bed. MOTOR: Normal bulk, decreased tone in BUEs. Unable to assess pronator drift due BUE weakness. BUE strength 4/5 at deltoids, 4-/5 R biceps, 4-/5 L biceps, 4-/5 bilateral triceps, and 5-/5 hand grasp bilaterally. BLE strength 4/5 at R iliopsoas, 4/5 L iliopsoas, 4+/5 bilateral hamstrings, 4+/5 bilateral quadriceps, 5/5 L tibialis anterior, 0/5 R tibialis anterior, and 5/5 gastrocnemius bilaterally. REFLEXES: Trace at biceps, triceps, brachioradialis, absent patella and absent Achilles bilaterally. Flexor plantar responses bilaterally. SENSORY: Intact to LT without extinction to double simultaneous stimuli. Vibration intact in BUEs, absent in BLEs up to the knees. COORDINATION: No dysmetria or ataxia on [id number] bilaterally. Normal Regi bilaterally. GAIT: deferred given weakness/fall risk PG Care Time/CCT Total # of Minutes Spent Total Time Spent with Patient: Total time spent is greater than 50% in coordination of care (as documented) at patient's floor/unit and/or counseling patient: Coding Level of Care Code 09555 Subseq Hosp Care Lvl 3 Diagnoses Generalized weakness R53.1 Thoracic spinal stenosis M48.04 Lumbar spinal stenosis M48.061 Meningitis G03.9 Idiopathic polyneuropathy G60.9
[2019-10-14] MEDS: SACCHAROMYCES BOULARDII 250 MG CAP PO SCH (17:51)
[2019-10-14] MEDS: ENOXAPARIN INJ 40 MG/0.4 ML SYR SQ SCH (18:05)
[2019-10-15] MEDS: ACYCLOVIR SOD 600 MG in DEXTROSE 5% 100 ML IV SCH ×3 (02:47→17:57)
[2019-10-15] MEDS: DICLOFENAC SOD 1% GEL 100 GM TUBE EXT SCH ×4 (05:54→21:19)
[2019-10-15] MEDS: LEVOTHYROXINE SODIUM 125 MCG TABLET PO SCH (05:54)
[2019-10-15 06:23] LABS: Hematocrit (blood only) 38.7 % (37-47); Hemoglobin 13.3 g/dL (12.0-16.0); Mean Corpuscular Hgb Conc 34.4 g/dL (32-36); Mean Platelet Volume 10.6 fL (7.4-10.4); Platelet Count 266 K/uL (130-400); RDW Coefficient of Variation 14.9 % (11.5-14.5); RDW Standard Deviation 50.1 fL (36.4-46.3); Red Blood Count 4.16 M/uL (4.2-5.4); White Blood Count 8.74 K/uL (4.8-10.8)
[2019-10-15 06:49] LABS: BUN Creatinine Ratio 27.2 (10-20); Calcium 8.6 mg/dl (8.5-10.1); Est GFR (African American) 72.9; Est GFR (Non-African American) 62.9; Magnesium 1.8 mg/dl (1.8-2.4); Potassium 3.3 mmol/L (3.5-5.1)
[2019-10-15] MEDS: cefTRIAXone SODIUM 2,000 MG in DEXTROSE 5% 50 ML IV SCH ×2 (07:24→08:59)
[2019-10-15] MEDS ORDERED: POTASSIUM CHLORIDE 20 MEQ TABCR PO STA (07:50)
[2019-10-15] MEDS: INSULIN ASPART 100 UNITS/ML 3 ML PEN SC SCH ×4 (08:55→20:51)
[2019-10-15] MEDS: lisinopriL 10 MG TAB PO SCH (08:57)
[2019-10-15] MEDS: METOPROLOL SUCC 50MG EXT REL TAB PO SCH (08:58)
[2019-10-15] MEDS: SACCHAROMYCES BOULARDII 250 MG CAP PO SCH (08:58)
[2019-10-15] MEDS ORDERED: INSULIN GLARGINE SOLOSTAR 100 UNITS/ML 3 ML PEN SC SCH (09:00)
[2019-10-15] MEDS: POLYETHYLENE (MIRALAX) 17 GM PACK PO SCH (09:11)
--- NOTE | 2019-10-15 09:46 | Pharmacy Report ---
Pharmacy Glycemic Short Note 2 - Date of Service October 15, 2019 - Glycemic Short BSG Results (Last 24 hours): 10/14/19 10/14/19 10/14/19 12:12 17:22 17:24 Glucose POC Glucose 258 H 68 L* 66 L* 10/14/19 10/14/19 10/15/19 17:55 20:09 05:41 Glucose 174 H POC Glucose 74 122 H 10/15/19 08:49 Glucose POC Glucose 134 H OUTPATIENT ANTIDIABETIC REGIMEN: * None * A1c = 6.9 % (09/26/19) (diagnostic for DM) ASSESSMENT: * Pt has received 14 units of insulin over the past 24hrs * 0 units of basal * 14 units of bolus insulin * Pt with LOW BSG yesterday prior to dinner secondary to 12 units of NovoLog given at lunch per parameters. Will loosen NovoLog parameters to prevent repeat low. * AM fasting BSG trending upwards. GLU 174 mg/dl this AM. Pt may benefit from a small dose of basal insulin to help stabilize BSGs and lower AM fasting. * Antibiotics de-escalated yesterday - Bactrim DC; was mixed in 500ml of dextrose providing 25g CHO per dose (BID dosing @ 1100 & 2200). * This may have been contributing to pre-lunch BSG elevation which would then be corrected by NovoLog --> leading to LOW at dinner. * This should stabilize today since bactrim DC PLAN FOR INPATIENT GLYCEMIC CONTROL: * Basal insulin * Start tiny dose of Lantus 5 units SQ daily for elevated AM fasting BSG * Bolus insulin - loosen parameters * NovoLog per scale ACHS or Q6hrs while NPO * Goal Range: Low 100 mg/dL - High 160 mg/dL * Correction Factor: 45 mg/dL/unit * Nutritional / Prandial insulin per carb ratio of 1 unit per 15 grams CHO PLAN FOR DISCHARGE: * HbA1c of 6.9% - continuing with diet control seems reasonable * Based on age and comorbidities - a reasonable A1c goal for AB is < 8% * Support patient self-management * Healthy Lifestyle (diet, exercise, and smoking cessation) * Prevention of complications (BP, Lipid goals, Immunizations) * Consider outpatient Diabetes Self-Management Education & Support
--- NOTE | 2019-10-15 13:41 | Hospitalist Progress Note ---
Date of Service October 15, 2019 Assessment & Plan (1) Meningitis: WBCs 551 on lumber puncture 10/10 - PCRs all negative. Awaiting Lyme PCR and [place]. 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 Continue acyclovir pending WNV result. Would also like to repeat MRI brain w/ contrast if Ms. Sanchez becomes agreeable - thus far she has declined * Neurology consulted -- appreciate assistance. * Neurology recommended fluids be given with abx to protect renal function, however I think with the amount of fluid patient is getting with the abx (over 2L a day) I will go ahead and discontinue the IVF as this will probably suffice to support the kidneys. She did have pleural effusions on her CT and is up 6L - On 10/14, she is improving. Stopped Bactrim and doxycycline per neurology recs on 10/13. - Awaiting Lyme CSF PCR & [place] virus CSF PCR -> If one or the other is positive, can further taper either ceftriaxone or acyclovir. If nothing positive, will need ceftriaxone x 28 days and acyclovir x 14 days. (2) Generalized weakness: Left shoulder pain and weakness on admission, limited mobility affecting ADLs s/p fall. Calcific tendinosis noted on CT imaging. - Extensive work-up with ortho and ortho spine. Nothing acute inpatient needed. - Likely due to meningitis treated as above (3) HTN (hypertension): BP is 135/65 today. BPs continue be somewhat labile - increased lisinopril to 10mg 10/10 - could titrate up further if needed. - Continue lisinopril, metoprolol - Continue hydralazine PRN -> Stable today. (4) Diabetes: Most recent A1c 6.9%. Not on an outpatient medications -- should ideally be initiated on metformin but patient not wanting to be on additional medication at this time. - Sliding scale insulin - Glycemic pharmacy following (5) Hypothyroidism: Chronic. Stable. TSH 1.73. - Continue Synthroid 125mcg po daily (6) Tooth infection: Reported infection left bottom tooth -- had been attempting to get in with dentist but not yet able. Thought partial coverage with Keflex for recent LUE cellulitis. - Will need follow up and possible cont'd abx. No pain with eating. - Continue ceftriaxone for meningitis (7) Hyperlipemia: Most recent cholesterol was 210 September 2019 - patient should ideally be on statin given elevated cholesterol and atherosclerosis/stenosis on imaging. - Will hold off for now given generalized weakness (8) Pneumonia: Patient with recorded Pox of 74% on RA, hypoxia now resolved. - CT chest on 10/07 with LLL and RLL infiltrates with small b/l effusions. - Continue ceftriaxone for meningitis. - Finished doxycycline on 10/13. (9) DVT prophylaxis: SCDs, Lovenox Admission and Anticipated Discharge Date Admission Date: October 07, 2019 Subjective Doing well today. In a chair which is the best she's been since coming to the hospital. Reports no fevers/chills, chest pain, shortness of breath, abdominal pain, nausea, or vomiting. Physical Exam Constitutional: WD/WN, vitals as above Eyes: EOM intact bilaterally; no conjunctival abnormality ENMT: external ear and nose normal, oropharynx normal Neck: trachea midline, no thyromegaly normal visual inspection Respiratory: normal respiratory effort, lungs clear to auscultation no respiratory distress Cardiovascular: RRR, no murmur, no edema Gastrointestinal (Abdomen): Inspection/Auscultation: abdomen normal to inspect ion; abdomen not distended Musculoskeletal: no cyanosis or clubbing, extremities motor strength 5/5 Extremities: + abnormal muscle tone (Limited strength in shoulders & triceps) Skin: no rashes, warm and dry Neurologic: moves all extremities and awake Psychiatric: Orientation: alert, oriented to person and cooperative Results & Data Results & Data ([facility]) Vital Signs (Past 12 Hours) Vital Signs Temp Pulse Resp BP Pulse Ox 10/15/19 08:37 36.6 C 64 16 135/64 94 PG Care Time/CCT Total # of Minutes Spent Total Time Spent with Patient: Total time spent is greater than 50% in coordination of care (as documented) at patient's floor/unit and/or counseling patient: Coding Level of Care Code 92256 Subseq Hosp Care Lvl 2 Diagnoses Meningitis G03.9 Generalized weakness R53.1 HTN (hypertension) I10 Hypertension type: essential hypertension Diabetes E11.9 Hypothyroidism E03.9 Hypothyroidism type: unspecified Tooth infection K04.7 Hyperlipemia E78.5 Pneumonia J18.9 DVT prophylaxis Z29.9 (1) HTN (hypertension) Hypertension type: essential hypertension Qualified Code(s): I10 - Essential (primary) hypertension (2) Hypothyroidism Hypothyroidism type: unspecified Qualified Code(s): E03.9 - Hypothyroidism, unspecified
[2019-10-15] MEDS: ENOXAPARIN INJ 40 MG/0.4 ML SYR SQ SCH (20:57)
[2019-10-15 22:42] LABS: West Nile Virus, PCR, CSF Not Detected (Not Detected)
[2019-10-16] MEDS: ACYCLOVIR SOD 600 MG in DEXTROSE 5% 100 ML IV SCH ×3 (02:46→18:59)
[2019-10-16] MEDS: LEVOTHYROXINE SODIUM 125 MCG TABLET PO SCH (05:18)
[2019-10-16] MEDS: DICLOFENAC SOD 1% GEL 100 GM TUBE EXT SCH ×3 (05:19→21:44)
[2019-10-16 06:45] LABS: BUN Creatinine Ratio 38.4 (10-20); Creatinine Clr Calc Pharmacy 82.7 ml/min; Est GFR (African American) 99.8; Est GFR (Non-African American) 86.1; Potassium 3.6 mmol/L (3.5-5.1)
[2019-10-16] MEDS: lisinopriL 10 MG TAB PO SCH (08:08)
[2019-10-16] MEDS: SACCHAROMYCES BOULARDII 250 MG CAP PO SCH (08:08)
[2019-10-16] MEDS: METOPROLOL SUCC 50MG EXT REL TAB PO SCH (08:09)
[2019-10-16] MEDS: POLYETHYLENE (MIRALAX) 17 GM PACK PO SCH (08:09)
[2019-10-16] MEDS: INSULIN GLARGINE SOLOSTAR 100 UNITS/ML 3 ML PEN SC SCH (08:13)
[2019-10-16] MEDS: INSULIN ASPART 100 UNITS/ML 3 ML PEN SC SCH ×4 (08:26→22:22)
[2019-10-16] MEDS: cefTRIAXone SODIUM 2,000 MG in DEXTROSE 5% 50 ML IV SCH (08:30)
--- NOTE | 2019-10-16 09:29 | Pharmacy Report ---
Pharmacy Glycemic Short Note 2 - Date of Service October 16, 2019 - Glycemic Short BSG Results (Last 24 hours): 10/15/19 10/15/19 10/15/19 12:07 17:23 20:43 Glucose POC Glucose 110 H 109 H 157 H 10/16/19 10/16/19 05:36 08:14 Glucose 100 H POC Glucose 100 H OUTPATIENT ANTIDIABETIC REGIMEN: * None * A1c = 6.9 % (09/26/19) (diagnostic for DM) ASSESSMENT: 10/16/19: * Pt has received 9 units of insulin over the past 24hrs * 5 units of basal * 4 units of bolus insulin (Minimal PO intake yesterday) * BSGs [phone] * Will decrease basal insulin slightly (from 5 to 4 units) for decreased P intake and AM fasting BSG on the low end of the goal range at 100 mg/dl this AM 10/15/19: * Pt has received 14 units of insulin over the past 24hrs * 0 units of basal * 14 units of bolus insulin * Pt with LOW BSG yesterday prior to dinner secondary to 12 units of NovoLog given at lunch per parameters. Will loosen NovoLog parameters to prevent repeat low. * AM fasting BSG trending upwards. GLU 174 mg/dl this AM. Pt may benefit from a small dose of basal insulin to help stabilize BSGs and lower AM fasting. * Antibiotics de-escalated yesterday - Bactrim DC; was mixed in 500ml of dextrose providing 25g CHO per dose (BID dosing @ 1100 & 2200). * This may have been contributing to pre-lunch BSG elevation which would then be corrected by NovoLog --> leading to LOW at dinner. * This should stabilize today since bactrim DC PLAN FOR INPATIENT GLYCEMIC CONTROL: * Basal insulin * Decrease Lantus from 5 to 4 units SQ daily * Bolus insulin - no change * NovoLog per scale ACHS or Q6hrs while NPO * Goal Range: Low 100 mg/dL - High 160 mg/dL * Correction Factor: 45 mg/dL/unit * Nutritional / Prandial insulin per carb ratio of 1 unit per 15 grams CHO PLAN FOR DISCHARGE: * HbA1c of 6.9% - continuing with diet control seems reasonable * Based on age and comorbidities - a reasonable A1c goal for AB is < 8% * Support patient self-management * Healthy Lifestyle (diet, exercise, and smoking cessation) * Prevention of complications (BP, Lipid goals, Immunizations) * Consider outpatient Diabetes Self-Management Education & Support
--- NOTE | 2019-10-16 13:04 | Hospitalist Progress Note ---
Date of Service October 16, 2019 Assessment & Plan (1) Meningitis: WBCs 551 on lumber puncture 10/10 - PCRs all negative. Awaiting Lyme PCR and [place]ile. 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 Continue acyclovir pending WNV result. Would also like to repeat MRI brain w/ contrast if Ms. Sanchez becomes agreeable - thus far she has declined * Neurology consulted -- appreciate assistance. * Neurology recommended fluids be given with abx to protect renal function, however I think with the amount of fluid patient is getting with the abx (over 2L a day) I will go ahead and discontinue the IVF as this will probably suffice to support the kidneys. She did have pleural effusions on her CT and is up 6L - On 10/14, she is improving. Stopped Bactrim and doxycycline per neurology recs on 10/13. - Awaiting Lyme CSF PCR & West Nile virus CSF PCR -> If one or the other is positive, can further taper either ceftriaxone or acyclovir. If nothing positive, will need ceftriaxone x 28 days and acyclovir x 14 days. - Improving today. In chair. Continue plan. (2) Generalized weakness: Left shoulder pain and weakness on admission, limited mobility affecting ADLs s/p fall. Calcific tendinosis noted on CT imaging. - Extensive work-up with ortho and ortho spine. Nothing acute inpatient needed. - Likely due to meningitis treated as above (3) HTN (hypertension): BPs continue be somewhat labile - increased lisinopril to 10mg on 10/10 - could titrate up further if needed. - Continue lisinopril, metoprolol - Continue hydralazine PRN -> Stable today at 160/80. (4) Diabetes: Most recent A1c 6.9%. Not on an outpatient medications -- should ideally be initiated on metformin but patient not wanting to be on additional medication at this time. - Sliding scale insulin - Glycemic pharmacy following (5) Hypothyroidism: Chronic. Stable. TSH 1.73. - Continue Synthroid 125mcg po daily (6) Tooth infection: Reported infection left bottom tooth -- had been attempting to get in with dentist but not yet able. Thought partial coverage with Keflex for recent LUE cellulitis. - Will need follow up and possible cont'd abx. No pain with eating. - Continue ceftriaxone for meningitis (7) Hyperlipemia: Most recent cholesterol was September 2019 - patient should ideally be on statin given elevated cholesterol and atherosclerosis/stenosis on imaging. - Will hold off for now given generalized weakness (8) Pneumonia: Patient with recorded Pox of 74% on RA, hypoxia now resolved. - CT chest on 10/07 with LLL and RLL infiltrates with small b/l effusions. - Continue ceftriaxone for meningitis. - Finished doxycycline on 10/13. Respiratory status stable. (9) DVT prophylaxis: SCDs, Lovenox Admission and Anticipated Discharge Date Admission Date: October 07, 2019 Subjective Doing better today. Out of bed already. Reports no fevers/chills, chest pain, shortness of breath, abdominal pain, nausea, or vomiting. Physical Exam Constitutional: WD/WN, vitals as above Eyes: EOM intact bilaterally; no conjunctival abnormality ENMT: external ear and nose normal, oropharynx normal Neck: trachea midline, no thyromegaly normal visual inspection Respiratory: normal respiratory effort, lungs clear to auscultation no respiratory distress Cardiovascular: RRR, no murmur, no edema Gastrointestinal (Abdomen): Inspection/Auscultation: abdomen normal to inspection; abdomen not distended Musculoskeletal: no cyanosis or clubbing, extremities motor strength 5/5 Extremities: + abnormal muscle tone (Limited strength in shoulders & triceps) Skin: no rashes, warm and dry Neurologic: moves all extremities and awake Psychiatric: Orientation: alert, oriented to person and cooperative Results & Data Results & Data ([facility]) Vital Signs (Past 12 Hours) Vital Signs Temp Pulse Pulse Resp BP Pulse Ox 10/16/19 08:11 64 160/78 H 10/16/19 07:30 36.6 C 64 20 162/73 H 97 PG Care Time/CCT Total # of Minutes Spent Total Time Spent with Patient: Total time spent is greater than 50% in coordination of care (as documented) at patient's floor/unit and/or counseling patient: Coding Level of Care Code 25561 Subseq Hosp Care Lvl 2 Diagnoses Meningitis G03.9 Generalized weakness R53.1 HTN (hypertension) I10 Hypertension type: essential hypertension Diabetes E11.9 Hypothyroidism E03.9 Hypothyroidism type: unspecified Tooth infection K04.7 Hyperlipemia E78.5 Pneumonia J18.9 DVT prophylaxis Z29.9 (1) HTN (hypertension) Hypertension type: essential hypertension Qualified Code(s): I10 - Essential (primary) hypertension (2) Hypothyroidism Hypothyroidism type: unspecified Qualified Code(s): E03.9 - Hypothyroidism, unspecified
[2019-10-16] MEDS: ENOXAPARIN INJ 40 MG/0.4 ML SYR SQ SCH (18:59)
[2019-10-17] MEDS: ACYCLOVIR SOD 600 MG in DEXTROSE 5% 100 ML IV SCH ×3 (03:19→17:41)
[2019-10-17 06:17] LABS: Hematocrit (blood only) 39.4 % (37-47); Hemoglobin 13.1 g/dL (12.0-16.0); Mean Corpuscular Hemoglobin 31.6 pg (25-34); Mean Corpuscular Hgb Conc 33.2 g/dL (32-36); Mean Corpuscular Volume 94.9 fL (80-100); Mean Platelet Volume 10.8 fL (7.4-10.4); Platelet Count 267 K/uL (130-400); RDW Coefficient of Variation 14.7 % (11.5-14.5); RDW Standard Deviation 50.8 fL (36.4-46.3); Red Blood Count 4.15 M/uL (4.2-5.4)
[2019-10-17] MEDS: LEVOTHYROXINE SODIUM 125 MCG TABLET PO SCH (06:31)
[2019-10-17] MEDS: DICLOFENAC SOD 1% GEL 100 GM TUBE EXT SCH ×3 (06:32→21:19)
[2019-10-17 06:50] LABS: BUN Creatinine Ratio 34.6 (10-20); Calcium 8.8 mg/dl (8.5-10.1); Est GFR (African American) 101.5; Est GFR (Non-African American) 87.6; Phosphorus 2.8 mg/dl (2.5-4.9); Potassium 3.4 mmol/L (3.5-5.1)
[2019-10-17] MEDS: cefTRIAXone SODIUM 2,000 MG in DEXTROSE 5% 50 ML IV SCH (08:27)
[2019-10-17] MEDS: POLYETHYLENE (MIRALAX) 17 GM PACK PO SCH (08:28)
[2019-10-17] MEDS: INSULIN GLARGINE SOLOSTAR 100 UNITS/ML 3 ML PEN SC SCH (08:29)
[2019-10-17] MEDS: INSULIN ASPART 100 UNITS/ML 3 ML PEN SC SCH ×4 (08:31→21:17)
[2019-10-17] MEDS: lisinopriL 10 MG TAB PO SCH (08:39)
[2019-10-17] MEDS: METOPROLOL SUCC 50MG EXT REL TAB PO SCH (08:39)
[2019-10-17] MEDS: SACCHAROMYCES BOULARDII 250 MG CAP PO SCH (08:40)
--- NOTE | 2019-10-17 09:15 | Pharmacy Report ---
Pharmacy Glycemic Short Note 2 - Date of Service October 17, 2019 - Glycemic Short BSG Results (Last 24 hours): 10/16/19 10/16/19 10/16/19 12:20 17:13 20:39 Glucose POC Glucose 139 H 98 160 H 10/17/19 10/17/19 05:33 08:08 Glucose 169 H POC Glucose 147 H OUTPATIENT ANTIDIABETIC REGIMEN: * None * A1c = 6.9 % (09/26/19) (diagnostic for DM) ASSESSMENT: * Pt has received 9 units of insulin over the past 24hrs * 4 units of basal insulin * 5 units of prandial/correctional insulin * BSGs ranging 98-160 mg/dL * BSGs have been much better controlled and patient is requiring much less insulin since discontinuation of IV sulfamethoxazole/trimethoprim (mixed in 500 mL of dextrose) * Continues on empiric ceftriaxone 2 g IV q24h and Acyclovir 600 mg IV q8h for suspected meningitis vs. tickborne encephalitis PLAN FOR INPATIENT GLYCEMIC CONTROL: * Basal insulin - continue * Lantus 4 units SC daily * Bolus insulin - continue * NovoLog per scale ACHS or Q6hrs while NPO * Goal Range: Low 100 mg/dL - High 160 mg/dL * Correction Factor: 45 mg/dL/unit * Nutritional / Prandial insulin per carb ratio of 1 unit per 15 grams CHO PLAN FOR DISCHARGE: * HbA1c of 6.9% - continuing with diet control seems reasonable * Based on age and comorbidities - a reasonable A1c goal for AB is < 8% * Support patient self-management * Healthy Lifestyle (diet, exercise, and smoking cessation) * Prevention of complications (BP, Lipid goals, Immunizations) * Consider outpatient Diabetes Self-Management Education & Support
--- NOTE | 2019-10-17 09:39 | Hospitalist Progress Note ---
Date of Service October 17, 2019 Assessment & Plan (1) Meningitis: WBCs 551 on lumber puncture 10/10 - PCRs all negative. 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 Would also like to repeat MRI brain w/ contrast if Ms. Sanchez becomes agreeable - thus far she has declined * Neurology consulted -- appreciate assistance. * Neurology recommended fluids be given with abx to protect renal function, however I think with the amount of fluid patient is getting with the abx (over 2L a day) I will go ahead and discontinue the IVF as this will probably suffice to support the kidneys. She did have pleural effusions on her CT and is up 6L (2) Generalized weakness: Left shoulder pain and weakness on admission, limited mobility affecting ADLs s/p fall. Calcific tendinosis noted on CT imaging. - Extensive work-up with ortho and ortho spine. Nothing acute inpatient needed. - Likely due to meningitis, lyme neuritis (3) HTN (hypertension): BPs continue be somewhat labile - increased lisinopril to 10mg on 10/10 - could titrate up further if needed. - Continue lisinopril, metoprolol - Continue hydralazine PRN (4) Diabetes: Most recent A1c 6.9%. Not on an outpatient medications -- should ideally be initiated on metformin but patient not wanting to be on additional medication at this time. - Sliding scale insulin - Glycemic pharmacy following (5) Hypothyroidism: Chronic. Stable. TSH 1.73. - Continue Synthroid 125mcg po daily (6) Tooth infection: Reported infection left bottom tooth -- had been attempting to get in with dentist but not yet able. Thought partial coverage with Keflex for recent LUE cellulitis. -imprioved with antibiotics - Continue ceftriaxone for meningitis (7) Hyperlipemia: Most recent cholesterol was 210 September 2019 - patient should ideally be on statin given elevated cholesterol and atherosclerosis/stenosis on imaging. - Will hold off for now given generalized weakness (8) Pneumonia: Patient with recorded Pox of 74% on RA, hypoxia now resolved. - CT chest on 10/07 with LLL and RLL infiltrates with small b/l effusions. - Continue ceftriaxone for meningitis. - Finished doxycycline on 10/13. Respiratory status stable. (9) DVT prophylaxis: SCDs, Lovenox Admission and Anticipated Discharge Date Admission Date: October 07, 2019 Subjective Patient still with profound shoulder girdle weakness she has improving leg weakness. I did review the fact that her West Nile virus is negative Review of Systems Review of Systems: Mild distress and fatigue no headache, blurry or double vision no speech or swallowing issues no chest pain, pressure or palpitations no shortness of breath, cough or wheezes no abdominal pain, nausea or vomiting, diarrhea or constipation no dysuria, hematuria or frequency no focal joint pain or swelling no back pain, CVA tenderness or radicular pain no bruising, bleeding or rashes Remains with shoulder girdle weakness no complaints or anxiety or depression. Physical Exam Physical Exam: The patient appeared well nourished and normally developed. Vital signs as documented. Head exam is normocephalic atraumatic no scleral icterus Neck is without JVD, thyromegaly, or carotid bruits. Lungs are clear to auscultation, no focal loss of breath sounds Cardiac exam, Rhythm is regular.. No murmurs, rubs or gallops. Abdominal exam reveals normal bowel sounds, soft non tender, no masses Extremities are nonedematous and both pedal pulses are normal. Neurologic exam is alert and oriented, continues with focal shoulder weakness Skin is without bruises or rashes Psychologically is without concerns for anxiety or depression Results & Data Results & Data ([facility]) Vital Signs (Past 12 Hours) Vital Signs Temp Pulse Resp BP Pulse Ox 10/17/19 07:20 98.2 F 65 16 137/72 94 10/16/19 23:05 97.9 F 67 16 150/71 H 95 PG Care Time/CCT Total # of Minutes Spent Total Time Spent with Patient: Total time spent is greater than 50% in coordination of care (as documented) at patient's floor/unit and/or counseling patient: Coding Level of Care Code 31733 Subseq Hosp Care Lvl 3 Diagnoses Meningitis G03.9 Generalized weakness R53.1 HTN (hypertension) I10 Hypertension type: essential hypertension Diabetes E11.9 Hypothyroidism E03.9 Hypothyroidism type: unspecified Tooth infection K04.7 Hyperlipemia E78.5 Pneumonia J18.9 DVT prophylaxis Z29.9 (1) Hypothyroidism Hypothyroidism type: unspecified Qualified Code(s): E03.9 - Hypothyroidism, unspecified (2) HTN (hypertension) Hypertension type: essential hypertension Qualified Code(s): I10 - Essential (primary) hypertension
[2019-10-17] MEDS: ENOXAPARIN INJ 40 MG/0.4 ML SYR SQ SCH (19:03)
[2019-10-18] MEDS: LEVOTHYROXINE SODIUM 125 MCG TABLET PO SCH (05:31)
[2019-10-18] MEDS: DICLOFENAC SOD 1% GEL 100 GM TUBE EXT SCH ×3 (05:31→21:11)
[2019-10-18 06:42] LABS: Creatinine Clr Calc Pharmacy 118.1 ml/min; Est GFR (African American) 112.2; Est GFR (Non-African American) 96.8
[2019-10-18] MEDS: SACCHAROMYCES BOULARDII 250 MG CAP PO SCH (08:27)
[2019-10-18] MEDS: INSULIN GLARGINE SOLOSTAR 100 UNITS/ML 3 ML PEN SC SCH (08:28)
[2019-10-18] MEDS: INSULIN ASPART 100 UNITS/ML 3 ML PEN SC SCH ×4 (08:29→21:46)
[2019-10-18] MEDS: cefTRIAXone SODIUM 2,000 MG in DEXTROSE 5% 50 ML IV SCH (08:52)
[2019-10-18] MEDS: POLYETHYLENE (MIRALAX) 17 GM PACK PO SCH (08:52)
[2019-10-18] MEDS: lisinopriL 10 MG TAB PO SCH (08:56)
[2019-10-18] MEDS: METOPROLOL SUCC 50MG EXT REL TAB PO SCH (08:56)
--- NOTE | 2019-10-18 10:22 | Pharmacy Report ---
Pharmacy Glycemic Short Note 2 - Date of Service October 18, 2019 - Glycemic Short BSG Results (Last 24 hours): 10/17/19 10/17/19 10/17/19 12:24 17:10 20:39 POC Glucose 134 H 115 H 173 H 10/18/19 08:10 POC Glucose 237 H OUTPATIENT ANTIDIABETIC REGIMEN: * None * A1c = 6.9 % (09/26/19) (diagnostic for DM) ASSESSMENT: * Pt has received 13 units of insulin over the past 24hrs * 4 units of basal insulin * 9 units of prandial/correctional insulin * BSGs ranging 115-173 mg/dL YESTERDAY. * This morning fasting BSG = 237. Spoke to patient's nurse Flor, patient had open packets of crackers & giuliana crackers in her room this morning when nurse went in around 8 AM. This would explain elevated BSG this AM since it is not a true fasting. * Tightened Novolog CF this AM to 40 with breakfast. * BSG within goal at lunch today so loosened CF back to 45 then since patient has a tendency to have low BSGs at dinner time. PLAN FOR INPATIENT GLYCEMIC CONTROL: * Basal insulin - continue * Lantus 4 units SC daily * Bolus insulin - continue * NovoLog per scale ACHS or Q6hrs while NPO * Goal Range: Low 100 mg/dL - High 160 mg/dL * Correction Factor: 45 mg/dL/unit * Nutritional / Prandial insulin per carb ratio of 1 unit per 15 grams CHO PLAN FOR DISCHARGE: * HbA1c of 6.9% - continuing with diet control seems reasonable * Based on age and comorbidities - a reasonable A1c goal for AB is < 8% * Support patient self-management * Healthy Lifestyle (diet, exercise, and smoking cessation) * Prevention of complications (BP, Lipid goals, Immunizations) * Consider outpatient Diabetes Self-Management Education & Support
--- NOTE | 2019-10-18 16:23 | Hospitalist Progress Note ---
Date of Service October 18, 2019 Assessment & Plan (1) Meningitis: WBCs 551 on lumber puncture 10/10 - viral PCRs all negative. 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 Would also like to repeat MRI brain w/ contrast if Ms. Sanchez becomes agreeable - thus far she has declined * Neurology consulted -- appreciate assistance. * repeat CT brain with contrast ordered 10/18/19 (2) Generalized weakness: Left shoulder pain and weakness on admission, limited mobility affecting ADLs s/p fall. Calcific tendinosis noted on CT imaging. - Extensive work-up with ortho and ortho spine. Nothing acute inpatient needed. - Likely due to meningitis, lyme neuritis, slowly improving (3) HTN (hypertension): BPs continue be somewhat labile - increased lisinopril to 10mg on 10/10 - could titrate up further if needed. - Continue lisinopril, metoprolol - Continue hydralazine PRN (4) Diabetes: Most recent A1c 6.9%. Not on an outpatient medications -- should ideally be initiated on metformin but patient not wanting to be on additional medication at this time. - Sliding scale insulin - Glycemic pharmacy following (5) Hypothyroidism: Chronic. Stable. TSH 1.73. - Continue Synthroid 125mcg po daily (6) Tooth infection: Reported infection left bottom tooth -- had been attempting to get in with dentist but not yet able. Thought partial coverage with Keflex for recent LUE cellulitis. -imprioved with antibiotics - Continue ceftriaxone for meningitis (7) Hyperlipemia: Most recent cholesterol was September 2019 - patient should ideally be on statin given elevated cholesterol and atherosclerosis/stenosis on imaging. - Will hold off for now given generalized weakness (8) Pneumonia: Patient with recorded Pox of 74% on RA, hypoxia now resolved. - CT chest on 10/07 with LLL and RLL infiltrates with small b/l effusions. will complete longer than typical antibiotic treatments - Continue ceftriaxone for meningitis. - Finished doxycycline on 10/13. Respiratory status stable. (9) DVT prophylaxis: SCDs, Lovenox Admission and Anticipated Discharge Date Admission Date: October 07, 2019 Subjective Patient still with profound shoulder girdle weakness she has improving leg weakness. I did review the fact that her West Nile virus is negative, we discussed that neurology would like additional mri of her brain but she did refuse and will only agree to CT head Review of Systems Review of Systems: Mild distress and fatigue no headache, blurry or double vision no speech or swallowing issues no chest pain, pressure or palpitations no shortness of breath, cough or wheezes no abdominal pain, nausea or vomiting, diarrhea or constipation no dysuria, hematuria or frequency no focal joint pain or swelling no back pain, CVA tenderness or radicular pain no bruising, bleeding or rashes Remains with shoulder girdle weakness no complaints or anxiety or depression. Physical Exam Physical Exam: The patient appeared well nourished and normally developed. Vital signs as documented. Head exam is normocephalic atraumatic no scleral icterus Neck is without JVD, thyromegaly, or carotid bruits. Lungs are clear to auscultation, no focal loss of breath sounds Cardiac exam, Rhythm is regular.. No murmurs, rubs or gallops. Abdominal exam reveals normal bowel sounds, soft non tender, no masses Extremities are nonedematous and both pedal pulses are normal. Neurologic exam is alert and oriented, continues with focal shoulder weakness Skin is without bruises or rashes Psychologically is without concerns for anxiety or depression Results & Data Results & Data ([facility]) Vital Signs (Past 12 Hours) Vital Signs Temp Pulse Resp BP Pulse Ox 10/18/19 15:28 98.1 F 62 17 154/75 H 95 10/18/19 07:17 97.7 F 75 16 186/72 H 97 PG Care Time/CCT Total # of Minutes Spent Total Time Spent with Patient: Total time spent is greater than 50% in coordination of care (as documented) at patient's floor/unit and/or counseling patient: Coding Level of Care Code 91280 Subseq Hosp Care Lvl 2 Diagnoses Meningitis G03.9 Generalized weakness R53.1 HTN (hypertension) I10 Hypertension type: essential hypertension Diabetes E11.9 Hypothyroidism E03.9 Hypothyroidism type: unspecified Tooth infection K04.7 Hyperlipemia E78.5 Pneumonia J18.9 DVT prophylaxis Z29.9 (1) HTN (hypertension) Hypertension type: essential hypertension Qualified Code(s): I10 - Essential (primary) hypertension (2) Hypothyroidism Hypothyroidism type: unspecified Qualified Code(s): E03.9 - Hypothyroidism, unspecified
[2019-10-18] MEDS: ENOXAPARIN INJ 40 MG/0.4 ML SYR SQ SCH (18:09)
[2019-10-18] MEDS ORDERED: IOVERSOL 100ml IV ONE (19:50)
--- NOTE | 2019-10-18 20:05 | CT Scan Report ---
CT SCAN OF THE BRAIN COMBO CLINICAL HISTORY: Meningitis. Left-sided weakness. COMPARISON STUDY: MRI of the brain dated 10/10/2019. CT of the brain dated 10/05/2019. TECHNIQUE: Axial CT scan of the brain is performed from the vertex to the skull base before and follo wing the IV administration of 94 cc of Optiray 320. IV contrast was administered without complication . A dose lowering technique was utilized adhering to the principles of ALARA. CT DOSE: 1228.53 mGy.cm FINDINGS: Brain parenchyma: There are age-related involutional changes noting moderate subcortical and periven tricular microangiopathic change. There is no hemorrhage, mass effect, or evidence of acute territori al ischemia by CT criteria. No abnormal enhancement or mass lesion is suggested on the postcontrast i mages. Ferguson-white matter differentiation is preserved. No extra-axial fluid collection is seen. Ventricles, sulci, cisterns: Prominent secondary to involutional change. Intracranial vasculature: There is atherosclerotic calcification of the cavernous carotid and vertebr al arteries. Calvarium: Unremarkable. Sinuses and mastoids: The visualized paranasal sinuses are clear. The mastoid air cells are well pneu matized. Orbits: The bony orbits are grossly intact. IMPRESSION: 1. There is no hemorrhage, mass effect, or evidence of acute territorial ischemia by CT criteria. 2. No abnormal enhancement or mass lesion is suggested on the postcontrast images. ACT 112: Negative or not required by law. Electronically signed by: Miki Harden M.D. 10/18/2019 8:04 PM
[2019-10-19] MEDS: DICLOFENAC SOD 1% GEL 100 GM TUBE EXT SCH ×2 (05:10→14:00)
[2019-10-19] MEDS: LEVOTHYROXINE SODIUM 125 MCG TABLET PO SCH (05:18)
[2019-10-19] MEDS: POLYETHYLENE (MIRALAX) 17 GM PACK PO SCH (09:10)
[2019-10-19] MEDS: INSULIN GLARGINE SOLOSTAR 100 UNITS/ML 3 ML PEN SC SCH (09:16)
[2019-10-19] MEDS: cefTRIAXone SODIUM 2,000 MG in DEXTROSE 5% 50 ML IV SCH (09:16)
[2019-10-19] MEDS: INSULIN ASPART 100 UNITS/ML 3 ML PEN SC SCH ×3 (09:19→17:41)
[2019-10-19] MEDS: SACCHAROMYCES BOULARDII 250 MG CAP PO SCH (09:21)
[2019-10-19] MEDS: lisinopriL 10 MG TAB PO SCH (09:27)
[2019-10-19] MEDS: METOPROLOL SUCC 50MG EXT REL TAB PO SCH (09:27)
--- NOTE | 2019-10-19 09:30 | Neurology Progress Note ---
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 Continue with ceftriaxone for 21 days total therapy. There does not appear to be any supportive evidence of GEOPHYSICS PROFESSOR abscess or midbrain stroke on follow-up imaging or clinically at this point in time. I do not think pursuing an additional brain MRI is necessary at this time although this test could be done in the outpatient setting depending on her clinical status going forward. (2) Generalized weakness: Generalized weakness, probably nonspecific and occurring in the context of Lyme disease and further confounded by bilateral shoulder arthropathy, spinal stenosis, and a chronic right foot drop. Patient may have an underlying diabetic or idiopathic polyneuropathy as well. Acetylcholine receptor and striated muscle antibodies are pending. An outpatient EMG with repetitive stimulation could be considered as well. She has a normal CK, ESR, and TSH. Patient will likely need inpatient rehabilitation prior to going home. Follow-up in outpatient neurology clinic with either Dr. Han or Dr. Jefferson. Please contact me if I can be of further assistance. 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 She had presented with subacute generalized weakness and a history of recurrent falls. She has a history of chronic lumbar spinal stenosis, right foot drop, and diabetes mellitus. She was initially evaluated by Dr. Han in neurological consultation during this hospitalization, and subsequently by Dr. Jefferson. She has had extensive testing including MRI of the brain and entire neuro axis and completed a repeat CT of the head with and without contrast yesterday. Her brain MRI completed October 10, 2019 revealed age-related atrophy and cerebrovascular disease but was otherwise negative for an obvious stroke or other acute process. Dr. 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 She did recommend a follow-up brain MRI, however, the patient has adamantly refused due to claustrophobia. Her repeat CT of the head completed yesterday was unremarkable. I did review the images and radiologist's interpretation of these tests. Currently, the patient denies experiencing any diplopia, change in speech, d ifficulty swallowing, vertigo or dizziness. She denies any muscle soreness but does complain of a feeling of generalized weakness and continues to have difficulty lifting her arms up out of the bed due to proximal upper extremity weakness. She denies any difficulty lifting her head up out of the bed. She does have a history of bilateral shoulder arthropathy/rotator cuff tears. She has chronic mild ambulatory dysfunction as well and typically ambulates with a cane in the context of a chronic right foot drop and lumbar spinal stenosis. She currently denies any fevers or chills but does have a persistent low-grade cough. Review of Systems Constitutional: no fever and no chills Eyes: no diplopia Respiratory: + cough Musculoskeletal: + back pain; no myalgia Neurologic: + paresthesia; no tremor(s), no abnormal movements, no headache(s), no confusion and no memory loss Complains of tingling in the hands. Results & Data ([facility]) Vital Signs (Past 12 Hours) Vital Signs Temp Pulse Resp BP Pulse Ox 10/19/19 07:38 36.7 C 79 16 194/80 H 97 10/18/19 23:20 36.6 C 77 16 177/79 H 95 Laboratory Results Lumbar puncture completed October 11, 2019, results reviewed. CSF bloody, red, xanthochromic, WBC 551, RBC 13,000, glucose 93, CSF total protein 514.9, there were 4 CSF Lyme IgG bands and 3 CSF Lyme IgM bands noted. CSF HSV 1 and 2 PCR is negative. Other CSF PCR's reviewed as well and are negative, see report. A TSH from October 04 was 1.730, and ESR was 21, a CK was 165 Diagnostic Findings Results of imaging reviewed and described above. Exam (Neuro) Constitutional: well developed and well nourished; no acute distress Neurologic: Oriented to:: Person, Place and Time Memory: Short Term Intact and Remote Intact Attention: Span Intact and Concentration Intact Speech Fluency: negative Dysarthria Speech Aphasia: negative Aphasia Fund of Knowledge: Current Events, Past History and Vocabulary Cranial Nerves: Normal II, III, IV, , V, VII, VIII, IX, X, XI and XII Motor Strength: negative Normal Lower Extremities (Mild bilateral lower extremity weakness, diffuse, with superimposed right foot drop (chronic)) and Normal Upper Extremities (Patient unable to elevate or lift her upper arms against gravity due to weakness of shoulder abduction bilaterally. There is mild weakness of the triceps bilaterally. Biceps strength seems normal. No wrist drop with either hand. Ent Surgeon strength intact bilaterally.) Motor Tone: Normal Lower Extremities and Normal Upper Extremities Spasticity: None Muscle Bulk/Involuntary Movements: No Involuntary Movements Sensation: Light Touch Intact; negative Vibration Intact (There is mildly diminished vibratory sensation at the ankles bilaterally.) Coordination: negative Dysdiadochokinesia, Finger-Nose Abnormal (Mild difficulty with [id number] bilaterally due to proximal weakness, no gross dysmetria) and Heel-Nayak Abnormal (Mild difficulty with [id number]-ln-nelc bilaterally due to mild diffuse weakness of the lower limbs, no gross dysmetria or ataxia.) Deep Tendon Reflexes: Rt Biceps: 1+, Lt Biceps: 1+, Rt Patellar: 1+, Lt Patellar: 1+, Rt Ankle: 0 and Lt Ankle: 0 Special Tests: negative Babinski Present PG Care Time/CCT Total # of Minutes Spent Total Time Spent with Patient: Total time spent is greater than 50% in coordination of care (as documented) at patient's floor/unit and/or counseling patient: Coding Level of Care Code 56667 Subseq Hosp Care Lvl 3 Diagnoses Meningitis G03.9 Generalized weakness R53.1 Right foot drop M21.371
--- NOTE | 2019-10-19 15:26 | Discharge Summary ---
Date of Service October 19, 2019 Admission HPI Per Admitting Provider Colleen Sanchez is an 79yo C female presenting from home after a mechanical fall. Patient recently completed treatment for a LUE cellulitis with a course of Keflex. She reports feeling weak for the last 4-5 days as well as having worsening pain in her left shoulder as well as new pain in her right shoulder. This afternoon patient tripped and fell into her bathtub. She denies LOC or head trauma. No CP/SOB/Palpitations/Dizziness/Numbness/Weakness or incontinence preceding or following the fall. She was unable to get out of the bathtub due to weakness. She required assistance from 3 people to get her from the bathroom and ambulate to her bed. Patient complaining of left shoulder pain and weakness, inability to lift her arms and difficulty with ADLs. She denies headache/jaw claudication or leg weakness. No fevers/chills/CP/SOB/cough. No recent travel or exposure to Covid-19 positive individuals. She was evaluated by her PCP for this complaint on 09/26/19. Imaging was offered but patient declined at that time. OMT was offered as well. 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 Lungs are clear to auscultation and appear unlabored Cardiac exam, Rhythm is regular.. No murmurs, rubs or gallops. Abdominal exam reveals normal bowel sounds, soft non tender, no masses Extremities are still with bilateral weakness of shoulder girdle Neurologic exam is alert and oriented, no focal loss of strength or sensation Skin is without bruises or rashes Psychologically is without concerns for anxiety or depression Discharge Data Allergies Allergy/AdvReac Type Severity Reaction Status Date / Time Penicillins Allergy Unknown HIVES TO Verified 10/05/19 23:03 "CILLINS" Consultations 10/06/19 00:07 ED Decision to Admit Stat 10/06/19 13:20 Consult Orthopedic Surgery Routine 10/07/19 10:23 Consult Orthopedic Surgery Routine 10/08/19 22:41 Consult Neurology Routine 10/11/19 15:56 Consult Semiconductor Processing Group Leader Routine Ordered Studies 10/05/19 21:51 CT head/brain wo con Urgent 10/05/19 22:26 CT angio head w con Urgent CT angio neck with con Urgent 10/06/19 03:23 MR shoulder LT wo con Routine 10/06/19 16:34 MR cervical spine wo con Routine MR lumbar spine wo con Routine MR thoracic spine wo con Routine 10/08/19 16:59 CT chest wo con Urgent 10/10/19 17:31 MR brain wo con Routine 10/11/19 07:00 FL lumbar puncture diagnostic Routine 10/11/19 17:18 US point of care ultrasound Routine 10/18/19 12:37 CT head/brain wo/w con Routine Hospital Course (1) LAUNDRY TECH Lyme disease: WBCs 551 on lumber puncture 10/10 - viral PCRs all negative. 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 Increased ceftriaxone to 2g BID to cover for meningitis 10/10 * Lyme WB with 3 reactive IgM bands and 3 reactive IgG bands * per neurology read of MRI - small old left temporal lobe stroke with possible pus vs subacute anterior midbrain infarct, mild SVID * Neurology recommends ceftriaxone for the full duration of LAUNDRY TECH treatment (usually 21 days), last dose 11/01/19. * Neurology consulted -- appreciate assistance. * repeat CT brain with contrast ordered 10/18/19 (2) Generalized weakness: Left shoulder pain and weakness on admission, limited mobility affecting ADLs s/p fall. Calcific tendinosis noted on CT imaging. - Extensive work-up with ortho and ortho spine. Nothing acute inpatient needed. - Likely due to geriatric nurse lyme infection, lyme neuritis, slowly improving (3) HTN (hypertension): BPs continue be somewhat labile - increased lisinopril to 10mg on 10/10 - could titrate up further if needed. - Continue lisinopril, metoprolol (4) Diabetes: Most recent A1c 6.9%. Not on an outpatient medications -- should ideally be initiated on metformin but patient not wanting to be on additional medication at this time. - Sliding scale insulin - does only need low doses may consider oral medications on discharge (5) Hypothyroidism: Chronic. Stable. TSH 1.73. - Continue Synthroid 125mcg po daily (6) Tooth infection: Reported infection left bottom tooth -- had been attempting to get in with dentist but not yet able. Thought partial coverage with Keflex for recent LUE cellulitis. -imprioved with antibiotics - Continue ceftriaxone for meningitis -may benefit from outpt dental referral (7) Hyperlipemia: Most recent cholesterol was 210 September 2019 - patient should ideally be on statin given elevated cholesterol and atherosclerosis/stenosis on imaging. - Will hold off for now given generalized weakness (8) Pneumonia: Patient with recorded Pox of 74% on RA, hypoxia now resolved. - CT chest on 10/07 with LLL and RLL infiltrates with small b/l effusions. will complete longer than typical antibiotic treatments - Continue ceftriaxone for meningitis. - Finished doxycycline on 10/13. Respiratory status stable. Total Time Total Time Spent Total Time Spent (In Minutes): It required greater than 30 minutes to prepare this patient for discharge Discharge Plan Discharge Items Patient Disposition: Transfer Assisted Fac Reason For Visit: FALL, WEAKNESS Discharge Diagnosis: lyme neuritis b/l shoulder girdle weakness Activity: Per Instructions section Activity Comment: per PT/OT Non-emergency contact: Primary Care Provider and Neurologist Call non-emergency contact if: you have any medication questions and your symptoms worsen Follow-up/Referrals: Tamiko Crespo CRNP [Primary Care Provider] - Diet: Regular Addtl Attending Provider Instructions: please finish all antibiotics thru 11/01/19 1)Lyme neuritis, meningitis WBCs 551 on lumber puncture 10/10 - viral PCRs all negative. 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 Increased ceftriaxone to 2g BID to cover for meningitis 10/10 Lyme WB with 3 reactive IgM bands and 3 reactive IgG bands per neurology read of MRI - small old left temporal lobe stroke with possible pus vs subacute anterior midbrain infarct, mild SVID Neurology recommends ceftriaxone for the full duration of LAUNDRY TECH treatment (usually 21 days), last dose 11/01/19. Would also like to repeat MRI brain w/ contrast if Ms. Sanchez becomes agreeable - thus far she has declined Neurology consulted -- appreciate assistance. repeat CT brain with contrast ordered 10/18/19 (2) Generalized weakness: Left shoulder pain and weakness on admission, limited mobility affecting ADLs s/p fall. Calcific tendinosis noted on CT imaging. - Extensive work-up with ortho and ortho spine. Nothing acute inpatient needed. - Likely due to meningitis, lyme neuritis, slowly improving (3) HTN (hypertension): BPs continue be somewhat labile - increased lisinopril to 10mg on 10/10 - could titrate up further if needed. - Continue lisinopril, metoprolol (4) Diabetes: Most recent A1c 6.9%. Not on an outpatient medications -- should ideally be initiated on metformin but patient not wanting to be on additional medication at this time. - Sliding scale insulin -may eventually need po meds (5) Hypothyroidism: Chronic. Stable. TSH 1.73. - Continue Synthroid 125mcg po daily (6) Tooth infection: Reported infection left bottom tooth -- had been attempting to get in with dentist but not yet able. Thought partial coverage with Keflex for recent LUE cellulitis. -imprioved with antibiotics - Continue ceftriaxone for geriatric nurse lyme infection (7) Hyperlipemia: Most recent cholesterol was September 2019 - patient should ideally be on statin given elevated cholesterol and atherosclerosis/stenosis on imaging. (8) Pneumonia: Patient with recorded Pox of 74% on RA, hypoxia now resolved. - CT chest on 10/07 with LLL and RLL infiltrates with small b/l effusions. will complete longer than typical antibiotic treatments - Continue ceftriaxone for geriatric nurse lyme infection - Finished doxycycline on 10/13. Respiratory status stable. Pending Studies at Discharge: No Stand-Alone Forms: My [facility] Skilled Items Patient informed of condition?: Yes DNR: No Discharge Level of Care: Skilled Communicable Disease: No Discharge Prognosis: Stable Lines: US Guided Peripheral IV Urinary Catheter: No Medications and DC Order Prescriptions: New lisinopril 10 mg Tablet 10 mg PO QAM Qty: 30 RF: 3 insulin aspart U-100 [Novolog Flexpen U-100 Insulin] 100 unit/mL (3 mL) Insulin Pen 1 unit SC ACHS Qty: 3 RF: 0 Lantus Solostar U-100 Insulin 100 unit/mL (3 mL) Insulin Pen 4 unit SC DAILY Qty: 1 RF: 0 diclofenac sodium [Voltaren] 1 % Gel 2 g EXT Q8 Qty: 1 RF: 0 ceftriaxone 2 gram recon soln 2 g IV DAILY Qty: 13 RF: 0 Continued levothyroxine [Synthroid] 125 mcg tablet 125 mcg PO DAILY Qty: 90 RF: 1 Probiotic & Vit B 1 tab PO DAILY RF: 0 Changed metoprolol succinate 25 mg tablet extended release 24 hr 50 mg PO DAILY Qty: 30 RF: 1 Discontinued cephalexin [Keflex] 250 mg capsule 250 mg PO TID RF: 0 [employer] 1 tab PO DAILY RF: 0 Discharge Orders: Discharge Order (Routine); Ordered 10/19/19 Ordered By: Jesse Nation/Other Patient Handouts: [facility] Your Central [facility]in Access Admission Data Admit Date/Time: 10/07/19 17:31 Attending Provider: Jesse Fox Admit Provider: Gisela Clemente Primary Care Provider: Tamiko Crespo. Other Providers: Ashanti Quintero ; [facility] ; Kishore Aj ; Angel Dye ; Amado Han ; [facility] ; [facility] [place] ; Alfredo Noriega Coding Level of Care Code D/C Day Management >30 mins Diagnoses LAUNDRY TECH Lyme disease A69.22 Generalized weakness R53.1 HTN (hypertension) I10 Hypertension type: essential hypertension Diabetes E11.9 Hypothyroidism E03.9 Hypothyroidism type: unspecified Tooth infection K04.7 Hyperlipemia E78.5 Pneumonia J18.9
[2019-10-21 13:18] LABS: Anti-Striated Muscle NEGATIVE (NEGATIVE); Receptor Binding Ab <0.30 nmol/L
--- NOTE | 2019-11-03 10:01 | Coding Query ---
CODING QUERY To promote full compliance with coding requirements relating to patient care, provider participation is requested in all cases of sightseeing guide uncertainty. Please assist us with the question(s) below: Coding Question(s): There is documentation in the record and on the Discharge Summary of, "per neurology read of MRI - small old left temporal lobe stroke with possible pus vs subacute anterior midbrain infarct, mild SVID". The last Neurology Progress Note on 10/19/19 documents, "There does not appear to be any supportive evidence of ELECTRICAL MAINTENANCE TECHNICIAN abscess or midbrain stroke on follow-up imaging or clinically at this point in time. I do not think pursuing an additional brain MRI is necessary at this time although this test could be done in the outpatient setting depending on her clinical status going forward.". Please clarify below, in your clinical opinion, regarding the subacute anterior midbrain infarct. ( ) Possible subacute anterior midbrain infarct was treated/evaluated/monitored during this admission ( xxx ) Ruled-Out for subacute anterior midbrain infarct ( ) Other: Please Specify Physician's Response(s): Thank you Michelle Mendez Principal Diagnosis: "that condition established after study, to be chiefly responsible for occasioning the admission of the patient to the hospital for care." Co-Existing Principal Diagnosis: "when two or more diagnoses equally meet the criteria for principal diagnosis as determined by the circumstances of admission, diagnostic work up, and/or therapy provided, and the Alphabetic Index, Tabular List, or another coding guideline does not provide sequencing direction, any one of the diagnoses may be sequenced first." "When the physician has documented what appears to be a current diagnosis in the body of the record, but has not included the diagnosis in the final diagnostic statement, the physician should be asked whether the diagnosis should be added." (Source Coding [facility] 2 QTR90. p3-4) LESLIE
== END 2019-10-19 18:20 | DRG 867 ==
LOC: ED 21:30 → 3E 21:30 → SUATTDRO 10-06 01:04 → 3E 10-06 01:59 → SUATTDRO 10-07 17:31 → 3W 10-09 14:38